=== PATIENT | male | born 1945 | race Caucasian/White ===

== ENCOUNTER → 2022-02-24 14:33 | Outpatient (CLI) | payer MEDICARE, OTHER, SELFPAY ==
[2022-02-24 15:05] LABS: Appearance Urine UA CLEAR; Bilirubin Urine UA NEGATIVE (NEGATIVE); Color Urine UA YELLOW; Glucose Urine UA NEGATIVE (Negative); Ketones Urine UA TRACE (NEGATIVE); Leukocyte Esterase Urine UA NEGATIVE (NEGATIVE); Nitrite Urine UA NEGATIVE (Negative); Occult Blood Urine UA NEGATIVE (Negative); Protein Urine UA TRACE (Negative); Specific Gravity Urine UA 1.025 (1.000-1.035); Urobilinogen Urine UA 0.2 E.U./dL (0.2)
[2022-02-24 15:16] LABS: Add Manual Diff / Slide Review NO; Basophils Absolute Auto 100 /uL (0-100); Basophils Percent Auto 1.2 % (0-2); Eosinophils Absolute Auto 100 /uL (0-450); Eosinophils Percent Auto 2.1 % (2-4); Hematocrit 41.1 % (41-53); Hemoglobin 14.2 g/dL (13.5-17.5); Lymphocytes Absolute Auto 1400 /uL (1100-4500); Lymphocytes Percent Auto 21.7 % (25-40); Mean Corpuscular HGB Conc 34.4 % (30-36); Mean Corpuscular Hemoglobin 32.5 PG (26-34); Mean Corpuscular Volume 94.4 fL (80-100); Monocytes Absolute Auto 600 /uL (0-900); Monocytes Percent Auto 9.4 % (3-14); Neutrophils Absolute Auto 4300 /uL (1500-7000); Neutrophils Percent Auto 65.6 % (50-75); Platelet Count 251 X10^3/uL (150-400); Red Blood Cell Count 4.36 X10^6/uL (4.5-5.9); Red Cell Distribution Width 12.6 % (11.6-14.8); White Blood Cell Count 6.5 X10^3/uL (4.5-11.0)
[2022-02-24 15:23] LABS: Bacteria Urine None Seen; Culture Indicated Urine Cult Not Indicated; Hyaline Casts Urine 1-5/LPF; RBC Urine None Seen (0-5/HPF); Squamous Epithelial Cell Urine None Seen (0-5/HPF); WBC Urine None Seen (0-5/HPF)
[2022-02-24 15:34] LABS: Hemoglobin A1C% w Est Avg Glu 6.2 % (4.0-6.0)
[2022-02-24 17:25] LABS: BUN Creatinine Ratio 20.9 (6-22); Blood Urea Nitrogen 23 mg/dL (9-20); Calcium 9.6 mg/dL (8.4-10.2); Carbon Dioxide 25 mmol/L (22-32); Chloride 96 mmol/L (98-107); Estimated Glomerular Filt Rate > 60 mL/min (>60); Glucose 112 mg/dL (80-110); HEMOLYSIS < 15 (0-50); Potassium 4.4 mmol/L (3.4-5.1); Sodium 135 mmol/L (137-145)
== END ==
PROVIDERS: PCP Nurse Practitioner; Referring Provider Orthopaedic Surgery; Visit Provider Orthopaedic Surgery
DX: Z01.818 Encounter for other preprocedural examination (principal); Z01.812 Encounter for preprocedural laboratory examination; R73.9 Hyperglycemia, unspecified; N39.0 Urinary tract infection, site not specified
CPT/HCPCS: 36415; 80048; 81001; 83036; 85025; 93005

== ENCOUNTER → 2022-05-15 09:54 | Outpatient (CLI) | payer MEDICARE, OTHER, SELFPAY ==
[2022-05-15 10:29] LABS: COVID19 -Nasal RAPID Negative (Negative)
== END ==
PROVIDERS: PCP Nurse Practitioner; Referring Provider Orthopaedic Surgery; Visit Provider Orthopaedic Surgery
DX: Z20.822 Contact with and (suspected) exposure to COVID-19 (principal)
CPT/HCPCS: 87635; C9803

== ENCOUNTER 2022-05-16 06:12 | Day surgery (SDC) | payer MEDICARE, OTHER, SELFPAY ==
[2022-05-09 08:32] VITALS: BMI 25.3
[2022-05-16] VITALS (14 sets, daily range): BP systolic 101–138; BP diastolic 46–74; PULSE 64–89; RESP 16–26; TEMP 36–36.7; O2SAT 91–99; BMI 25.3
--- NOTE | 2022-05-16 06:50 | DI.RAD.S_ITS ---
PROCEDURE: XR HIP W PEL IF DONE LT 2V COMPARISON: None. INDICATIONS: prosthesis placement inneroperative FINDINGS: 4 intraoperative fluoroscopic images obtained demonstrating left hip arthroplasty changes. IMPRESSION: Intraprocedural fluoroscopy was provided for guidance and anatomical localization. Please see the procedure report for further details. Dictated by: Raúl Seaman M.D. on 05/16/2022 at 21:08 Approved by: Raúl Seaman M.D. on 05/16/2022 at 21:09
[2022-05-16] MEDS: LACTATED RINGERS 1,000 ML 84 ML IV ×2 (07:12→10:18)
[2022-05-16] MEDS: VANCOMYCIN 1,000 MG/200 ML PIGGYBACK 200 MG IV (07:18)
[2022-05-16] MEDS: PREGABALIN 75 MG CAPSULE PO (07:25)
[2022-05-16] MEDS: CELECOXIB 200 MG CAPSULE PO (07:25)
[2022-05-16] MEDS: ACETAMINOPHEN 325 MG TABLET 975 MG PO (07:30)
--- NOTE | 2022-05-16 07:47 | PM.PREOP ---
Pre-operative Note COVID-19 COVID-19 status: Negative Interval Note History & Physical reviewed/Exam performed by Physician: Yes Changes to H&P: No
--- NOTE | 2022-05-16 07:47 | PM.OP.1 ---
Operative Date/Time/Diagnoses Date of procedure: 05/16/22 Time of procedure: 07:55 Pre-op diagnosis: left hip OA Post-op diagnosis: same Procedure & Clinicians Procedure: left total hip arthroplasty anterior approach Same procedure as scheduled: Yes Surgeon: Ashlee Bartholomew [employer] Laminator: Ellen Francisco Anesthesia Type: General and Spinal Operative Notes Findings: Severe left hip osteoarthritis, good bone adequate stability Closure Type: primary Specimen(s): none sent Prosthetic devices, grafts, tissues, transplants, or devices: Bartholomew and Nephew 56 mm R3, neutral poly liner, size 7 standard offset anthology, 36 x +0 cobalt chromium femoral head, one 6.5 mm screw Estimated Blood Loss (mL): 250 Blood products transfused: none Procedure in detail: The patient was brought to the operating room. Patient was carefully positioned in the supine position. Time-out was performed and antibiotics were given. Anesthesia was induced. He was positioned in the on the table in order to allow hyperextension of the hip. The left lower extremity was prepped and draped in a standard sterile fashion. An anterior left hip incision was made 1 fingerbreadth lateral to the anterior superior iliac spine and extended distally towards the greater trochanter. Dissection was carried out through skin and subcutaneous tissues. Superficial hemostasis was achieved. The fascia over the tensor fascia ankit was defined and incised with a knife. Two Allis clamps were used to grasp the fascia. Tensor fascia ankit was retracted laterally. A gelpi retractor was placed. Dissection was carried out down along the neck. The circumflex vessels were carefully identified and cauterized with the Aqua Mantis. There was good visualization of the femoral neck. A Cobra was placed superior to the neck and the gluteus fibers were carefully stripped from that superior aspect of the capsule. A 2nd retractor was placed along the inferior aspect of the neck. The rectus insertion along the capsule was partially released. A 3rd retractor that was then gently placed over the rim of the acetabulum under the rectus. Capsule was carefully incised and released from the intertrochanteric line circumferentially superior to the mid sagittal line and inferiorly to the mid sagittal line until the lesser trochanter was palpable. A tag stitch was placed both in the superior and inferior limb of the capsular insertion. Along the acetabulum capsule was also released up to the mid sagittal 12:00 position. A portion of the labrum was resected. A saw was used to perform an osteotomy at the level of the intertrochanteric line and the junction of the superior femoral neck leaving approximately 1 finger breath of residual inferior neck above the lesser trochanter. A 2nd cut was made along the femoral neck at the base of the head and a napkin ring of neck was removed. Corkscrew was placed in the femoral head and the head was removed without difficulty. Retractors were then repositioned around the acetabulum. Residual labrum was resected and additional osteophytes were removed. A reamer that was 4 mm below the templated size was placed by hand in the acetabulum and it was reamed to centralize the acetabulum. It was then reamed up to 2 under the templated size and fluoroscopy was brought in to confirm the position of the reaming and depth of reaming. I reamed 1 under the anticipated size. A trial cup was placed and noted that it was appropriately sized and fluoroscopy confirmed position and depth. The component was open and inserted without difficulty fluoroscopic imaging was used to confirm that the cup had been adequately seated and was well positioned. It was further stabilized with a single screw. Neutral poly liner was placed. The cup was tested and noted to be stable. Attention was then directed to the femur. The femur was gently hyperextended additional capsular release was performed as needed in order to allow adequate visualization of the proximal femur with elevation of the femur. Patient was placed in a hyperextended slightly adducted position with maximum external rotation. Box osteotome was used to check for any residual neck as well as sclerotic bone along the trochanter. Kinzers pepper was placed in the femur. Additional broaching was performed. Canal finder was used to determine the alignment of the canal and position. Size 1 broach was placed. The canal was then appropriately broached up to the templated size as long as there was adequate stability of the broach and serial advancement of the broach without excessive impingement. Specific attention was directed at avoiding varus attempting to direct the distal aspect of the broach more anteriorly and avoiding excessive anteversion. Trial reduction showed acceptable range of motion, good stability, no posterior impingement, amish of leg length and appropriate lateral shuck. I also hyperflexed the hip and checked that there was no impingement anteriorly and there was good stability with flexion, adduction and internal rotation. Marcaine and Exparel were injected. The stem was placed without difficulty. Repeat trial reduction and x-ray showed acceptable overall position, length, and no evidence of the femoral fracture. Final head was placed. Wound was meticulously irrigated with normal saline. The hip was reduced and additional Exparel and Marcaine were injected. The capsule was closed with interrupted nonabsorbable sutures. The fascia of the tensor was closed with interrupted and running Vicryl. No drain was placed. Any tensor fascia ankit muscle that appeared to be contused or injured which was a minimal amount was carefully resected. Capsule around the tensor was injected with Exparel and Marcaine. The skin was closed with barbed stitches for the subcutaneous tissue and skin. We also used surgical glue. The wound was dressed sterilely. Brief Betadine soak was also used and was meticulously irrigated with normal saline. Patient was transferred to recovery room in satisfactory condition. Complications: none Post-operative Condition: stable Disposition: Acute Care Plan for aftercare: The patient will be maintained on a standard total hip replacement protocol with weight bearing as tolerated and anterior hip precautions. The patient will receive Aspirin and sequential compression devices for DVT prophylaxis. The patient will be discharged home when safe for the home environment.
[2022-05-16] MEDS: CEFAZOLIN 2 GM/100 ML PREMIX 100 ML IV ×2 (08:05→15:38)
[2022-05-16] MEDS: TRANEXAMIC ACID 1,000 MG VIAL 1000 MG INJ ×2 (08:10→10:05)
--- NOTE | 2022-05-16 08:24 | SUR.OPER ---
Supine on padded Whitman table with bilateral legs secured in padded positioning boots and suspended in positioning spars, operative leg in traction per surgeon. Head on one pillow. Arm on non-operative side secured on padded armboard <90 degrees abduction. Arm on operative side padded and resting across chest then secured with tape over sheet. Padded perineal post in place per surgeon.
[2022-05-16] MEDS: BUPIVACAINE LIPOSOME 266 MG/20 ML VIAL INJ (08:30)
[2022-05-16] MEDS: BUPIVACAINE 0.25% (PF) 60 ML, EPINEPHrine 0.3 MG INJ (08:33)
--- NOTE | 2022-05-16 11:00 | DI.RAD.S_ITS ---
PROCEDURE: XR HIP W PEL IF DONE LT 2V INDICATIONS: LEFT ANTERIOR HIP POST OP TECHNIQUE: 2 view(s) of the hip acquired. COMPARISON: [facility], [place], XR HIP W PEL IF DONE LT 2V, 05/16/2022, 9:25. FINDINGS: Bones: Patient is status post left hip arthroplasty, with hardware components in expected positions. The hip joint appears congruent. The visualized bony structures appear intact. Degenerative changes of the right hip are present. Soft tissues: Overlying postoperative changes are noted. Vascular calcifications are present. IMPRESSION: Postsurgical changes from left hip arthroplasty. No definite unexpected findings visualized. Dictated by: Raúl Seaman M.D. on 05/16/2022 at 20:50 Approved by: Raúl Seaman M.D. on 05/16/2022 at 20:54
[2022-05-16] MEDS: LACTATED RINGERS 1,000 ML 125 ML IV ×2 (11:52→20:57)
[2022-05-16] MEDS: IBUPROFEN 400 MG TABLET PO ×2 (11:52→17:49)
--- NOTE | 2022-05-16 12:48 | PC.NURSE ---
Patient admitted from PACU to room 218, oriented to room and call light. VSS. Left anterior hip incision has aquacel dressing in place, CDI. Patient moving all extremities. Denies pain. Urinal placed within reach. IV fluids infusing as ordered. Continue to monitor. Anticipate physical therapy eval today.
--- NOTE | 2022-05-16 14:30 | PT.IIE ---
Current Diagnoses Bilateral primary osteoarthritis of hip (05/16/22) Surgery Performed Operation Date: 05/16/22 07:45 Actual Procedures p Total Hip Arthroplasty/Anterior Approach(Left) - Ashlee Bartholomew MD Surgical History (Last Updated 05/09/22 @ 09:24 by Abby Johnson, RN) Hx of appendectomy (1971) Hx of cholecystectomy (2018) Hx of tonsillectomy Medical History (Last Updated 05/09/22 @ 09:24 by Abby Johnson RN) Diabetes (~1987) Hearing impaired HLD (hyperlipidemia) HTN (hypertension) HECTOR (obstructive sleep apnea) Osteoarthritis Seasonal allergies Sinus drainage Physical Therapy Inpatient Evaluation/Re-Eval M1 PT/OT-IP Prior Functional Status Start: 05/16/22 15:54 Freq: NEEDED Status: Active Protocol: Document 05/16/22 14:30 AB (Rec: 05/16/22 16:08 AB [email or web address] Medical Review Prior Functional Status Medical History Reviewed Yes Communication able to make needs known Mobility and Gait pt stated that he is independent with all mobilities and ambulation without AD Social History Household Members spouse Living Arrangements House Comment pt's has previous back surgery and is limited to the assistance she will be able to provide the pt Number of Floors (Floors) 3 or More Floors Number of Stairs To Enter/Railing? lives on a split level house 1 step to enter 7 steps R rail +L ledge ascending to main level of the house Home Environment High Toilet,Walk in Shower Home Equipment Front Wheel Walker,Shower Seat with Backrest M2 PT-IP Current Condition Start: 05/16/22 15:54 Freq: NEEDED Status: Active Protocol: Document 05/16/22 14:30 AB (Rec: 05/16/22 16:08 AB [email or web address]) Physical Therapy Current Condition Current Condition Evaluation Date 05/16/22 Treatment Diagnosis s/p L EMMA anterior approach; difficulty in walking Onset Date 05/16/22 M3 PT-IP Subjective Start: 05/16/22 15:54 Freq: NEEDED Status: Active Protocol: Document 05/16/22 14:30 AB (Rec: 05/16/22 16:08 AB [email or web address]) Subjective Physical Therapy Visit Type Type Initial Evaluation Visit Start Time 14:30 Visit Stop Time 15:20 Total Visit Minutes 50 Number of SPANISH TEACHER Visits 0 Physical Therapy Visit Comments Patient Comments agreeable to do PT Therapy Pain Assessment Pain When Pain Assessed During Mobility Location Left Hip Intensity 2 Scale Used Numeric (0 - 10) Pain Management Techniques Apply Cold,Distraction, Modification of Treatment,Re- positioning,Timing of Activity with Medications M4 PT-IP Mobility and Gait Start: 05/16/22 15:54 Freq: NEEDED Status: Active Protocol: Document 05/16/22 14:30 AB (Rec: 05/16/22 16:08 [id number]) PT-Bed Mobility Assessment Supine to Sit Supine to Sit Standby Assistance Sit to Supine Sit to Supine Standby Assistance PT-Transfer Assessment Sit to and From Stand Sit to and from Stand Contact Guard Assistance,1 Person Assistance,Use of Upper Extremities Equipment Transfer Assistive Device Gait Belt,Front Wheeled Walker Orthotic/Prosthetic Devices or Brace: No Comments Mobility Comments educated pt on anterior hip precautions. BP in supine: 122/62. pt completed supine to sit SBA. able to sit on EOB SBA. BP in sittin/65. pt completed sit to stand CGA and ambulated in room using FWW CGA ~ 40 ft. pt requested to go back to bed. completed sit to supine SBA. positioned in bed. call light and table placed within reach. Gait Assessment Gait Gait Assistance Required: Contact Guard Assist Distance (Feet) 40 Able to Maintain Weight Bearing Status Yes During Gait Assistive Devices Assistive Device Gait Belt,Front Wheeled Walker Orthotic/Prosthetic Devices or Brace: No Gait Deviations General Gait Pattern Decreased Stride Length, Decreased Feet Clearance Factors Limiting Gait Function Factors Limiting Gait Function Decreased Activity Tolerance, Decreased Strength,Limited Range of Motion,Pain,Poor Balance,Poor Safety Awareness PT-Balance Assessment Sitting Balance and Reactions Static Sitting Balance Ability Normal Dynamic Sitting Balance Ability Good Standing Balance and Reactions Static Standing Balance Ability Fair Dynamic Standing Balance Ability Fair Device Used FWW M5 PT-IP Objective Assessments Start: 05/16/22 15:54 Freq: NEEDED Status: Active Protocol: Document 05/16/22 14:30 AB (Rec: 05/16/22 16:08 [email or web address]) Orientation Orientation/Cognition Level of Alertness Alert Orientation Name,Place,Situation Language Function Ability No Deficits Noted Safety Awareness Understands Safety Issues Memory Description No Deficits Noted Gross Range of Motion Lower Extremity ROM Assessment Within Functional Limits Strength Lower Extremity Strength Assessment Left Impaired Hip 3+/5 Knee 4/5 Coordination Assessment Gross Coordination Gross Coordination WNL Sensation Assessment Sensation Gross Sensation WNL Muscle Tone Muscle Tone WNL Yes M6 PT-IP Treatment Start: 05/16/22 15:54 Freq: NEEDED Status: Active Protocol: Document 05/16/22 14:30 AB (Rec: 05/16/22 16:08 AB [email or web address]) Physical Therapy Treatment Education Education Provided Precautions,Weight Bearing Status,Post-Op Packet,Safety M7 PT-IP Assessment and Plan Start: 05/16/22 15:54 Freq: NEEDED Status: Active Protocol: Document 05/16/22 14:30 AB (Rec: 05/16/22 16:08 AB [email or web address]) PT Summary Assessment and Plan Potential Rehabilitation Potential Good Status of Condition at Evaluation Stable Summary Impairments Pain,ROM,Strength,Balance, Coordination,Sensation,Tone, Cognition,Bed Mobility, Transfers,Gait,Activity Tolerance Assessment Summary pt requiring CGA with mobility using FWW. pt lives with spouse but spouse is limited with assistance she will be able to provide pt. pt. plans to go home and has outpt PT set up. will continue to assess progress. Goals Bed Mobility Goal Independent Transfer Goal Independent,Front Wheeled Walker Gait Goal Independent,Front Wheel Walker Gait Distance 300 Other Goals up/down 1 steps using FWW SBA up/down 7 steps R rail ascending+L ledge SBA Days to Meet Goals 5 Frequency of Treatment Frequency Of Treatment Twice a Day Treatment Plan Physical Therapy Treatment Plan Bed Mobility Training,Transfer Training,Gait Training, Therapeutic Exercise,Balance Retraining,Post Op Education, Discharge Planning,Hot or Cold Pack,Neuromuscular Re-ed, Coordination Retraining,Manual Therapy Precautions Anterior Hip Precautions No Hip Extension,No Hip External Rotation Weight Bearing Status Weight Bearing Status Weight Bear as Tolerated Allowed Weight Bearing Amount (enter % LLE WBAT or #) (%) Recommendations To Nursing Amount of Assist Needed 1 Person Assist Discharge Recommendations PT Discharge Recommendations Home with Assistance, Outpatient PT Transportation Needs at Discharge Private Vehicle
[2022-05-16] MEDS: ACETAMINOPHEN 325 MG TABLET 650 MG PO (15:44)
[2022-05-16] MEDS: ASPIRIN EC 81 MG TABLET PO (20:57)
[2022-05-16] MEDS: ATORVASTATIN 20 MG TABLET PO (20:57)
[2022-05-16] MEDS: FLUTICASONE 120 SPRAY/16 GM SPRAY.SUSP NASAL (20:58)
[2022-05-16] MEDS: atenoloL 50 MG TABLET PO (21:02)
[2022-05-16] MEDS: glipiZIDE 5 MG TABLET 2.5 MG PO (21:02)
[2022-05-16] MEDS: METFORMIN XR 500 MG TABLET 1000 MG PO (21:02)
[2022-05-17] MEDS: CEFAZOLIN 2 GM/100 ML PREMIX 100 ML IV (00:42)
[2022-05-17] MEDS: ACETAMINOPHEN 325 MG TABLET 650 MG PO ×2 (00:44→06:23)
[2022-05-17] MEDS: IBUPROFEN 400 MG TABLET PO ×2 (00:44→06:24)
[2022-05-17 06:20] VITALS: BP 132/54; PULSE 70; RESP 18; TEMP 36.4; O2SAT 98
--- NOTE | 2022-05-17 07:23 | PM.DS.1 ---
History of Present Illness History of Present Illness Date Patient Seen: 05/17/22 Time Patient Seen: 07:23 Chief complaint: left EMMA anterior approach Narrative: Operative Date/Time/Diagnoses Date of procedure: 05/16/22 Time of procedure: 07:55 Pre-op diagnosis: left hip OA Post-op diagnosis: same Procedure & Clinicians Procedure: left total hip arthroplasty anterior approach Same procedure as scheduled: Yes Surgeon: Ashlee Bartholomew Claims Associate: Ellen Francisco Anesthesia Type: General and Spinal Operative Notes Findings: Severe left hip osteoarthritis, good bone adequate stability Closure Type: primary Specimen(s): none sent Prosthetic devices, grafts, tissues, transplants, or devices: Bartholomew and Nephew 56 mm R3, neutral poly liner, size 7 standard offset anthology, 36 x +0 cobalt chromium femoral head, one 6.5 mm screw Estimated Blood Loss (mL): 250 Blood products transfused: none Discharge Providers Provider Discharge Date: 05/17/22 Primary care physician: LORRAINE Calvillo Consults: 05/10/22 11:53 Consult to Anesthesiology Routine Comment: Consulting Provider: Anesthesiologist Reason for consultation: PAC courtesy re: Abnormal pre-op ECG 05/16/22 06:50 Consult to Anesthesiology Routine Comment: Consulting Provider: Anesthesiologist Reason for consultation: Regional block for post operative pain control 05/16/22 10:52 Consult to Discharge Planning Routine Comment: Consult to Physical Therapy Evaluate & Treat Comment: Physician Instructions: post op EMMA protocol Consult to Respiratory Therapy Evaluate & Treat Comment: Physician Instructions: Evaluate and treat Discharge provider: Arti Valadez PA-C Summary Hospital Course Discharge Diagnosis: Left hip OA, s/p left total hip arthroplasty Hospital Course: Mr Emanuel's hospital course was unremarkable. On POD# 1 he was feeling well and wanted to go home. He was eating and voiding without difficulty and his pain was well-controlled with oral pain medication. He was evaluated by PT and felt to be safe for discharge to home. Exam Vital Signs (past 8 hours): - 05/16/22 23:55 05/17/22 06:20 Temperature 96.8 F L 97.6 F Pulse Rate 64 70 Respiratory Rate 18 18 Blood Pressure 120/54 L 132/54 L Pulse Oximetry 95 98 Oxygen Flow Rate 0 0 Oxygen Delivery Method Room Air Oxygen Flow Rate 0 Narrative Exam Narrative: 4/5 hip flexors, 5/5 quadriceps, hamstrings, DF, PF, EHL on left. Sensation to light touch intact throughout LLE. Calves soft, compressible, nontender and without palpable cords or masses. Aquacel dressing CDI. [facility] Medical History (Updated 05/09/22 @ 09:24 by Abby Johnson RN) Diabetes (~1987) Hearing impaired HLD (hyperlipidemia) HTN (hypertension) HECTOR (obstructive sleep apnea) Osteoarthritis Seasonal allergies Sinus drainage Surgical History (Updated 05/17/22 @ 07:25 by Arti Valadez PA-C) Hx of appendectomy (1971) Hx of cholecystectomy (2018) Hx of tonsillectomy Social History household members: spouse Smoking Status: Former smoker alcohol intake: former Discharge Assessment & Plan Assessment and Plan Assessment: Left hip OA, s/p left total hip arthroplasty Plan of Treatment: Discharge home, multimodal pain control, ASA 81 mg BID x 6 weeks for VTE prophylaxis, outpt PT, f/u in 2 weeks. Discharge Plan Discharge Plan Patient Disposition: Home Discharge orders & Medications Discharge Orders: Discharge (Order); Ordered 05/17/22 Ordered By: Arti Valadez Prescriptions: New acetaminophen 325 mg Tablet 650 mg PO Q6HR PRN (Reason: fever or pain) Qty: 240 0RF aspirin 81 mg Tablet,Delayed Release (Dr/Ec) 81 mg PO BID Qty: 90 0RF oxycodone 5 mg Tablet 5 mg PO Q4H PRN (Reason: pain, severe) Qty: 40 0RF Continued atorvastatin 20 mg Tablet 20 mg PO BEDTIME cetirizine 10 mg Tablet 10 mg PO DAILY amlodipine 10 mg Tablet 10 mg PO DAILY ferrous sulfate 325 mg (65 mg iron) Tablet 325 mg PO DAILY ibuprofen 200 mg Tablet 800 mg PO BID hydrochlorothiazide 25 mg Tablet 25 mg PO DAILY fluticasone propionate 50 mcg/actuation [place],Suspension 1 spray INTRANASAL BID Rx Instructions: administer into each nostril metformin 500 mg Tablet Extended Release 24 Hr 1,000 mg PO BID atenolol 50 mg Tablet 50 mg PO BEDTIME glipizide 5 mg Tablet 2.5 mg PO BID potassium chloride 20 mEq Tablet Extended Release 20 meq PO DAILY terbinafine HCl 250 mg Tablet 250 mg PO DAILY Follow up/Referrals: Jo Ann Velez ARNP [Primary Care Provider] - Ashlee Bartholomew MD [Physician] - As previously scheduled (Follow up with Dr Bartholomew on 05/31/2022 @ 2:00 pm at [facility] in [place].) Diet/Activity/Treatments Diet: Diet as Tolerated Activity: Weightbearing as tolerated to left leg. Anterior hip precautions. Cold/Heat Therapy: Ice to left hip as needed for pain. Skin/Wound/Dressing Care Report to your healthcare provider any signs of infection, such as:: chills, fever, night sweats, unusual drainage and unusual redness Dressing: May shower. Leave Aquacel dressing in place until follow up appointment. No bathing or otherwise soaking incision. Visit Report/Discharge Packet Instructions: DI for Hip Replacement Stand Alone Forms: Surgery Discharge Discharge Data Primary Care Provider: Jo Ann Velez Attending Provider: Ashlee Bartholomew VTE Deep Vein Thrombosis/Pulmonary Embolism Present on Admission: No
[2022-05-17 08:16] VITALS: BP 125/60; PULSE 67; RESP 15; TEMP 36.8; O2SAT 97
[2022-05-17] MEDS: ASPIRIN EC 81 MG TABLET PO (08:17)
[2022-05-17] MEDS: FERROUS SULFATE 325 MG TABLET PO (08:18)
[2022-05-17] MEDS: AMLODIPINE 5 MG TABLET 10 MG PO (08:19)
[2022-05-17] MEDS: glipiZIDE 5 MG TABLET 2.5 MG PO (08:19)
[2022-05-17] MEDS: hydroCHLOROthiazide 25 MG TABLET PO (08:20)
[2022-05-17] MEDS: METFORMIN XR 500 MG TABLET 1000 MG PO (08:20)
[2022-05-17] MEDS: POTASSIUM CHLORIDE 20 MEQ TAB PO (08:21)
[2022-05-17] MEDS: LORATADINE 10 MG TABLET PO (08:22)
[2022-05-17] MEDS: FLUTICASONE 120 SPRAY/16 GM SPRAY.SUSP NASAL (08:23)
--- NOTE | 2022-05-17 10:39 | PT.IPTN ---
Current Diagnoses Bilateral primary osteoarthritis of hip (05/16/22) Presence of unspecified artificial hip joint (05/16/22) Surgery Performed Operation Date: 05/16/22 07:45 Actual Procedures p Total Hip Arthroplasty/Anterior Approach(Left) - Ashlee Bartholomew MD Physical Therapy Treatment Note M2 PT-IP Current Condition Start: 05/16/22 15:54 Freq: NEEDED Status: Discharge Protocol: Document 05/16/22 14:30 AB (Rec: 05/16/22 16:08 AB [id number]) Physical Therapy Current Condition Current Condition Evaluation Date 05/16/22 Treatment Diagnosis s/p L EMMA anterior approach; difficulty in walking Onset Date 05/16/22 M3 PT-IP Subjective Start: 05/16/22 15:54 Freq: NEEDED Status: Discharge Protocol: Document 05/17/22 10:21 KS (Rec: 05/17/22 12:47 KS [id number]) Subjective Physical Therapy Visit Type Type Treatment Note Visit Start Time 10:21 Visit Stop Time 10:39 Total Visit Minutes 18 Number of ENGINEERING CONSULTANT Visits 1 Physical Therapy Visit Comments Patient Comments agreeable to do PT M4 PT-IP Mobility and Gait Start: 05/16/22 15:54 Freq: NEEDED Status: Discharge Protocol: Document 05/17/22 10:21 KS (Rec: 05/17/22 12:47 KS [id number]) PT-Bed Mobility Assessment Supine to Sit Supine to Sit Standby Assistance Sit to Supine Sit to Supine Standby Assistance Scooting Scooting to Edge of Bed Standby Assistance PT-Transfer Assessment Sit to and From Stand Sit to and from Stand Standby Assistance,Use of Upper Extremities Equipment Transfer Assistive Device Gait Belt,Front Wheeled Walker Orthotic/Prosthetic Devices or Brace: No Transfers Transfer Destination Bed Transfer Technique ambulated Transfer Ability Level of Assist Standby Assistance Comments Mobility Comments Pt in bed upon arrival and agreeable to stair training. Able to recall hip precautions . SBA for bed mobility and sit <>Stand w/ FWW. Pt ambulated ~ 200 ft to practice stairs w/ FWW SBA w/ cues for improved step length. He then ascended/ descended 9 total steps w/ BHR and ambulated remaining 200 ft back to room and got back into bed SBA. Good understanding of ther ex and safety. Pt left in bed w/ all needs in reach. Gait Assessment Gait Gait Assistance Required: Standby Assistance,1 Person Assist Distance (Feet) 200 Able to Maintain Weight Bearing Status Yes During Gait Assistive Devices Assistive Device Gait Belt,Front Wheeled Walker Orthotic/Prosthetic Devices or Brace: No Gait Deviations General Gait Pattern Decreased Stride Length, Decreased Feet Clearance Factors Limiting Gait Function Factors Limiting Gait Function Decreased Activity Tolerance, Decreased Strength,Limited Range of Motion,Pain,Poor Balance,Poor Safety Awareness Comments Gait Comments Please see mobility Stair Climbing Assessment Evaluation Level of Assist On Stairs Standby Assistance,1 Person Assistance Devices Stair Climbing Assistive Devices Left Railing,Right Railing Technique/Endurance Stair Climbing Direction Ascend and Descend Stair Climbing Technique Step to Step Number of Steps Climbed 3 Stair Climbing Set # Repetitions (reps) 3 Comments Stair Climbing Comments Pt ascended/descended 9 total steps w/ BHR and SBA w/ min cues for sequencing and step to pattern. No LOB throughout. Pt feels confident to perform stairs at home. PT-Balance Assessment Sitting Balance and Reactions Static Sitting Balance Ability Normal Dynamic Sitting Balance Ability Good Standing Balance and Reactions Static Standing Balance Ability Good Dynamic Standing Balance Ability Good Device Used FWW M5 PT-IP Objective Assessments Start: 05/16/22 15:54 Freq: NEEDED Status: Discharge Protocol: Document 05/16/22 14:30 AB (Rec: 05/16/22 16:08 AB [id number]) Orientation Orientation/Cognition Level of Alertness Alert Orientation Name,Place,Situation Language Function Ability No Deficits Noted Safety Awareness Understands Safety Issues Memory Description No Deficits Noted Gross Range of Motion Lower Extremity ROM Assessment Within Functional Limits Strength Lower Extremity Strength Assessment Left Impaired Hip 3+/5 Knee 4/5 Coordination Assessment Gross Coordination Gross Coordination WNL Sensation Assessment Sensation Gross Sensation WNL Muscle Tone Muscle Tone WNL Yes M6 PT-IP Treatment Start: 05/16/22 15:54 Freq: NEEDED Status: Discharge Protocol: Document 05/17/22 10:21 KS (Rec: 05/17/22 12:47 KS [id number]) Physical Therapy Treatment Education Education Provided Precautions,Weight Bearing Status,Post-Op Packet,Safety M7 PT-IP Assessment and Plan Start: 05/16/22 15:54 Freq: NEEDED Status: Discharge Protocol: Document 05/17/22 10:21 KS (Rec: 05/17/22 12:47 KS [id number]) PT Summary Assessment and Plan Potential Rehabilitation Potential Good Summary Impairments Pain,ROM,Strength,Balance, Coordination,Sensation,Tone, Cognition,Bed Mobility, Transfers,Gait,Activity Tolerance Progress Towards Goals Progressing Toward Goals Assessment Summary SBA for bed mobility, ambulation w/ FWW, and stair training. Ambulated ~200 ft and completed 9 total stairs. Good awareness and adherence to hip precautions. Pt feels safe to d/c home w/ and will benefit from OPPT to improve strength, stability and ROM. Agrees to use FWW until cleared by OPPT to graduate to next LRAD. Goals Bed Mobility Goal Independent Transfer Goal Independent,Front Wheeled Walker Gait Goal Independent,Front Wheel Walker Gait Distance 300 Other Goals up/down 1 steps using FWW SBA up/down 7 steps R rail ascending+L ledge SBA Days to Meet Goals 5 Frequency of Treatment Frequency Of Treatment Twice a Day Treatment Plan Physical Therapy Treatment Plan Bed Mobility Training,Transfer Training,Gait Training, Therapeutic Exercise,Balance Retraining,Post Op Education, Discharge Planning,Hot or Cold Pack,Neuromuscular Re-ed, Coordination Retraining,Manual Therapy Precautions Anterior Hip Precautions No Hip Extension,No Hip External Rotation Weight Bearing Status Weight Bearing Status Weight Bear as Tolerated Allowed Weight Bearing Amount (enter % LLE WBAT or #) (%) Recommendations To Nursing Amount of Assist Needed 1 Person Assist Discharge Recommendations PT Discharge Recommendations Home with Assistance, Outpatient PT Transportation Needs at Discharge Private Vehicle
--- NOTE | 2022-05-17 12:32 | CM.DPNOTE ---
Initial DCP Assessment Note Pt is a 76 yo male, resident of [place], now POD#1 from left hip surgery by Dr Bartholomew PCP: Jo Ann Velez Payer: [facility] Reviewed chart, pt discussed in multidisciplinary rounds this morning. Therapy has cleared pt for return home w/family to assist and pt has planned for home, DC order from Ortho has already been initiated this morning. No barriers identified at this time to patient's safe discharge home w/family to assist; close outpatient f/u recommended. GUERRERO Ring
== END 2022-05-17 11:50 | disposition home or self-care (01) ==
LOC: OR 06:14 → AC 06:45
PROVIDERS: PCP Nurse Practitioner; Referring Provider Orthopaedic Surgery; Visit Provider Orthopaedic Surgery
PROC: (CPT 27130; principal; 2022-05-16 07:45)
DX: M16.12 Unilateral primary osteoarthritis, left hip (principal); G47.33 Obstructive sleep apnea (adult) (pediatric); I10 Essential (primary) hypertension
CPT/HCPCS: 27130; 73502; 76000; 82962; 97116; 97161; 97530; C1776; C9290; J0171; J0690; J1100; J2250; J2405; J2704; J3010

== ENCOUNTER 2022-09-27 08:36 | Emergency (ER) | payer MEDICARE, OTHER, SELFPAY ==
[2022-05-16 11:35] VITALS: BMI 25.3
[2022-09-27] VITALS (64 sets, daily range): BP systolic 112–162; BP diastolic 55–69; PULSE 51–77; RESP 7–40; TEMP 36.3–36.6; O2SAT 89–100; BMI 25.8
--- NOTE | 2022-09-27 09:05 | ED.LOWEXIN ---
HPI - Extremity Injury (Lower) General Chief Complaint: Extremity Injury, Lower Stated Complaint: Left hip popped out Time Seen by Provider: 09/27/22 09:04 Source: patient Mode of arrival: EMS Limitations: no limitations History of Present Illness HPI Narrative: This is a 76-year-old male history of hypertension dyslipidemia, diabetes and sleep apnea with left hip surgery in February of 2022 with concern for left hip dislocation. Patient states he was bent over with his knees flexed sort of in a squat position to just a Velcro on his shoe when he felt severe pain in like a pop sensation in his left hip which has been persistent since then. Patient denies any numbness or tingling. He denies any new weakness. He denies any falls, patient states he was not seated but was actually sort of squatting. He is not had similar episodes in the past. He denies any other injuries or pain or issues. Patient states prior surgeries include a right anterior hip repair in February of [address] Gisell Bartholomew here at [facility], tonsillectomy and appendectomy. No known drug allergies. No tobacco, alcohol or illicit. His primary care is at [facility]. Patient notes he has sleep apnea but does not use CPAP machine he uses snore strip. He states he did receive pain medication in route with EMS he states it made him very sleepy, pain slowly increasing but he defers anything right now. Related Data Home Medications Medication Instructions Recorded Confirmed amlodipine 10 mg tablet 10 mg PO DAILY 05/09/22 05/16/22 atenolol 50 mg tablet 50 mg PO BEDTIME 05/09/22 05/16/22 atorvastatin 20 mg tablet 20 mg PO BEDTIME 05/09/22 05/16/22 cetirizine 10 mg tablet 10 mg PO DAILY 05/09/22 05/09/22 ferrous sulfate 325 mg (65 mg 325 mg PO DAILY 05/09/22 05/09/22 iron) tablet fluticasone propionate 50 1 spray intranasal BID 05/09/22 05/09/22 mcg/actuation nasal spray,suspension glipizide 5 mg tablet 2.5 mg PO BID 05/09/22 05/16/22 hydrochlorothiazide 25 mg tablet 25 mg PO DAILY 05/09/22 05/16/22 ibuprofen 200 mg tablet 800 mg PO BID 05/09/22 05/09/22 metformin 500 mg tablet,extended 1,000 mg PO BID 05/09/22 05/16/22 release 24 hr potassium chloride 20 mEq 20 meq PO DAILY 05/09/22 05/16/22 tablet,extended release terbinafine HCl 250 mg tablet 250 mg PO DAILY 05/09/22 05/09/22 Previous Rx's Medication Instructions Recorded acetaminophen 325 mg tablet 650 mg PO Q6HR PRN fever or pain 05/17/22 #240 tabs aspirin 81 mg tablet,delayed 81 mg PO BID #90 tabs 05/17/22 release oxycodone 5 mg tablet 5 mg PO Q4H PRN pain, severe #40 05/17/22 tabs Allergies Allergy/AdvReac Type Severity Reaction Status Date / Time No Known Drug Allergies Allergy Verified 05/16/22 07:31 Review of Systems Review of Systems ROS Unobtainable: All systems reviewed & are unremarkable except as noted in HPI and below Patient History Medical History Diabetes (~1987) Hearing impaired HLD (hyperlipidemia) HTN (hypertension) HECTOR (obstructive sleep apnea) Osteoarthritis Seasonal allergies Sinus drainage Surgical History Hx of appendectomy (1971) Hx of cholecystectomy (2018) Hx of tonsillectomy Social History household members: spouse Smoking Status: Former smoker alcohol intake: former Smoking Status: Former smoker Substance Use Type: does not use Exam Narrative Exam Narrative: GENERAL: Alert and oriented x three, male in mild distress. HEENT: Head normocephalic, atraumatic, EOMI, pupils reactive, face symmetric, moist mucous membranes NECK: Supple, full range of motion CARDIOVASCULAR: Regular rate and rhythm without murmurs, rubs or gallops. RESPIRATORY: Breath sounds equal bilaterally, no wheezes rales or rhonchi. ABDOMEN: Soft, nontender. Normoactive bowel sounds all 4 quadrants. No guarding or rebound, rigidity, no mass : No CVA tenderness EXTREMITIES: Decreased range of motion of the left hip, patient shortened on the left, no clubbing or edema. Neurovascularly intact. Patient has dopplerable pulses in the left and right. Normal sensation to light touch throughout the leg. Normal movement plantar flexion and extension. NEUROLOGICAL: Cranial nerves II through XII grossly intact. Moving all extremities SKIN: Warm, dry, no petechiae, no rashes or lesions. Initial Vital Signs Initial Vital Signs: Vital Signs Pulse Rate 55 L 09/27/22 08:45 Pulse Oximetry 98 09/27/22 08:45 Procedures Orthopedic Joint Reduction Joint #1: Time Out Performed: Yes Side: left Joint Reduction Location: hip Analgesia: procedural sedation Technique used: other (Patient was flexed at the left hip with knee towards chest, upward traction on the hip with the knee flexed with slight internal rotation and patient reduced. Patient hip did pop back out while being straightened and this was performed again. ) Post-reduction neuro exam: intact Post-reduction vascular: intact Post Reduction X-Ray Obtained: Yes Post Reduction X-Ray Results: reduced Patient Tolerated Procedure: Well Additional Comments: Patient hip was fairly easily reduced but then did pop back out as leg was being straighten. Procedure was performed formed again with a similar technique and patient was straightened little bit more slowly with direct pressure on the hip itself and x-rays were obtained. Procedural Sedation Consent signed: Yes Indication: fracture/dislocation reduction (hip left) Mallampati Airway Classification: Class II Time of Last PO Intake: 07:00 Preparation: color television console monitor applied, pulse oximeter, capnometry used, supplemental O2 applied, suction/airway equipment at bedside and IV secured IV Propofol dose (mg): 100 ED Sedation Level: Moderate (Concious) Patient Tolerated Procedure: Well Complications: hypoventilation Interventions: Airway repositioned and Assist by BVM Additional Comments: This is a 76-year-old male who received 50 mg propofol followed by 25 and then additional 25 mg in aliquots as patient was still awake after the 1st 75 mg, patient was much more sedated after the last 25 mg he did have some hypoventilation dropped O2 to 88% had oxygen and BVM as his end-tidal CO2 dropped. Patient recovered well after several minutes. Course Orders Ordered: ED Orders 09/27/22 10:53 XR hip w pel if done LT 2V Stat Discontinued Medications Fentanyl (Fentanyl 100 Mcg/2 Ml Inj) 25 mcg IV Q1H PRN PRN Reason: Pain, Severe (7-10) Last Admin: 09/27/22 10:18 Dose: 25 mcg Documented By: ALFRED Propofol (Propofol 200 Mg/20 Ml Vial) 75 mg 1 mg/kg (75 mg) IV NOW ONE Stop: 09/27/22 10:48 Last Admin: 09/27/22 11:20 Dose: 75 mg Documented By: ALFRED Propofol (Propofol 200 Mg/20 Ml Vial) 25 mg IV NOW ONE Stop: 09/27/22 11:35 Last Admin: 09/27/22 11:22 Dose: 25 mg Documented By: ALFRED Vital Signs Vital signs: Vital Signs - 8 hr 09/27/22 11:27 09/27/22 11:27 09/27/22 11:30 Temperature Pulse Rate 71 Respiratory Rate 24 Blood Pressure 162/61 H 140/59 L Pulse Oximetry 100 Oxygen Delivery Method Nasal Cannula Oxygen Flow Rate 2 09/27/22 11:30 09/27/22 11:32 09/27/22 11:33 Temperature Pulse Rate 71 70 Respiratory Rate 20 20 Blood Pressure 137/68 Pulse Oximetry 100 100 Oxygen Delivery Method Nasal Cannula Nasal Cannula Oxygen Flow Rate 2 2 09/27/22 11:33 09/27/22 11:35 09/27/22 11:36 Temperature Pulse Rate 74 73 Respiratory Rate 20 20 Blood Pressure 122/57 L Pulse Oximetry 99 99 Oxygen Delivery Method Room Air Room Air Oxygen Flow Rate 09/27/22 11:36 09/27/22 11:38 09/27/22 11:39 Temperature Pulse Rate 74 76 Respiratory Rate 20 16 Blood Pressure 113/60 Pulse Oximetry 99 Oxygen Delivery Method Room Air Oxygen Flow Rate 09/27/22 11:39 09/27/22 11:40 09/27/22 11:41 Temperature Pulse Rate 72 74 73 Respiratory Rate 15 22 23 Blood Pressure Pulse Oximetry 99 97 97 Oxygen Delivery Method Room Air Room Air Oxygen Flow Rate 09/27/22 11:42 09/27/22 11:50 09/27/22 11:45 Temperature 98 F Pulse Rate 60 74 74 Respiratory Rate 20 18 11 L Blood Pressure 112/55 L 119/59 L 113/56 L Pulse Oximetry 92 93 96 Oxygen Delivery Method Room Air Room Air Room Air Oxygen Flow Rate 09/27/22 11:45 09/27/22 11:48 09/27/22 11:48 Temperature Pulse Rate 75 73 Respiratory Rate 11 L Blood Pressure 113/56 L Pulse Oximetry 95 Oxygen Delivery Method Room Air Oxygen Flow Rate 09/27/22 11:50 09/27/22 11:50 09/27/22 11:55 Temperature Pulse Rate 74 Respiratory Rate 13 Blood Pressure 119/59 L 117/58 L Pulse Oximetry 94 Oxygen Delivery Method Room Air Oxygen Flow Rate 09/27/22 11:55 Temperature Pulse Rate 68 Respiratory Rate 14 Blood Pressure Pulse Oximetry 97 Oxygen Delivery Method Room Air Oxygen Flow Rate MDM - Extremity Injury (Lower) Lab Data Labs: Lab Results 09/27/22 Range/Units 09:18 SARS-CoV-2 (PCR) Negative (Negative) Imaging Data Extremity x-ray #1: Radiologist's Impression: [address] [address] XRay Report Signed Patient: Joshua Emanuel MR#: [id number] : 1945 Acct:[id number] Age/Sex: 76 / M Date of Service: 09/27/22 Loc: ED Accession Number: [id number] ?? Procedure: XR hip w pel if done LT 2V Ordering Provider: Edwige Quinonez D.O. PROCEDURE:? XR HIP W PEL IF DONE LT 2V ? INDICATIONS:? left hip pain, ? dislocation, bent over and felt pain ? TECHNIQUE:? AP pelvis with lateral view(s) of the left hip(s).? ? COMPARISON:? [facility], CR, XR HIP W PEL IF DONE LT 2V, 05/16/2022, 10:37. ? FINDINGS:? ? Bones:? Posterior superior dislocation total left hip arthroplasty.? No evidence of loosening or associated fracture.? Moderately severe right hip degenerative change. ? Soft tissues:? The visualized bowel gas pattern is normal.? No suspicious soft tissue calcifications.? ? ? IMPRESSION:? Dislocated total left hip arthroplasty. ? Dictated by: Celio Bergman M.D. on 09/27/2022 at 10:12 ? ? Approved by: Celio Bergman M.D. on 09/27/2022 at 10:12?? [facility] Narrative Medical decision making narrative: This is a 76-year-old male who is approximately 6 months post right anterior hip repair with Dr. Gisell Bartholomew, patient was bending over with his knees and hips flexed when he felt his left hip pop and had significant pain and was found to be dislocated. Patient has not had prior dislocations in the past he would no other fall or traumas. Had dopplerable pulses in the feet bilaterally on otherwise neurovascularly intact no numbness tingling or other changes. Patient had procedural sedation with reduction. Repeat x-rays show hip is in place. I spoke with Dr. Trinidad with Orthopedic surgery. She recommends knee immobilizer to prevent particularly mL mechanism which makes patient more likely to dislocate and follow-up outpatient. As well as hip dislocation precautions. Patient has ambulated here in the department he feels much better afterwards. Discharge Plan Departure Patient Disposition: Home Clinical Impression: Closed dislocation of left hip Qualifiers: Encounter type: initial encounter Qualified Code(s): S73.005A - Unspecified dislocation of left hip, initial encounter Instructions: Hip Dislocation Activity Restrictions/Additional Instructions: Please follow-up with orthopedic surgery, call to set up an appointment in the next week or so. You are going to want to avoid movements such as bending at the hip with flexion of the knee and/or rotation at the same time. Continue your knee immobilizer until you follow-up with orthopedic surgery. This is to prevent you from bending at the knee which will make you less likely to have recurrent dislocation. If the doctor gave you a sedative: For 24 hours, don't do anything that requires attention to detail. This includes going to work, making important decisions, or signing any legal documents. It takes time for the medicine's effects to completely wear off. For your safety, do not drive or operate any machinery that could be dangerous. Wait until the medicine wears off and you can think clearly and react easily. Your doctor will give you safety precautions to keep your hip centred in its socket during the healing period. Be sure to follow these precautions. Keep your knees and toes pointed forward when you sit in a chair, walk, or stand. Do not sit with your legs crossed. Do not bend at the waist more than 90?. Be careful when leaning or when moving in bed to keep your legs as straight ahead as possible. If you have a hip brace, wear it as directed. Do not remove it unless your doctor says you can. If you remove the brace to shower, be extremely careful. Follow hip precautions to limit hip movement. Rest your hip as much as you can. You will need to change your activities to avoid movements that irritate the hip. If your hip is swollen, put ice or a cold pack on it for 10 to 20 minutes at a time. Try to do this every 1 to 2 hours for the next 3 days (when you are awake) or until the swelling goes down. Put a thin cloth between the ice and your skin. Prescriptions: No Action atorvastatin 20 mg Tablet 20 mg PO BEDTIME cetirizine 10 mg Tablet 10 mg PO DAILY amlodipine 10 mg Tablet 10 mg PO DAILY ferrous sulfate 325 mg (65 mg iron) Tablet 325 mg PO DAILY ibuprofen 200 mg Tablet 800 mg PO BID hydrochlorothiazide 25 mg Tablet 25 mg PO DAILY fluticasone propionate 50 mcg/actuation [place],Suspension 1 spray INTRANASAL BID Rx Instructions: administer into each nostril metformin 500 mg Tablet Extended Release 24 Hr 1,000 mg PO BID atenolol 50 mg Tablet 50 mg PO BEDTIME glipizide 5 mg Tablet 2.5 mg PO BID potassium chloride 20 mEq Tablet Extended Release 20 meq PO DAILY terbinafine HCl 250 mg Tablet 250 mg PO DAILY acetaminophen 325 mg Tablet 650 mg PO Q6HR PRN (Reason: fever or pain) Qty: 240 0RF aspirin 81 mg Tablet,Delayed Release (Dr/Ec) 81 mg PO BID Qty: 90 0RF oxycodone 5 mg Tablet 5 mg PO Q4H PRN (Reason: pain, severe) Qty: 40 0RF Referrals: Jo Ann Velez ARNP [Primary Care Provider] - Ashlee Bartholomew MD [Physician] - Stand Alone Forms: Patient Portal/API
--- NOTE | 2022-09-27 09:10 | DI.RAD.S_ITS ---
PROCEDURE: XR HIP W PEL IF DONE LT 2V INDICATIONS: left hip pain, ? dislocation, bent over and felt pain TECHNIQUE: AP pelvis with lateral view(s) of the left hip(s). COMPARISON: [facility], , XR HIP W PEL IF DONE LT 2V, 05/16/2022, 10:37. FINDINGS: Bones: Posterior superior dislocation total left hip arthroplasty. No evidence of loosening or associated fracture. Moderately severe right hip degenerative change. Soft tissues: The visualized bowel gas pattern is normal. No suspicious soft tissue calcifications. IMPRESSION: Dislocated total left hip arthroplasty. Dictated by: Celio Bergman M.D. on 09/27/2022 at 10:12 Approved by: Celio Bergman M.D. on 09/27/2022 at 10:12
[2022-09-27 09:42] LABS: COVID19 -Nasal RAPID Negative (Negative)
[2022-09-27] MEDS: fentaNYL 100 MCG/2 ML INJ 25 MCG IV (10:18)
--- NOTE | 2022-09-27 10:53 | DI.RAD.S_ITS ---
PROCEDURE: XR HIP W PEL IF DONE LT 2V INDICATIONS: post reduc TECHNIQUE: AP pelvis with lateral view(s) of the left hip(s). COMPARISON: [facility], , XR HIP W PEL IF DONE LT 2V, 09/27/2022, 9:46. FINDINGS: Bones: Successful reduction of dislocated total left hip arthroplasty. No evidence of hardware failure or loosening. No fracture identified. Severe right hip degenerative arthritis. Soft tissues: The visualized bowel gas pattern is normal. No suspicious soft tissue calcifications. IMPRESSION: Successful reduction of dislocated left hip prosthesis. Dictated by: Celio Bergman M.D. on 09/27/2022 at 11:54 Approved by: Celio Bergman M.D. on 09/27/2022 at 11:54
[2022-09-27] MEDS: propofoL 200 MG/20 ML VIAL 75 MG IV (11:20)
[2022-09-27] MEDS: propofoL 200 MG/20 ML VIAL 25 MG IV (11:22)
--- NOTE | 2022-09-27 12:08 | PC.NURSE ---
passed ambulation trial, knee immobilizer and walker, reviewed hip precautions
--- NOTE | 2022-09-27 12:08 | PC.NURSE ---
hip position pillow home with pt as well
== END 2022-09-27 12:16 | disposition home or self-care (01) ==
PROVIDERS: Emergency Provider Emergency Medicine; PCP Nurse Practitioner
DX: S73.005A Unspecified dislocation of left hip, initial encounter (principal); Z96.643 Presence of artificial hip joint, bilateral; Z20.822 Contact with and (suspected) exposure to COVID-19
CPT/HCPCS: 27265; 36415; 73502; 87635; 96374; 99152; 99284; 99285; C9803; J2704; J3010

== ENCOUNTER 2022-11-16 12:46 | Emergency (ER) | payer MEDICARE, OTHER, SELFPAY ==
[2022-05-16 11:35] VITALS: BMI 25.3
[2022-11-16] VITALS (20 sets, daily range): BP systolic 115–162; BP diastolic 56–73; PULSE 75–80; RESP 10–22; TEMP 36.1; O2SAT 89–99; BMI 26.9
--- NOTE | 2022-11-16 13:01 | DI.RAD.S_ITS ---
PROCEDURE: XR HIP W PEL IF DONE LT 2V INDICATIONS: hip pain, likely dislocated TECHNIQUE: AP pelvis with lateral view(s) of the left hip(s). COMPARISON: [facility], , XR HIP W PEL IF DONE LT 2V, 09/27/2022, 11:18. FINDINGS: Bones: There is a posterior dislocation of the left hip prosthesis. No acute fracture. Soft tissues: The visualized bowel gas pattern is normal. No suspicious soft tissue calcifications. IMPRESSION: Posterior left hip prosthesis dislocation. Dictated by: Rin Lizarraga M.D. on 11/16/2022 at 13:58 Approved by: Rin Lizarraga M.D. on 11/16/2022 at 13:58
--- NOTE | 2022-11-16 13:08 | PC.NURSE ---
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 Hx of hip dislocation in the past, has a L hip replacement. Pt has L leg bent and braced by a pillow for comfort. Pulses and BELLY ROLLER intact distal to L hip
--- NOTE | 2022-11-16 13:45 | ED_ITS ---
HPI - Extremity Injury (Lower) General Chief Complaint: Extremity Injury, Lower Stated Complaint: Left Hip Dislocation Time Seen by Provider: 11/16/22 13:00 Source: patient and EMS Mode of arrival: EMS History of Present Illness HPI Narrative: 77-year-old male nonsmoker with history of hypertension, hyperlipidemia and prior left hip surgery presents by EMS for evaluation of left hip pain and suspected dislocation. He was leaning forward and felt a popping sensation and now has out raises pain and an inability to ambulate. He denies any head neck or back pain. He has previously dislocated once about 2 months ago. Related Data Home Medications Medication Instructions Recorded Confirmed amlodipine 10 mg tablet 10 mg PO DAILY 05/09/22 05/16/22 atenolol 50 mg tablet 50 mg PO BEDTIME 05/09/22 05/16/22 atorvastatin 20 mg tablet 20 mg PO BEDTIME 05/09/22 05/16/22 cetirizine 10 mg tablet 10 mg PO DAILY 05/09/22 05/09/22 ferrous sulfate 325 mg (65 mg 325 mg PO DAILY 05/09/22 05/09/22 iron) tablet fluticasone propionate 50 1 spray intranasal BID 05/09/22 05/09/22 mcg/actuation nasal spray,suspension glipizide 5 mg tablet 2.5 mg PO BID 05/09/22 05/16/22 hydrochlorothiazide 25 mg tablet 25 mg PO DAILY 05/09/22 05/16/22 ibuprofen 200 mg tablet 800 mg PO BID 05/09/22 05/09/22 metformin 500 mg tablet,extended 1,000 mg PO BID 05/09/22 05/16/22 release 24 hr potassium chloride 20 mEq 20 meq PO DAILY 05/09/22 05/16/22 tablet,extended release terbinafine HCl 250 mg tablet 250 mg PO DAILY 05/09/22 05/09/22 Previous Rx's Medication Instructions Recorded acetaminophen 325 mg tablet 650 mg PO Q6HR PRN fever or pain 05/17/22 #240 tabs aspirin 81 mg tablet,delayed 81 mg PO BID #90 tabs 05/17/22 release oxycodone 5 mg tablet 5 mg PO Q4H PRN pain, severe #40 05/17/22 tabs Allergies Allergy/AdvReac Type Severity Reaction Status Date / Time No Known Drug Allergies Allergy Verified 04/27/23 12:59 Review of Systems Review of Systems Narrative: GENERAL: Denies chills, fatigue, malaise, fever, sweats. HEENT: Denies sinus pain, ear pain, sore throat, difficulty swallowing, dizziness. RESPIRATORY: Denies dyspnea, cough, wheezing, hemoptysis, sputum. CARDIOVASCULAR: Denies chest pain, palpitations, orthopnea, edema, GASTROINTESTINAL: Denies nausea, vomiting, abdominal pain, diarrhea, constipation, melena. : Denies dysuria, frequency, incontinence, hematuria, urinary retention. MUSCULOSKELETAL: See HPI SKIN: Denies rash, skin lesions, or other NEUROLOGIC: Denies weakness, headache, numbness, change in speech, confusion, seizures, incoordination. PSYCHIATRIC: No concerning psychosocial issues. 12 point review of systems is negative except for those stated above Patient History Medical History Diabetes (~1988) Hearing impaired HLD (hyperlipidemia) HTN (hypertension) HECTOR (obstructive sleep apnea) Osteoarthritis Seasonal allergies Sinus drainage Surgical History Hx of appendectomy (1971) Hx of cholecystectomy (2019) Hx of tonsillectomy Social History household members: spouse Smoking Status: Former smoker alcohol intake: former Smoking Status: Former smoker alcohol intake frequency: 0-2 drinks per day Substance Use Type: does not use Exam Narrative Exam Narrative: GENERAL: [77] year old patient appears stated age. Well-developed patient, in mild distress. HEAD: Atraumatic. Normocephalic. EYES: Pupils equal round and reactive. Extraocular motions intact. No scleral icterus. No injection or drainage. ENT: Nose without bleeding, purulent drainage. Throat without erythema, tonsillar hypertrophy or exudate. Airway patent. NECK: Trachea midline. Non tender CARDIOVASCULAR: Regular rate and rhythm without murmurs, gallops, or rubs. RESPIRATORY: Clear to auscultation. Breath sounds equal bilaterally. No wheezes, rales, or rhonchi. GASTROINTESTINAL: Abdomen soft, non-tender, nondistended. EXTREMITIES: shortening and rotation, closed, isolated and neurovascularly intact BACK: Nontender without deformity or crepitance. No flank tenderness. NEURO: AOx3. SKIN: No rash or erythema of visible areas Initial Vital Signs Initial Vital Signs: Vital Signs Pulse Rate 79 11/16/22 12:52 Blood Pressure 134/62 11/16/22 12:52 Pulse Oximetry 98 11/16/22 12:52 Procedures Orthopedic Joint Reduction Joint #1: Time Out Performed: Yes Side: left Joint Reduction Location: hip Analgesia: procedural sedation Technique used: other Post-reduction neuro exam: intact Post-reduction vascular: intact Post Reduction X-Ray Obtained: Yes Post Reduction X-Ray Results: reduced Patient Tolerated Procedure: Well Orthopedic Splinting/Casting Injury #1: Side: left Lower Extremity Injury Location: knee Lower Extremity Immobilizer: knee immobilizer Placed by: Nursing Procedural Sedation Consent signed: Yes Time out performed: Yes Indication: fracture/dislocation reduction ASA Class: II Mallampati Airway Classification: Class II Preparation: tours captain applied, pulse oximeter, capnometry used, supplemental O2 applied, suction/airway equipment at bedside and IV secured IV Propofol dose (mg): 100 ED Sedation Level: Moderate (Concious) Patient Tolerated Procedure: Well Complications: hypoxia Interventions: Airway repositioned Course Orders Ordered: ED Orders 11/16/22 13:57 XR hip w pel if done LT 2V Stat Discontinued Medications Propofol (Propofol 200 Mg/20 Ml Vial) 150 mg 2 mg/kg (150 mg) IV NOW ONE Stop: 11/16/22 13:02 Last Admin: 11/16/22 13:51 Dose: 100 mg Documented By: [facility] Vital Signs Vital signs: Vital Signs - 8 hr 11/16/22 14:20 11/16/22 14:40 11/16/22 14:50 Pulse Rate 78 80 80 Respiratory Rate 15 13 14 Blood Pressure 123/62 Pulse Oximetry 94 97 97 Oxygen Delivery Method 11/16/22 15:21 Pulse Rate 80 Respiratory Rate 20 Blood Pressure 128/63 Pulse Oximetry 97 Oxygen Delivery Method Room Air MDM - Extremity Injury (Lower) MDM Narrative Medical decision making narrative: [77] year old patient presents with Multiple etiologies for patient's symptoms considered including, but not limited to: [ fracture, dislocation versus other] Prior Charts reviewed in our EMR Primary Historian: patient Imaging reviewed: initial x-ray demonstrates dislocation, subsequent x-ray confirms reduction Patient's symptoms improved over duration of stay with above-stated therapies. Findings and discharge diagnosis discussed with patient/family followed by verbalization of understanding Return precautions discussed with patient/family whom verbalize understanding of diagnosis and plan Discharge Plan Departure Patient Disposition: Home Clinical Impression: Dislocation, hip closed Activity Restrictions/Additional Instructions: activity Restrictions/Additional Instructions: Please follow-up with orthopedic surgery, call to set up an appointment in the next week or so. You are going to want to avoid movements such as bending at the hip with flexion of the knee and/or rotation at the same time. Continue your knee immobilizer until you follow-up with orthopedic surgery.? This is to prevent you from bending at the knee which will make you less likely to have recurrent dislocation.? * If the doctor gave you a sedative: * * For 24 hours, don't do anything that requires attention to detail. This includes going to work, making important decisions, or signing any legal documents. It takes time for the medicine's effects to completely wear off. * For your safety, do not drive or operate any machinery that could be dangerous. Wait until the medicine wears off and you can think clearly and react easily. * Your doctor will give you safety precautions to keep your hip centred in its socket during the healing period. Be sure to follow these precautions. * * Keep your knees and toes pointed forward when you sit in a chair, walk, or stand. * Do not sit with your legs crossed. * Do not bend at the waist more than 90?. Be careful when leaning or when moving in bed to keep your legs as straight ahead as possible. * If you have a hip brace, wear it as directed. Do not remove it unless your doctor says you can. If you remove the brace to shower, be extremely careful. Follow hip precautions to limit hip movement. * Rest your hip as much as you can. You will need to change your activities to avoid movements that irritate the hip. * If your hip is swollen, put ice or a cold pack on it for 10 to 20 minutes at a time. Try to do this every 1 to 2 hours for the next 3 days (when you are awake) or until the swelling goes down. Put a thin cloth between the ice and your skin. Prescriptions: No Action atorvastatin 20 mg Tablet 20 mg PO BEDTIME cetirizine 10 mg Tablet 10 mg PO DAILY amlodipine 10 mg Tablet 10 mg PO DAILY ferrous sulfate 325 mg (65 mg iron) Tablet 325 mg PO DAILY ibuprofen 200 mg Tablet 800 mg PO BID hydrochlorothiazide 25 mg Tablet 25 mg PO DAILY fluticasone propionate 50 mcg/actuation [place],Suspension 1 spray INTRANASAL BID Rx Instructions: administer into each nostril metformin 500 mg Tablet Extended Release 24 Hr 1,000 mg PO BID atenolol 50 mg Tablet 50 mg PO BEDTIME glipizide 5 mg Tablet 2.5 mg PO BID potassium chloride 20 mEq Tablet Extended Release 20 meq PO DAILY terbinafine HCl 250 mg Tablet 250 mg PO DAILY acetaminophen 325 mg Tablet 650 mg PO Q6HR PRN (Reason: fever or pain) Qty: 240 0RF aspirin 81 mg Tablet,Delayed Release (Dr/Ec) 81 mg PO BID Qty: 90 0RF oxycodone 5 mg Tablet 5 mg PO Q4H PRN (Reason: pain, severe) Qty: 40 0RF Referrals: Jo Ann Velez ARNP [Primary Care Provider] - Ashlee Bartholomew MD [Physician] - Stand Alone Forms: Patient Portal/API
[2022-11-16] MEDS: propofoL 200 MG/20 ML VIAL 150 MG IV (13:51)
--- NOTE | 2022-11-16 13:57 | DI.RAD.S_ITS ---
PROCEDURE: XR HIP W PEL IF DONE LT 2V INDICATIONS: post reduction TECHNIQUE: AP pelvis with lateral view(s) of the left hip(s). COMPARISON: [facility], , XR HIP W PEL IF DONE LT 2V, 11/16/2022, 13:08. FINDINGS: Bones: There has been interval reduction of the previously dislocated left hip arthroplasty. There is good anatomic alignment and hardware appears intact. No visualized hardware osseous fracture. Severe arthritic changes noted within the right hip. Soft tissues: The visualized bowel gas pattern is normal. No suspicious soft tissue calcifications. IMPRESSION: Interval reduction with good anatomic alignment and no apparent hardware osseous fracture. Dictated by: Kia Brar M.D. on 11/16/2022 at 14:22 Approved by: Kia Brar M.D. on 11/16/2022 at 14:22
--- NOTE | 2022-11-16 15:13 | PC.NURSE ---
Pt walked to bathroom with steady gait. Knee brace in place and pt reports comfort with brace.
== END 2022-11-16 15:23 | disposition home or self-care (01) ==
PROVIDERS: Emergency Provider Emergency Medicine; PCP Nurse Practitioner
DX: M24.452 Recurrent dislocation, left hip (principal); Z96.642 Presence of left artificial hip joint
CPT/HCPCS: 27265; 73502; 99152; 99284; 99285; 99291; 99292; J2704

== ENCOUNTER 2022-12-30 13:08 | Emergency (ER) | payer MEDICARE, OTHER, SELFPAY ==
[2022-05-16 11:35] VITALS: BMI 25.3
[2022-12-30] VITALS (18 sets, daily range): BP systolic 107–156; BP diastolic 56–74; PULSE 59–74; RESP 8–28; TEMP 36.1; O2SAT 95–100; BMI 25.0
--- NOTE | 2022-12-30 13:08 | DI.RAD.S_ITS ---
PROCEDURE: XR HIP W PEL IF DONE LT 2V INDICATIONS: dislocation TECHNIQUE: 2 views of the hip were acquired. COMPARISON: [facility], , XR HIP W PEL IF DONE LT 2V, 11/16/2022, 13:55. FINDINGS: Bones: Total left hip prosthesis present. There is posterior dislocation without evidence of fracture. Severe right hip and lower lumbar spine degenerative changes Soft tissues: No suspicious soft tissue calcifications or masses. IMPRESSION: Dislocated right total hip prosthesis Approved by: Alessandro Banks M.D. on 12/30/2022 at 13:00
--- NOTE | 2022-12-30 13:16 | ED_ITS ---
HPI - General Adult General Chief complaint: Extremity Injury, Lower Stated complaint: Dislocated Hip Time Seen by Provider: 12/30/22 13:10 History of Present Illness HPI narrative: 77-year-old male nonsmoker with history of hypertension, hyperlipidemia, prior left hip surgery and prior dislocations presents by [facility] for evaluation of left hip pain. He states that he was bending over to feed his cats when he felt sudden pain and an inability to weightbear. He states it feels similar to prior dislocations. He denies any direct trauma. He has no numbness, tingling or weakness. He is unable to move it secondary to a mechanical obstruction. EMS transported and gave morphine 4 mg EN route. Related Data Home Medications Medication Instructions Recorded Confirmed amlodipine 10 mg tablet 10 mg PO DAILY 05/09/22 05/16/22 atenolol 50 mg tablet 50 mg PO BEDTIME 05/09/22 05/16/22 atorvastatin 20 mg tablet 20 mg PO BEDTIME 05/09/22 05/16/22 cetirizine 10 mg tablet 10 mg PO DAILY 05/09/22 05/09/22 ferrous sulfate 325 mg (65 mg 325 mg PO DAILY 05/09/22 05/09/22 iron) tablet fluticasone propionate 50 1 spray intranasal BID 05/09/22 05/09/22 mcg/actuation nasal spray,suspension glipizide 5 mg tablet 2.5 mg PO BID 05/09/22 05/16/22 hydrochlorothiazide 25 mg tablet 25 mg PO DAILY 05/09/22 05/16/22 ibuprofen 200 mg tablet 800 mg PO BID 05/09/22 05/09/22 metformin 500 mg tablet,extended 1,000 mg PO BID 05/09/22 05/16/22 release 24 hr potassium chloride 20 mEq 20 meq PO DAILY 05/09/22 05/16/22 tablet,extended release terbinafine HCl 250 mg tablet 250 mg PO DAILY 05/09/22 05/09/22 Previous Rx's Medication Instructions Recorded acetaminophen 325 mg tablet 650 mg PO Q6HR PRN fever or pain 05/17/22 #240 tabs aspirin 81 mg tablet,delayed 81 mg PO BID #90 tabs 05/17/22 release oxycodone 5 mg tablet 5 mg PO Q4H PRN pain, severe #40 05/17/22 tabs Allergies Allergy/AdvReac Type Severity Reaction Status Date / Time No Known Drug Allergies Allergy Verified 11/16/22 12:59 Review of Systems Review of Systems Narrative: GENERAL: Denies chills, fatigue, malaise, fever, sweats. HEENT: Denies sinus pain, ear pain, sore throat, difficulty swallowing, dizziness. RESPIRATORY: Denies dyspnea, cough, wheezing, hemoptysis, sputum. CARDIOVASCULAR: Denies chest pain, palpitations, orthopnea, edema, GASTROINTESTINAL: Denies nausea, vomiting, abdominal pain, diarrhea, constipation, melena. : Denies dysuria, frequency, incontinence, hematuria, urinary retention. MUSCULOSKELETAL: See HPI SKIN: Denies rash, skin lesions, or other NEUROLOGIC: See HPI PSYCHIATRIC: No concerning psychosocial issues. 12 point review of systems is negative except for those stated above Patient History Medical History Diabetes (~1988) Hearing impaired HLD (hyperlipidemia) HTN (hypertension) HECTOR (obstructive sleep apnea) Osteoarthritis Seasonal allergies Sinus drainage Surgical History Hx of appendectomy (1971) Hx of cholecystectomy (2019) Hx of tonsillectomy Social History household members: spouse Smoking Status: Former smoker alcohol intake: former Smoking Status: Former smoker alcohol intake frequency: 0-2 drinks per day Substance Use Type: does not use Exam Narrative Exam Narrative: GENERAL: [77] year old patient appears stated age. Well-developed patient, in mild distress. HEAD: Atraumatic. Normocephalic. EYES: Pupils equal round and reactive. Extraocular motions intact. No scleral icterus. No injection or drainage. ENT: Nose without bleeding, purulent drainage. Throat without erythema, tonsillar hypertrophy or exudate. Airway patent. NECK: Trachea midline. Non tender CARDIOVASCULAR: Regular rate and rhythm without murmurs, gallops, or rubs. RESPIRATORY: Clear to auscultation. Breath sounds equal bilaterally. No wheezes, rales, or rhonchi. GASTROINTESTINAL: Abdomen soft, non-tender, nondistended. EXTREMITIES: Left hip pain with obvious deformity, shortening and internal rotation, consistent with dislocation. This is closed, isolated and neurovascularly intact BACK: Nontender without deformity or crepitance. No flank tenderness. NEURO: AOx3. SKIN: No rash or erythema of visible areas Initial Vital Signs Initial Vital Signs: Vital Signs Temperature 96.9 F L 12/30/22 13:15 Pulse Rate 69 12/30/22 13:15 Respiratory Rate 18 12/30/22 13:15 Blood Pressure 127/60 12/30/22 13:15 Pulse Oximetry 99 12/30/22 13:15 Oxygen Delivery Method Room Air 12/30/22 13:15 Procedures Orthopedic Joint Reduction Joint #1: Time Out Performed: Yes Side: left Joint Reduction Location: hip Analgesia: procedural sedation Post-reduction neuro exam: intact Post-reduction vascular: intact Post Reduction X-Ray Obtained: Yes Post Reduction X-Ray Results: reduced Splint Applied: Yes Patient Tolerated Procedure: Well Orthopedic Splinting/Casting Injury #1: Side: left Lower Extremity Injury Location: knee Lower Extremity Immobilizer: knee immobilizer Post splinting neuro exam: intact Post splinting vascular exam: intact Placed by: Provider Procedural Sedation Consent signed: Yes Time out performed: Yes Indication: fracture/dislocation reduction IV Propofol dose (mg): 130 Intraservice time/total sedation time (min): 14 ED Sedation Level: Moderate (Concious) Patient Tolerated Procedure: Well Complications: hypoxia Interventions: Airway repositioned and Oxygen applied Course Orders Ordered: ED Orders 12/30/22 13:08 XR hip w pel if done LT 2V Stat 12/30/22 13:47 XR hip LT 1V Stat Sodium Chloride (Normal Saline 0.9%) 1,000 mls @ 1,000 mls/hr IV BOLUS ONE Stop: 12/30/22 15:13 Last Infusion: 12/30/22 14:18 Dose: 0 mls/hr Documented By: Admin: 12/30/22 13:50 Dose: 1,000 mls/hr Documented By: JOSE Discontinued Medications Propofol (Propofol 200 Mg/20 Ml Vial) 200 mg IV NOW ONE Stop: 12/30/22 13:09 Last Admin: 12/30/22 13:43 Dose: 130 mg Documented By: JOSE Vital Signs Vital signs: Vital Signs - 8 hr 12/30/22 13:15 12/30/22 13:29 12/30/22 13:30 Temperature 96.9 F L Pulse Rate 69 70 70 Respiratory Rate 18 16 20 Blood Pressure 127/60 Pulse Oximetry 99 100 100 Oxygen Delivery Method Room Air Oxygen Flow Rate 12/30/22 13:31 12/30/22 13:31 12/30/22 13:37 Temperature Pulse Rate 71 Respiratory Rate 15 Blood Pressure 156/72 H 150/74 H Pulse Oximetry 100 Oxygen Delivery Method Room Air Oxygen Flow Rate 12/30/22 13:37 12/30/22 13:40 12/30/22 13:40 Temperature Pulse Rate 72 74 Respiratory Rate 19 14 Blood Pressure 148/66 H Pulse Oximetry 100 99 Oxygen Delivery Method Room Air Oxygen Flow Rate 12/30/22 13:45 12/30/22 13:45 12/30/22 14:00 Temperature Pulse Rate 70 64 Respiratory Rate 8 L 12 Blood Pressure 119/57 L 120/58 L Pulse Oximetry 99 97 Oxygen Delivery Method Nasal Cannula Oxygen Flow Rate 6 12/30/22 13:49 12/30/22 13:49 12/30/22 13:50 Temperature Pulse Rate 68 66 Respiratory Rate 16 21 Blood Pressure 116/56 L Pulse Oximetry 96 97 Oxygen Delivery Method Ambu Bag Oxygen Flow Rate 15 12/30/22 13:50 12/30/22 13:55 12/30/22 13:55 Temperature Pulse Rate 66 Respiratory Rate 22 Blood Pressure 107/56 L 117/58 L Pulse Oximetry 97 Oxygen Delivery Method Nasal Cannula Oxygen Flow Rate 4 12/30/22 14:00 12/30/22 14:00 12/30/22 13:25 Temperature Pulse Rate 66 69 Respiratory Rate 11 L 14 Blood Pressure 120/58 L Pulse Oximetry 97 Oxygen Delivery Method Nasal Cannula Oxygen Flow Rate 2 12/30/22 14:05 12/30/22 14:10 12/30/22 14:05 Temperature Pulse Rate 59 L 65 Respiratory Rate 20 20 Blood Pressure 128/60 139/61 Pulse Oximetry 99 97 97 Oxygen Delivery Method Nasal Cannula Oxygen Flow Rate 2 12/30/22 14:05 12/30/22 14:10 12/30/22 14:10 Temperature Pulse Rate 72 Respiratory Rate Blood Pressure 128/60 139/61 Pulse Oximetry 97 Oxygen Delivery Method Room Air Oxygen Flow Rate 12/30/22 14:15 12/30/22 14:15 12/30/22 14:15 Temperature Pulse Rate 61 69 Respiratory Rate 26 H 26 H Blood Pressure 145/63 H 145/63 H Pulse Oximetry 96 97 Oxygen Delivery Method Room Air Oxygen Flow Rate 12/30/22 14:15 12/30/22 14:20 12/30/22 14:20 Temperature Pulse Rate 74 71 Respiratory Rate 27 H 28 H Blood Pressure 138/72 138/72 Pulse Oximetry 96 96 Oxygen Delivery Method Room Air Oxygen Flow Rate Medical Decision Making Lab Data Labs: Point of Care Testing Glucose POC 146 Point of care testing: Point of Care Testing Glucose POC 146 MDM Narrative Medical decision making narrative: [77] year old patient presents with left hip pain and obvious deformity Multiple etiologies for patient's symptoms considered including, but not limited to: [Fracture versus dislocation versus other] Prior Charts reviewed in our EMR Primary Historian: patient Imaging reviewed: Preprocedure imaging demonstrates dislocation, postreduction films confirm reduction Patient's symptoms improved over duration of stay with above-stated therapies. Findings and discharge diagnosis discussed with patient/family followed by verbalization of understanding Return precautions discussed with patient/family whom verbalize understanding of diagnosis and plan Discharge Plan Departure Patient Disposition: Home Clinical Impression: Dislocation, hip Instructions: DI for Hip Dislocation -- Adult Activity Restrictions/Additional Instructions: Instructions: Hip Dislocation Activity Restrictions/Additional Instructions: Please follow-up with orthopedic surgery, call to set up an appointment in the next week or so. You are going to want to avoid movements such as bending at the hip with flexion of the knee and/or rotation at the same time. Continue your knee immobilizer until you follow-up with orthopedic surgery. This is to prevent you from bending at the knee which will make you less likely to have recurrent dislocation. If the doctor gave you a sedative: For 24 hours, don't do anything that requires attention to detail. This includes going to work, making important decisions, or signing any legal documents. It takes time for the medicine's effects to completely wear off. For your safety, do not drive or operate any machinery that could be dangerous. Wait until the medicine wears off and you can think clearly and react easily. Your doctor will give you safety precautions to keep your hip centred in its socket during the healing period. Be sure to follow these precautions. Keep your knees and toes pointed forward when you sit in a chair, walk, or stand. Do not sit with your legs crossed. Do not bend at the waist more than 90?. Be careful when leaning or when moving in bed to keep your legs as straight ahead as possible. If you have a hip brace, wear it as directed. Do not remove it unless your doctor says you can. If you remove the brace to shower, be extremely careful. Follow hip precautions to limit hip movement. Rest your hip as much as you can. You will need to change your activities to avoid movements that irritate the hip. If your hip is swollen, put ice or a cold pack on it for 10 to 20 minutes at a time. Try to do this every 1 to 2 hours for the next 3 days (when you are awake) or until the swelling goes down. Put a thin cloth between the ice and your skin. Prescriptions: No Action atorvastatin 20 mg Tablet 20 mg PO BEDTIME cetirizine 10 mg Tablet 10 mg PO DAILY amlodipine 10 mg Tablet 10 mg PO DAILY ferrous sulfate 325 mg (65 mg iron) Tablet 325 mg PO DAILY ibuprofen 200 mg Tablet 800 mg PO BID hydrochlorothiazide 25 mg Tablet 25 mg PO DAILY fluticasone propionate 50 mcg/actuation [place],Suspension 1 spray INTRANASAL BID Rx Instructions: administer into each nostril metformin 500 mg Tablet Extended Release 24 Hr 1,000 mg PO BID atenolol 50 mg Tablet 50 mg PO BEDTIME glipizide 5 mg Tablet 2.5 mg PO BID potassium chloride 20 mEq Tablet Extended Release 20 meq PO DAILY terbinafine HCl 250 mg Tablet 250 mg PO DAILY acetaminophen 325 mg Tablet 650 mg PO Q6HR PRN (Reason: fever or pain) Qty: 240 0RF aspirin 81 mg Tablet,Delayed Release (Dr/Ec) 81 mg PO BID Qty: 90 0RF oxycodone 5 mg Tablet 5 mg PO Q4H PRN (Reason: pain, severe) Qty: 40 0RF Referrals: Jo Ann Velez ARNP [Primary Care Provider] - Stand Alone Forms: Patient Portal/API
[2022-12-30] MEDS: propofoL 200 MG/20 ML VIAL IV (13:43)
--- NOTE | 2022-12-30 13:47 | DI.RAD.S_ITS ---
PROCEDURE: XR HIP LT 1V INDICATIONS: post reduction TECHNIQUE: 1 views of the hip were acquired. COMPARISON: [facility], CR, XR HIP W PEL IF DONE LT 2V, 12/30/2022, 13:12. FINDINGS: Bones: No fractures or dislocations. No suspicious bony lesions. The visualized pelvic ring appears intact. Total left hip arthroplasty has been reduced Soft tissues: No suspicious soft tissue calcifications or masses. Atherosclerotic vascular calcification noted IMPRESSION: Total left hip arthroplasty now shows appropriate articulation without hardware failure or fracture. Approved by: Alessandro Banks M.D. on 12/30/2022 at 13:38
[2022-12-30] MEDS: SODIUM CHLORIDE 0.9% 1,000 ML 1000 ML IV (13:50)
--- NOTE | 2022-12-30 14:04 | RT ---
At bedside for PRS hip, bag mask unit with suction on and functional at [facility]. Pt bagged with 100% fio2 for apnea during procedure. Pt elaine well, sao2 97% with jaw thrust applied. Pt arousable post prs, awake and on room air with sao2 96%. Etco2 30 and no distress noted. Released by Lalitha Landry.
== END 2022-12-30 14:52 | disposition home or self-care (01) ==
PROVIDERS: Emergency Provider Emergency Medicine; PCP Nurse Practitioner
DX: S73.005A Unspecified dislocation of left hip, initial encounter (principal)
CPT/HCPCS: 27265; 73501; 73502; 82962; 99152; 99284; 99285; J2704

== ENCOUNTER 2023-02-28 06:19 | Emergency (ER) | payer MEDICARE, OTHER, SELFPAY ==
[2022-05-16 11:35] VITALS: BMI 25.3
[2023-02-28] VITALS (24 sets, daily range): BP systolic 113–172; BP diastolic 55–84; PULSE 65–84; RESP 12–28; TEMP 36; O2SAT 92–99; BMI 26.8
--- NOTE | 2023-02-28 06:31 | DI.RAD.S_ITS ---
PROCEDURE: XR HIP W PEL IF DONE LT 2V INDICATIONS: possible dislocation TECHNIQUE: AP pelvis with lateral view of the left hip. COMPARISON: [facility] [place], CR, XR PELVIS WITH LATERAL HIP LEFT, 12/27/2022, 13:22. [facility], CR, XR HIP W PEL IF DONE LT 2V, 12/30/2022, 13:12. [facility], CR, XR HIP W PEL IF DONE LT 2V, 11/16/2022, 13:55. [facility], CR, XR HIP LT 1V, 12/30/2022, 13:44. FINDINGS: Bones: Postsurgical changes again seen from left total hip arthroplasty. Femoral head component is seen superimposed on the acetabular component on frontal view with posterior positioning of the femoral head component on lateral view. Findings are consistent with posterior dislocation. Severe degenerative changes in the right hip. Degenerative changes also seen in the included lumbar spine. No acute osseous fracture is seen. Soft tissues: The visualized bowel gas pattern is normal. No suspicious soft tissue calcifications. IMPRESSION: Posterior dislocation of the left hip prosthesis. Approved by: Raúl Martin M.D. on 02/28/2023 at 9:15
--- NOTE | 2023-02-28 08:02 | ED.LOWEXIN ---
HPI - Extremity Injury (Lower) General Chief Complaint: Extremity Injury, Lower Stated Complaint: hip dislocation Time Seen by Provider: 02/28/23 07:52 Mode of arrival: EMS History of Present Illness HPI Narrative: Patient brought here by ambulance from home for possible dislocation of the left hip. This would be his 4th dislocation. Had total hip replacement last year. Patient states he was in the shower this morning and he may have turned wrong and had his left knee directed inward. Denies any other injury. NPO since 9:30 p.m. last night. Related Data Home Medications Medication Instructions Recorded Confirmed amlodipine 10 mg tablet 10 mg PO DAILY 05/09/22 05/16/22 atenolol 50 mg tablet 50 mg PO BEDTIME 05/09/22 05/16/22 atorvastatin 20 mg tablet 20 mg PO BEDTIME 05/09/22 05/16/22 cetirizine 10 mg tablet 10 mg PO DAILY 05/09/22 05/09/22 ferrous sulfate 325 mg (65 mg 325 mg PO DAILY 05/09/22 05/09/22 iron) tablet fluticasone propionate 50 1 spray intranasal BID 05/09/22 05/09/22 mcg/actuation nasal spray,suspension glipizide 5 mg tablet 2.5 mg PO BID 05/09/22 05/16/22 hydrochlorothiazide 25 mg tablet 25 mg PO DAILY 05/09/22 05/16/22 ibuprofen 200 mg tablet 800 mg PO BID 05/09/22 05/09/22 metformin 500 mg tablet,extended 1,000 mg PO BID 05/09/22 05/16/22 release 24 hr potassium chloride 20 mEq 20 meq PO DAILY 05/09/22 05/16/22 tablet,extended release terbinafine HCl 250 mg tablet 250 mg PO DAILY 05/09/22 05/09/22 Previous Rx's Medication Instructions Recorded acetaminophen 325 mg tablet 650 mg PO Q6HR PRN fever or pain 05/17/22 #240 tabs aspirin 81 mg tablet,delayed 81 mg PO BID #90 tabs 05/17/22 release oxycodone 5 mg tablet 5 mg PO Q4H PRN pain, severe #40 05/17/22 tabs Allergies Allergy/AdvReac Type Severity Reaction Status Date / Time No Known Drug Allergies Allergy Verified 11/16/22 12:59 Review of Systems Review of Systems Narrative: GENERAL: negative chills, fatigue, malaise, fever, sweats. HEENT: negative sinus pain, ear pain, sore throat RESPIRATORY: negative dyspnea, cough CARDIOVASCULAR: negative chest pain, palpitations GASTROINTESTINAL: negative nausea, vomiting, abdominal pain : negative dysuria, frequency, hematuria MUSCULOSKELETAL: negative muscle positive bony pain SKIN: negative rash, skin lesions NEUROLOGIC: negative weakness, numbness ROS Unobtainable: All systems reviewed & are unremarkable except as noted in HPI and below Patient History Medical History Diabetes (~1987) Hearing impaired HLD (hyperlipidemia) HTN (hypertension) HECTOR (obstructive sleep apnea) Osteoarthritis Seasonal allergies Sinus drainage Surgical History Hx of appendectomy (1971) Hx of cholecystectomy (2018) Hx of tonsillectomy Social History household members: spouse Smoking Status: Former smoker alcohol intake: former Smoking Status: Former smoker alcohol intake frequency: 0-2 drinks per day Substance Use Type: does not use Exam Narrative Exam Narrative: GENERAL: in no distress, not toxic not dyspneic HEAD: Normocephalic. EYES: Pupils equal round ENT: Mucous membranes moist. NECK: Trachea midline. CARDIOVASCULAR: Regular rate and rhythm RESPIRATORY: Clear to auscultation. Breath sounds equal bilaterally. No wheezes, rales, or rhonchi. GASTROINTESTINAL: Abdomen soft, non-tender EXTREMITIES: Examination left lower extremity. Foot is warm soft and pink with strong pedal pulse light touch intact to foot and toes. Nontender ankle and knee. Limited range of motion of the hip due to pain. Leg is placed on pillow in a flexed position. NEURO: AOx4. SKIN: Warm and dry PSYCH: Not anxious, is cooperative Initial Vital Signs Initial Vital Signs: Vital Signs Temperature 96.8 F L 02/28/23 06:26 Pulse Rate 65 02/28/23 06:26 Respiratory Rate 18 02/28/23 06:26 Blood Pressure 156/68 H 02/28/23 06:26 Pulse Oximetry 96 02/28/23 06:26 Oxygen Delivery Method Room Air 02/28/23 06:26 Procedures Orthopedic Joint Reduction Joint #1: Time of procedure: 11:40 Time Out Performed: Yes Side: left Joint Reduction Location: hip Analgesia: procedural sedation Technique used: traction/counter-traction Post-reduction neuro exam: intact Post-reduction vascular: intact Post Reduction X-Ray Obtained: Yes Post Reduction X-Ray Results: reduced Patient Tolerated Procedure: Well and No complications Additional Comments: Left leg and foot warm soft and pink strong pedal pulse light touch intact to foot and toes after successful reduction of the left hip Course Orders Ordered: Discontinued Medications Hydromorphone HCl (Hydromorphone 1 Mg Inj) 1 mg IV NOW ONE Stop: 02/28/23 08:33 Last Admin: 02/28/23 08:43 Dose: 1 mg Documented By: Lidocaine HCl (Lidocaine 2% Inj Mdv 50ml) 20 mg INJ NOW ONE Stop: 02/28/23 11:41 Last Admin: 02/28/23 12:00 Dose: 20 mg Documented By: Ondansetron HCl (Ondansetron 4 Mg/2 Ml Inj) 4 mg IV NOW ONE Stop: 02/28/23 08:33 Last Admin: 02/28/23 08:43 Dose: 4 mg Documented By: Prednisone (Prednisone 20 Mg Tablet) 40 mg PO NOW ONE Stop: 02/28/23 08:02 Propofol (Propofol 200 Mg/20 Ml Vial) 100 mg IV NOW ONE Stop: 02/28/23 11:41 Last Admin: 02/28/23 11:41 Dose: 100 mg Documented By: Vital Signs Vital signs: Vital Signs - 8 hr 02/28/23 06:26 02/28/23 09:11 02/28/23 09:30 Temperature 96.8 F L Pulse Rate 65 75 Respiratory Rate 18 Blood Pressure 156/68 H 123/60 Pulse Oximetry 96 94 Oxygen Delivery Method Room Air 02/28/23 09:30 02/28/23 10:00 02/28/23 10:00 Temperature Pulse Rate 79 76 Respiratory Rate Blood Pressure 135/63 Pulse Oximetry 93 92 Oxygen Delivery Method 02/28/23 10:26 02/28/23 10:26 02/28/23 10:30 Temperature Pulse Rate 76 74 Respiratory Rate Blood Pressure 140/66 Pulse Oximetry 95 96 Oxygen Delivery Method 02/28/23 10:31 02/28/23 10:31 02/28/23 11:00 Temperature Pulse Rate 76 77 Respiratory Rate Blood Pressure 142/68 H Pulse Oximetry 93 93 Oxygen Delivery Method 02/28/23 11:18 02/28/23 11:18 02/28/23 11:30 Temperature Pulse Rate 80 Respiratory Rate Blood Pressure 168/76 H 162/75 H Pulse Oximetry 95 Oxygen Delivery Method 02/28/23 11:30 02/28/23 11:38 02/28/23 11:38 Temperature Pulse Rate 84 82 Respiratory Rate Blood Pressure 155/75 H Pulse Oximetry 96 97 Oxygen Delivery Method Room Air 02/28/23 11:40 02/28/23 11:40 02/28/23 11:46 Temperature Pulse Rate 82 Respiratory Rate 24 Blood Pressure 161/84 H 132/55 L Pulse Oximetry 97 Oxygen Delivery Method 02/28/23 11:46 02/28/23 11:50 02/28/23 11:50 Temperature Pulse Rate 79 79 Respiratory Rate 15 14 Blood Pressure 132/57 L Pulse Oximetry 96 95 Oxygen Delivery Method 02/28/23 11:55 02/28/23 11:55 02/28/23 11:51 Temperature Pulse Rate 78 79 Respiratory Rate 15 14 Blood Pressure 113/56 L 132/57 L Pulse Oximetry 96 95 Oxygen Delivery Method 02/28/23 11:46 02/28/23 11:56 02/28/23 12:01 Temperature Pulse Rate 79 78 80 Respiratory Rate 14 16 16 Blood Pressure 132/55 L 113/56 L 172/71 H Pulse Oximetry 97 96 99 Oxygen Delivery Method 02/28/23 12:06 02/28/23 12:11 02/28/23 12:00 Temperature Pulse Rate 78 79 80 Respiratory Rate 16 16 28 H Blood Pressure 172/74 H 122/60 Pulse Oximetry 98 98 99 Oxygen Delivery Method 02/28/23 12:01 02/28/23 12:01 Temperature Pulse Rate 80 Respiratory Rate 28 H Blood Pressure 172/71 H Pulse Oximetry 99 Oxygen Delivery Method MDM - Extremity Injury (Lower) Imaging Data Extremity x-ray #1: Radiologist's Impression: [address] [address] XRay Report Signed Patient: Joshua Emanuel MR#: [id number] : 1945 Acct:[id number] Age/Sex: 77 / M Date of Service: 02/28/23 Loc: ED Accession Number: [id number] ?? Procedure: XR hip w pel if done LT 2V Ordering Provider: Samantha Tolliver D.O. PROCEDURE:? XR HIP W PEL IF DONE LT 2V ? INDICATIONS:? possible dislocation ? TECHNIQUE:? AP pelvis with lateral view of the left hip. ? COMPARISON:? [facility] [place], CR, XR PELVIS WITH LATERAL HIP LEFT, 12/27/2022, 13:22.? [facility], CR, XR HIP W PEL IF DONE LT 2V, 12/30/2022, 13:12.? [facility], CR, XR HIP W PEL IF DONE LT 2V, 11/16/2022, 13:55.? [facility], CR, XR HIP LT 1V, 12/30/2022, 13:44. ? FINDINGS:? ? Bones:? Postsurgical changes again seen from left total hip arthroplasty.? Femoral head component is seen superimposed on the acetabular component on frontal view with posterior positioning of the femoral head component on lateral view.? Findings are consistent with posterior dislocation.? Severe degenerative changes in the right hip.? Degenerative changes also seen in the included lumbar spine.? No acute osseous fracture is seen. ? Soft tissues:? The visualized bowel gas pattern is normal.? No suspicious soft tissue calcifications.? ? IMPRESSION:? Posterior dislocation of the left hip prosthesis. ? Approved by: Raúl Martin M.D. on 02/28/2023 at 9:15? Extremity x-ray #2: Radiologist's Impression: [place] [address] CT Scan Report Signed Patient: Joshua Emanuel MR#: [id number] : 1945 Acct:[id number] Age/Sex: 77 / M Date of Service: 02/28/23 Loc: ED Accession Number: [id number] ?? Procedure: CT LE LT wo con Ordering Provider: Gabriel Garcia MD PROCEDURE:? CT LE LT W CON ? INDICATIONS:? Left hip pain ? TECHNIQUE:? Noncontrast 3 mm axial sections acquired through the bony pelvis.? Additional 3 mm axial sections acquired through the symptomatic hip joint, with coronal and sagittal reformats. ? ? COMPARISON:? [facility], CR, XR HIP W PEL IF DONE LT 2V, 02/28/2023, 6:45. ? FINDINGS:? Image quality:? Excellent.? ? Bones:? Total left hip arthroplasty, posteriorly dislocated.? Ingesting leak, the dislocation is posterior, and not posterior lateral period No identifiable fracture. ? Soft tissues:? Unremarkable ? ? IMPRESSION:? Posterior dislocation of total left hip arthroplasty.? The dislocation is posterior, and not posterolateral. ? Dictated by: Celio Bergman M.D. on 02/28/2023 at 9:19 ? ? Approved by: Celio Bergman M.D. on 02/28/2023 at 9:22 ? Extremity x-ray #3: Radiologist's Impression: [address] [address] XRay Report Signed Patient: Joshua Emanuel MR#: [id number] : 1945 Acct:[id number] Age/Sex: 77 / M Date of Service: 02/28/23 Loc: ED Accession Number: [id number] ?? Procedure: XR hip w pel if done LT 2V Ordering Provider: Gabriel Garcia MD PROCEDURE:? XR HIP W PEL IF DONE LT 2V ? INDICATIONS:? post reduction ? TECHNIQUE:? AP pelvis with lateral view of the left hip. ? COMPARISON:? [facility], CR, XR HIP W PEL IF DONE LT 2V, 02/28/2023, 6:45.? [facility], CR, XR HIP W PEL IF DONE LT 2V, 12/30/2022, 13:12. ? FINDINGS:? ? Bones:? Left total hip arthroplasty again seen.? There is moravian of normal alignment between the metallic acetabular and femoral head components.? Severe degenerative changes in the right hip and lumbar spine. ? Soft tissues:? The visualized bowel gas pattern is normal.? No suspicious soft tissue calcifications.? ? IMPRESSION:? Successful reduction of the left hip arthroplasty. ? Approved by: Raúl Martin M.D. on 02/28/2023 at 12:26? MDM Narrative Medical decision making narrative: Patient brought here by ambulance from home for possible dislocation of the left hip. This would be his 4th dislocation. Had total hip replacement last year. Patient states he was in the shower this morning and he may have turned wrong and had his left knee directed inward. Denies any other injury. NPO since 9:30 p.m. last night. After history and exam x-ray of left hip, IV access, consent for procedural sedation and closed reduction, will likely need anesthesia to assist for procedural sedation as patient has sleep apnea. MDM CC: Left hip pain Complicating co-morbidities: Multiple left hip dislocation Data collected from: Patient Medical records reviewed: Visits here December for hip dislocations Differential considered: Includes but not limited to hip dislocation/fracture/strain Exam documented above, pertinent findings include: Limited range of motion of the hip Imaging studies independently reviewed: X-ray left hip CT scan left hip, posterior dislocated, postreduction x-ray of hip shows relocated hip Consultations: 12:[address] Bartholomew, patient's orthopedic surgeon, patient may be discharged home. She will follow up with patient. Treatments: Reduction of hip. Re-evaluations: 1:00 p.m.. Reviewed results with patient and my discussion with Dr. Bartholomew. Patient and desire discharge home. Feeling much better. Patient is awake alert oriented x4. No respiratory complaints. Discussion: Appropriate for discharge home. Patient is at baseline at time of discharge after procedural sedation. Sedation was provided by anesthesia, [employer], [place]. Return precautions reviewed with patient. is driving. Patient desires discharge home Diagnosis: Left hip dislocation Discharge Plan Departure Patient Disposition: Home Clinical Impression: Dislocation of hip, left, closed Instructions: DI for Hip Dislocation -- Adult, DI for Moderate Sedation Activity Restrictions/Additional Instructions: Dr. Bartholomew is aware you were here today for dislocated hip. Please call the office for office appointment re-evaluation. No driving operating machinery today. Return if worse if any questions or concerns. Please do continue instructions to prevent hip this location as she has gone over with you in the past. Prescriptions: No Action atorvastatin 20 mg Tablet 20 mg PO BEDTIME cetirizine 10 mg Tablet 10 mg PO DAILY amlodipine 10 mg Tablet 10 mg PO DAILY ferrous sulfate 325 mg (65 mg iron) Tablet 325 mg PO DAILY ibuprofen 200 mg Tablet 800 mg PO BID hydrochlorothiazide 25 mg Tablet 25 mg PO DAILY fluticasone propionate 50 mcg/actuation [place],Suspension 1 spray INTRANASAL BID Rx Instructions: administer into each nostril metformin 500 mg Tablet Extended Release 24 Hr 1,000 mg PO BID atenolol 50 mg Tablet 50 mg PO BEDTIME glipizide 5 mg Tablet 2.5 mg PO BID potassium chloride 20 mEq Tablet Extended Release 20 meq PO DAILY terbinafine HCl 250 mg Tablet 250 mg PO DAILY acetaminophen 325 mg Tablet 650 mg PO Q6HR PRN (Reason: fever or pain) Qty: 240 0RF aspirin 81 mg Tablet,Delayed Release (Dr/Ec) 81 mg PO BID Qty: 90 0RF oxycodone 5 mg Tablet 5 mg PO Q4H PRN (Reason: pain, severe) Qty: 40 0RF Referrals: Jo Ann Velez ARNP [Primary Care Provider] - Stand Alone Forms: Patient Portal/API
--- NOTE | 2023-02-28 08:30 | DI.CT.S_ITS ---
PROCEDURE: CT LE LT W CON INDICATIONS: Left hip pain TECHNIQUE: Noncontrast 3 mm axial sections acquired through the bony pelvis. Additional 3 mm axial sections acquired through the symptomatic hip joint, with coronal and sagittal reformats. COMPARISON: [facility], CR, XR HIP W PEL IF DONE LT 2V, 02/28/2023, 6:45. FINDINGS: Image quality: Excellent. Bones: Total left hip arthroplasty, posteriorly dislocated. Ingesting leak, the dislocation is posterior, and not posterior lateral period No identifiable fracture. Soft tissues: Unremarkable IMPRESSION: Posterior dislocation of total left hip arthroplasty. The dislocation is posterior, and not posterolateral. Dictated by: Celio Bergman M.D. on 02/28/2023 at 9:19 Approved by: Celio Bergman M.D. on 02/28/2023 at 9:22
[2023-02-28] MEDS: ONDANSETRON 4 MG/2 ML INJ IV (08:43)
[2023-02-28] MEDS: HYDROMORPHONE 1 MG INJ IV (08:43)
[2023-02-28] MEDS: propofoL 200 MG/20 ML VIAL 100 MG IV (11:41)
--- NOTE | 2023-02-28 11:46 | DI.RAD.S_ITS ---
PROCEDURE: XR HIP W PEL IF DONE LT 2V INDICATIONS: post reduction TECHNIQUE: AP pelvis with lateral view of the left hip. COMPARISON: [facility], CR, XR HIP W PEL IF DONE LT 2V, 02/28/2023, 6:45. [facility], CR, XR HIP W PEL IF DONE LT 2V, 12/30/2022, 13:12. FINDINGS: Bones: Left total hip arthroplasty again seen. There is christian of normal alignment between the metallic acetabular and femoral head components. Severe degenerative changes in the right hip and lumbar spine. Soft tissues: The visualized bowel gas pattern is normal. No suspicious soft tissue calcifications. IMPRESSION: Successful reduction of the left hip arthroplasty. Approved by: Raúl Martin M.D. on 02/28/2023 at 12:26
[2023-02-28] MEDS: LIDOCAINE 2% INJ MDV 50ML 20 MG INJ (12:00)
== END 2023-02-28 13:19 | disposition home or self-care (01) ==
PROVIDERS: Emergency Provider Emergency Medicine; PCP Nurse Practitioner
DX: S73.005A Unspecified dislocation of left hip, initial encounter (principal)
CPT/HCPCS: 23650; 73502; 73700; 96374; 96375; 99284; 99285; J1170; J2405; J2704

== ENCOUNTER → 2023-03-16 07:51 | Outpatient (CLI) | payer MEDICARE, OTHER, SELFPAY ==
[2022-05-16 11:35] VITALS: BMI 25.3
[2023-03-16 08:35] LABS: Add Manual Diff / Slide Review NO; Basophils Absolute Auto 0 /uL (0-100); Eosinophils Absolute Auto 100 /uL (0-450); Eosinophils Percent Auto 2.4 % (2-4); Hematocrit 38.4 % (41-53); Hemoglobin 13.5 g/dL (13.5-17.5); Lymphocytes Absolute Auto 1000 /uL (1100-4500); Lymphocytes Percent Auto 22.1 % (25-40); Mean Corpuscular HGB Conc 35.1 % (30-36); Mean Corpuscular Hemoglobin 32.9 PG (26-34); Mean Corpuscular Volume 93.7 fL (80-100); Monocytes Absolute Auto 400 /uL (0-900); Monocytes Percent Auto 9.8 % (3-14); Neutrophils Absolute Auto 2800 /uL (1500-7000); Neutrophils Percent Auto 64.7 % (50-75); Platelet Count 223 X10^3/uL (150-400); Red Cell Distribution Width 12.7 % (11.6-14.8); White Blood Cell Count 4.4 X10^3/uL (4.5-11.0)
[2023-03-16 08:39] LABS: Hemoglobin A1C% w Est Avg Glu 6.2 % (4.0-6.0)
[2023-03-16 08:58] LABS: BUN Creatinine Ratio 19.1 (6-22); Blood Urea Nitrogen 22 mg/dL (9-20); Calcium 9.3 mg/dL (8.4-10.2); Carbon Dioxide 29 mmol/L (22-32); Chloride 94 mmol/L (98-107); Estimated Glomerular Filt Rate > 60 mL/min (>60); Glucose 114 mg/dL (80-110); HEMOLYSIS < 15 (0-50); Sodium 131 mmol/L (137-145)
[2023-03-16 09:41] LABS: Appearance Urine UA CLEAR; Bilirubin Urine UA NEGATIVE (NEGATIVE); Color Urine UA YELLOW; Glucose Urine UA NEGATIVE (Negative); Ketones Urine UA NEGATIVE (NEGATIVE); Leukocyte Esterase Urine UA NEGATIVE (NEGATIVE); Nitrite Urine UA NEGATIVE (Negative); Occult Blood Urine UA NEGATIVE (Negative); Protein Urine UA NEGATIVE (Negative); Urobilinogen Urine UA 0.2 E.U./dL (0.2)
[2023-03-16 09:52] LABS: Bacteria Urine None Seen; RBC Urine None Seen (0-5/HPF); Squamous Epithelial Cell Urine None Seen (0-5/HPF); WBC Urine None Seen (0-5/HPF)
[2023-03-16 09:53] LABS: Culture Indicated Urine Cult Not Indicated
== END ==
PROVIDERS: PCP Nurse Practitioner; Referring Provider Orthopaedic Surgery; Visit Provider Orthopaedic Surgery
DX: Z01.818 Encounter for other preprocedural examination (principal); R73.9 Hyperglycemia, unspecified; Z01.812 Encounter for preprocedural laboratory examination; N39.0 Urinary tract infection, site not specified
CPT/HCPCS: 36415; 80048; 81001; 83036; 85025; 93005

== ENCOUNTER 2023-03-17 11:05 | Emergency (ER) | payer MEDICARE, OTHER, SELFPAY ==
[2022-05-16 11:35] VITALS: BMI 25.3
[2023-03-17] VITALS (15 sets, daily range): BP systolic 105–169; BP diastolic 58–78; PULSE 66–77; RESP 11–26; TEMP 37.1; O2SAT 93–99; BMI 26.8
--- NOTE | 2023-03-17 11:12 | DI.RAD.S_ITS ---
PROCEDURE: XR HIP W PEL IF DONE LT 2V INDICATIONS: hip pain, hx dislocation TECHNIQUE: AP pelvis with lateral view(s) of the left hip(s). COMPARISON: [facility], CR, XR HIP W PEL IF DONE LT 2V, 02/28/2023, 11:44. [facility], CR, XR HIP W PEL IF DONE LT 2V, 02/28/2023, 6:45. FINDINGS: Bones: Left total hip arthroplasty. The femoral component is dislocated posteriorly. redemonstration of severe osteoarthritic changes of the right hip. Soft tissues: The visualized bowel gas pattern is normal. No suspicious soft tissue calcifications. IMPRESSION: Dislocated left total hip arthroplasty. Severe osteoarthritic changes of the right hip. Dictated by: Latrell Grande M.D. on 03/17/2023 at 12:18 Approved by: Latrell Grande M.D. on 03/17/2023 at 12:19
--- NOTE | 2023-03-17 11:13 | ED_ITS ---
HPI - General Adult General Chief complaint: Extremity Injury, Lower Stated complaint: L Hip dislocation Time Seen by Provider: 03/17/23 11:07 History of Present Illness HPI narrative: 77-year-old male nonsmoker with history of hypertension, hyperlipidemia, prior left hip surgery and prior dislocations presents by [facility] for evaluation of left hip pain. He states that he was out gardening and probably bending forward when he felt severe pain in his left hip and is unable to move it secondary not only to pain but also what he perceives as a mechanical obstruction. He had recently seen local orthopedist and there is discussion about a surgical revision in his future. He denies any numbness or tingling. He denies dizziness, weakness or lightheadedness. Denies any chest pain or shortness of breath. When remaining still he does not require any pain control and therefore EMS did not give him medications in route Related Data Home Medications Medication Instructions Recorded Confirmed amlodipine 10 mg tablet 10 mg PO DAILY 05/09/22 05/16/22 atenolol 50 mg tablet 50 mg PO BEDTIME 05/09/22 05/16/22 atorvastatin 20 mg tablet 20 mg PO BEDTIME 05/09/22 05/16/22 cetirizine 10 mg tablet 10 mg PO DAILY 05/09/22 05/09/22 ferrous sulfate 325 mg (65 mg 325 mg PO DAILY 05/09/22 05/09/22 iron) tablet fluticasone propionate 50 1 spray intranasal BID 05/09/22 05/09/22 mcg/actuation nasal spray,suspension glipizide 5 mg tablet 2.5 mg PO BID 05/09/22 05/16/22 hydrochlorothiazide 25 mg tablet 25 mg PO DAILY 05/09/22 05/16/22 ibuprofen 200 mg tablet 800 mg PO BID 05/09/22 05/09/22 metformin 500 mg tablet,extended 1,000 mg PO BID 05/09/22 05/16/22 release 24 hr potassium chloride 20 mEq 20 meq PO DAILY 05/09/22 05/16/22 tablet,extended release terbinafine HCl 250 mg tablet 250 mg PO DAILY 05/09/22 05/09/22 Previous Rx's Medication Instructions Recorded acetaminophen 325 mg tablet 650 mg PO Q6HR PRN fever or pain 05/17/22 #240 tabs aspirin 81 mg tablet,delayed 81 mg PO BID #90 tabs 05/17/22 release oxycodone 5 mg tablet 5 mg PO Q4H PRN pain, severe #40 05/17/22 tabs Allergies Allergy/AdvReac Type Severity Reaction Status Date / Time No Known Drug Allergies Allergy Verified 11/16/22 12:59 Review of Systems Review of Systems Narrative: GENERAL: Denies chills, fatigue, malaise, fever, sweats. HEENT: Denies sinus pain, ear pain, sore throat, difficulty swallowing, dizziness. RESPIRATORY: Denies dyspnea, cough, wheezing, hemoptysis, sputum. CARDIOVASCULAR: Denies chest pain, palpitations, orthopnea, edema, GASTROINTESTINAL: Denies nausea, vomiting, abdominal pain, diarrhea, constipation, melena. : Denies dysuria, frequency, incontinence, hematuria, urinary retention. MUSCULOSKELETAL: See HPI SKIN: Denies rash, skin lesions, or other NEUROLOGIC: See HPI PSYCHIATRIC: No concerning psychosocial issues. 12 point review of systems is negative except for those stated above Patient History Medical History Diabetes (~1988) Hearing impaired HLD (hyperlipidemia) HTN (hypertension) HECTOR (obstructive sleep apnea) Osteoarthritis Seasonal allergies Sinus drainage Surgical History Hx of appendectomy (1971) Hx of cholecystectomy (2019) Hx of tonsillectomy Social History household members: spouse Smoking Status: Former smoker alcohol intake: former Smoking Status: Former smoker alcohol intake frequency: 0-2 drinks per day Substance Use Type: does not use Exam Narrative Exam Narrative: GENERAL: [77] year old patient appears stated age. Well-developed patient, in mild distress. HEAD: Atraumatic. Normocephalic. EYES: Pupils equal round and reactive. Extraocular motions intact. No scleral icterus. No injection or drainage. ENT: Nose without bleeding, purulent drainage. Throat without erythema, tonsillar hypertrophy or exudate. Airway patent. NECK: Trachea midline. Non tender CARDIOVASCULAR: Regular rate and rhythm without murmurs, gallops, or rubs. RESPIRATORY: Clear to auscultation. Breath sounds equal bilaterally. No wheezes, rales, or rhonchi. GASTROINTESTINAL: Abdomen soft, non-tender, nondistended. EXTREMITIES: Left hip tender to palpate with shortening and internal rotation, this is closed, isolated and neurovascularly intact, exam consistent with dislocation BACK: Nontender without deformity or crepitance. No flank tenderness. NEURO: AOx3. SKIN: No rash or erythema of visible areas Initial Vital Signs Initial Vital Signs: Vital Signs Temperature 98.7 F 03/17/23 11:10 Pulse Rate 66 03/17/23 11:10 Respiratory Rate 20 03/17/23 11:10 Blood Pressure 153/73 H 03/17/23 11:10 Pulse Oximetry 96 03/17/23 11:10 Oxygen Delivery Method Room Air 03/17/23 11:10 Procedures Orthopedic Joint Reduction Joint #1: Time Out Performed: Yes Side: left Joint Reduction Location: hip Technique used: traction/counter-traction and direct manipulation Post-reduction neuro exam: intact Post-reduction vascular: intact Post Reduction X-Ray Obtained: Yes Post Reduction X-Ray Results: reduced Splint Applied: Yes Patient Tolerated Procedure: Well Procedural Sedation Consent signed: Yes Time out performed: Yes Indication: fracture/dislocation reduction ASA Class: II Mallampati Airway Classification: Class II IV Propofol dose (mg): 100 Intraservice time/total sedation time (min): 12 ED Sedation Level: Moderate (Concious) Patient Tolerated Procedure: Well Complications: hypoventilation Interventions: Airway repositioned Course Orders Ordered: Discontinued Medications Sodium Chloride (Normal Saline 0.9%) 500 mls @ 1,000 mls/hr IV BOLUS ONE Stop: 03/17/23 13:45 Last Infusion: 03/17/23 13:21 Dose: 0 mls/hr Documented By: Admin: 03/17/23 13:20 Dose: 1,000 mls/hr Documented By: JOSE Propofol (Propofol 200 Mg/20 Ml Vial) 200 mg IV NOW ONE Stop: 03/17/23 11:13 Last Admin: 03/17/23 12:53 Dose: 100 mg Documented By: JOSE Vital Signs Vital signs: Vital Signs - 8 hr 03/17/23 11:10 03/17/23 12:07 03/17/23 12:30 Temperature 98.7 F Pulse Rate 66 72 Respiratory Rate 20 11 L Blood Pressure 153/73 H 131/63 Pulse Oximetry 96 97 Oxygen Delivery Method Room Air 03/17/23 12:30 03/17/23 12:40 03/17/23 12:40 Temperature Pulse Rate 70 74 Respiratory Rate 16 Blood Pressure 169/78 H Pulse Oximetry 98 Oxygen Delivery Method Room Air 03/17/23 12:45 03/17/23 12:45 03/17/23 12:52 Temperature Pulse Rate 74 Respiratory Rate 26 H Blood Pressure 139/67 161/74 H Pulse Oximetry 99 Oxygen Delivery Method 03/17/23 12:52 03/17/23 12:55 03/17/23 12:55 Temperature Pulse Rate 77 74 Respiratory Rate 24 19 Blood Pressure 139/61 Pulse Oximetry 98 94 Oxygen Delivery Method Room Air Room Air 03/17/23 13:05 03/17/23 12:45 Temperature Pulse Rate 70 Respiratory Rate 22 14 Blood Pressure 105/59 L Pulse Oximetry Oxygen Delivery Method Medical Decision Making MDM Narrative Medical decision making narrative: [77] year old patient presents with recurrent hip dislocation Multiple etiologies for patient's symptoms considered including, but not limited to: [Dislocation versus fracture versus other] Prior Charts reviewed in our EMR Primary Historian: patient Imaging reviewed: Initial x-ray confirms dislocation, postreduction film confirms successful reduction Consultations: Brief discussion with on-call orthopedist, agrees with diagnosis and plan to sedate and reduce, place in knee immobilizer and have follow-up Patient's symptoms improved over duration of stay with above-stated therapies. Findings and discharge diagnosis discussed with patient/family followed by verbalization of understanding Return precautions discussed with patient/family whom verbalize understanding of diagnosis and plan Discharge Plan Departure Patient Disposition: Home Clinical Impression: Dislocation, hip Qualifiers: Encounter type: subsequent encounter Laterality: left Qualified Code(s): S73.005D - Unspecified dislocation of left hip, subsequent encounter Instructions: DI for Hip Dislocation -- Adult Activity Restrictions/Additional Instructions: Instructions: Hip Dislocation Activity Restrictions/Additional Instructions: Please follow-up with orthopedic surgery, call to set up an appointment in the next week or so. You are going to want to avoid movements such as bending at the hip with flexion of the knee and/or rotation at the same time. Continue your knee immobilizer until you follow-up with orthopedic surgery. This is to prevent you from bending at the knee which will make you less likely to have recurrent dislocation. If the doctor gave you a sedative: For 24 hours, don't do anything that requires attention to detail. This includes going to work, making important decisions, or signing any legal documents. It takes time for the medicine's effects to completely wear off. For your safety, do not drive or operate any machinery that could be dangerous. Wait until the medicine wears off and you can think clearly and react easily. Your doctor will give you safety precautions to keep your hip centred in its socket during the healing period. Be sure to follow these precautions. Keep your knees and toes pointed forward when you sit in a chair, walk, or stand. Do not sit with your legs crossed. Do not bend at the waist more than 90?. Be careful when leaning or when moving in bed to keep your legs as straight ahead as possible. If you have a hip brace, wear it as directed. Do not remove it unless your doctor says you can. If you remove the brace to shower, be extremely careful. Follow hip precautions to limit hip movement. Rest your hip as much as you can. You will need to change your activities to avoid movements that irritate the hip. If your hip is swollen, put ice or a cold pack on it for 10 to 20 minutes at a time. Try to do this every 1 to 2 hours for the next 3 days (when you are awake) or until the swelling goes down. Put a thin cloth between the ice and your skin. Prescriptions: No Action atorvastatin 20 mg Tablet 20 mg PO BEDTIME cetirizine 10 mg Tablet 10 mg PO DAILY amlodipine 10 mg Tablet 10 mg PO DAILY ferrous sulfate 325 mg (65 mg iron) Tablet 325 mg PO DAILY ibuprofen 200 mg Tablet 800 mg PO BID hydrochlorothiazide 25 mg Tablet 25 mg PO DAILY fluticasone propionate 50 mcg/actuation [place],Suspension 1 spray INTRANASAL BID Rx Instructions: administer into each nostril metformin 500 mg Tablet Extended Release 24 Hr 1,000 mg PO BID atenolol 50 mg Tablet 50 mg PO BEDTIME glipizide 5 mg Tablet 2.5 mg PO BID potassium chloride 20 mEq Tablet Extended Release 20 meq PO DAILY terbinafine HCl 250 mg Tablet 250 mg PO DAILY acetaminophen 325 mg Tablet 650 mg PO Q6HR PRN (Reason: fever or pain) Qty: 240 0RF aspirin 81 mg Tablet,Delayed Release (Dr/Ec) 81 mg PO BID Qty: 90 0RF oxycodone 5 mg Tablet 5 mg PO Q4H PRN (Reason: pain, severe) Qty: 40 0RF Referrals: Jo Ann Velez ARNP [Primary Care Provider] - Ashlee Bartholomew MD [Physician] - Stand Alone Forms: Patient Portal/API
[2023-03-17] MEDS: propofoL 200 MG/20 ML VIAL IV (12:53)
--- NOTE | 2023-03-17 12:56 | DI.RAD.S_ITS ---
PROCEDURE: XR HIP LT 1V INDICATIONS: post reduction TECHNIQUE: 1 views of the hip were acquired. COMPARISON: [facility], CR, XR PELVIS WITH LATERAL HIP LEFT, 03/14/2023, 15:31. [facility], CR, XR HIP W PEL IF DONE LT 2V, 03/17/2023, 11:31. FINDINGS: Bones: On this post reduction study, the left prosthetic femoral head appropriate overlies the left prosthetic acetabular cup. No acute fracture is identified. There is moderate to severe superior joint space narrowing seen of the contralateral right hip, with associated remodeling changes with subchondral sclerosis and osteophyte formation. Age-appropriate lower lumbar spine degenerative changes are noted. Soft tissues: No suspicious soft tissue calcifications or masses. Atherosclerotic calcification is noted. IMPRESSION: Left prosthetic hip relocation. Moderate to severe right hip degenerative change Dictated by: Miguel A Huynh M.D. on 03/17/2023 at 12:26 Approved by: Miguel A Huynh M.D. on 03/17/2023 at 12:27
[2023-03-17] MEDS: SODIUM CHLORIDE 0.9% 500 ML 1000 ML IV (13:20)
--- NOTE | 2023-03-17 13:23 | PC.NURSE ---
Patient tolerated procedure well. BP dropped to 105/59 and patient was given 500cc bolus of NS, increasing to 153/67. 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
--- NOTE | 2023-03-17 14:40 | PC.NURSE ---
Patient's spouse drove [employer] to pick him up. He was assisted to the vehicle with [employer] stand by assist.
== END 2023-03-17 14:40 | disposition home or self-care (01) ==
PROVIDERS: Emergency Provider Emergency Medicine; PCP Nurse Practitioner
DX: S73.005A Unspecified dislocation of left hip, initial encounter (principal); Z79.899 Other long term (current) drug therapy; Z96.643 Presence of artificial hip joint, bilateral
CPT/HCPCS: 27265; 73501; 73502; 99152; 99284; J2704

== ENCOUNTER 2023-04-10 09:59 | Emergency (ER) | payer MEDICARE, OTHER, SELFPAY ==
[2022-05-16 11:35] VITALS: BMI 25.3
[2023-04-10] VITALS (30 sets, daily range): BP systolic 90–154; BP diastolic 51–72; PULSE 69–80; RESP 10–27; TEMP 36.4; O2SAT 92–100; BMI 26.6
--- NOTE | 2023-04-10 10:14 | DI.RAD.S_ITS ---
PROCEDURE: XR HIP W PEL IF DONE LT 2V INDICATIONS: dislocated TECHNIQUE: AP pelvis with lateral view(s) of the left hip(s). COMPARISON: [facility], CR, XR HIP W PEL IF DONE LT 2V, 03/17/2023, 11:31. [facility], , XR HIP LT 1V, 03/17/2023, 12:53. FINDINGS: Bones: There is dislocation of the left hip arthroplasty with medial displacement of the femoral component in relation to the acetabulum. Hardware appears intact. Severe right hip arthritic change. Pelvic ring appears intact. No suspicious bony lesions. Soft tissues: The visualized bowel gas pattern is normal. No suspicious soft tissue calcifications. IMPRESSION: Left hip arthroplasty displacement. Hardware does not demonstrate fracture. Dictated by: Kia Brar M.D. on 04/10/2023 at 11:37 Approved by: Kia Brar M.D. on 04/10/2023 at 11:38
--- NOTE | 2023-04-10 10:20 | ED.LOWEXIN ---
HPI - Extremity Injury (Lower) General Chief Complaint: Extremity Injury, Lower Stated Complaint: L Hip pop Time Seen by Provider: 04/10/23 10:14 Source: patient and EMS Mode of arrival: EMS History of Present Illness HPI Narrative: Patient 77 year old male who presents with left hip pain. He initially had a left total hip arthroplasty April of 2022 presenting today for his dislocation. He reports that today he was not wearing his brace and he was putting on his socks when he felt a pop in his hip came out. He reports that every time his hip has come out he was not wearing his brace. He is no other injury or pain today. He has had it reduced easily previously in the ED. his complain of little bit of numbness in the left leg. Related Data Home Medications Medication Instructions Recorded Confirmed amlodipine 10 mg tablet 10 mg PO DAILY 05/09/22 05/16/22 atenolol 50 mg tablet 50 mg PO BEDTIME 05/09/22 05/16/22 atorvastatin 20 mg tablet 20 mg PO BEDTIME 05/09/22 05/16/22 cetirizine 10 mg tablet 10 mg PO DAILY 05/09/22 05/09/22 ferrous sulfate 325 mg (65 mg 325 mg PO DAILY 05/09/22 05/09/22 iron) tablet fluticasone propionate 50 1 spray intranasal BID 05/09/22 05/09/22 mcg/actuation nasal spray,suspension glipizide 5 mg tablet 2.5 mg PO BID 05/09/22 05/16/22 hydrochlorothiazide 25 mg tablet 25 mg PO DAILY 05/09/22 05/16/22 ibuprofen 200 mg tablet 800 mg PO BID 05/09/22 05/09/22 metformin 500 mg tablet,extended 1,000 mg PO BID 05/09/22 05/16/22 release 24 hr potassium chloride 20 mEq 20 meq PO DAILY 05/09/22 05/16/22 tablet,extended release terbinafine HCl 250 mg tablet 250 mg PO DAILY 05/09/22 05/09/22 Previous Rx's Medication Instructions Recorded acetaminophen 325 mg tablet 650 mg PO Q6HR PRN fever or pain 05/17/22 #240 tabs aspirin 81 mg tablet,delayed 81 mg PO BID #90 tabs 05/17/22 release oxycodone 5 mg tablet 5 mg PO Q4H PRN pain, severe #40 05/17/22 tabs Allergies Allergy/AdvReac Type Severity Reaction Status Date / Time No Known Drug Allergies Allergy Verified 11/16/22 12:59 Review of Systems Review of Systems ROS Unobtainable: All systems reviewed & are unremarkable except as noted in HPI and below Patient History Medical History Diabetes (~1988) Hearing impaired HLD (hyperlipidemia) HTN (hypertension) HECTOR (obstructive sleep apnea) Osteoarthritis Seasonal allergies Sinus drainage Surgical History Hx of appendectomy (1971) Hx of cholecystectomy (2019) Hx of tonsillectomy Social History household members: spouse Smoking Status: Former smoker alcohol intake: former Smoking Status: Former smoker alcohol intake frequency: 0-2 drinks per day Substance Use Type: does not use Exam Initial Vital Signs Initial Vital Signs: Vital Signs Pulse Rate 69 04/10/23 10:04 Blood Pressure 154/72 H 04/10/23 10:04 Pulse Oximetry 97 04/10/23 10:04 GENERAL: Alert 77-year-old male and in no acute distress. HEENT: Head atraumatic,EOMI, pupils reactive, face symmetric, moist mucous membranes CARDIOVASCULAR: Regular rate and rhythm without murmurs, rubs or gallops. RESPIRATORY: Breath sounds equal bilaterally, no wheezes rales or rhonchi. ABDOMEN: Soft, nontender. Normoactive bowel sounds all 4 quadrants. No guarding or rebound. EXTREMITIES: Normal range of motion, no clubbing or edema. Neurovascularly intact Left leg is short and distal pedal pulse is felt but difficult. Minimal tenderness on left hip NEUROLOGICAL: Alert and oriented x4. SKIN: Warm, dry, no laceration, no petechiae, no rashes or lesions. Procedures Orthopedic Joint Reduction Joint #1: Side: left Joint Reduction Location: hip Technique used: traction/counter-traction and direct manipulation Post-reduction neuro exam: intact and no change Post-reduction vascular: intact and other (improved) Post Reduction X-Ray Obtained: Yes Post Reduction X-Ray Results: reduced Splint Applied: Yes Patient Tolerated Procedure: Well Orthopedic Splinting/Casting Injury #1: Side: left Lower Extremity Immobilizer: knee immobilizer Post splinting neuro exam: intact and no change Post splinting vascular exam: no change Placed by: Nursing Procedural Sedation Consent signed: Yes Time out performed: Yes Indication: fracture/dislocation reduction ASA Class: II Mallampati Airway Classification: Class II IV Propofol dose (mg): 100 Intraservice time/total sedation time (min): 14 ED Sedation Level: Moderate (Concious) Patient Tolerated Procedure: Well Complications: hypoventilation Interventions: Airway repositioned, Assist by BVM and Oxygen applied Course Orders Ordered: ED Orders 04/10/23 10:14 XR hip w pel if done LT 2V Stat 04/10/23 12:19 XR hip w pel if done LT 2V Stat Discontinued Medications Hydromorphone HCl (Hydromorphone 0.5 Mg Inj) 0.5 mg IV NOW ONE Stop: 04/10/23 10:22 Last Admin: 04/10/23 10:29 Dose: 0.5 mg Documented By: JUAN MANUEL Propofol (Propofol 200 Mg/20 Ml Vial) 100 mg IV NOW ONE Stop: 04/10/23 10:22 Last Admin: 04/10/23 12:09 Dose: 100 mg Documented By: AMV Vital Signs Vital signs: Vital Signs - 8 hr 04/10/23 12:04 04/10/23 11:15 04/10/23 11:30 Pulse Rate 79 76 75 Respiratory Rate 21 Blood Pressure 138/67 Pulse Oximetry 97 96 93 04/10/23 11:45 04/10/23 12:00 04/10/23 12:00 Pulse Rate 76 75 Respiratory Rate 10 L Blood Pressure 132/63 Pulse Oximetry 94 94 04/10/23 12:05 04/10/23 12:05 04/10/23 12:10 Pulse Rate 79 77 Respiratory Rate 17 18 Blood Pressure 138/67 Pulse Oximetry 96 92 04/10/23 12:10 04/10/23 12:15 04/10/23 12:15 Pulse Rate 76 Respiratory Rate 27 H Blood Pressure 100/58 L 102/55 L Pulse Oximetry 100 04/10/23 12:20 04/10/23 12:20 04/10/23 12:22 Pulse Rate 75 75 Respiratory Rate 17 14 Blood Pressure 90/51 L Pulse Oximetry 98 97 04/10/23 12:22 04/10/23 12:25 04/10/23 12:25 Pulse Rate 78 Respiratory Rate 26 H Blood Pressure 104/57 L 120/59 L Pulse Oximetry 97 04/10/23 12:31 04/10/23 12:30 04/10/23 12:30 Pulse Rate 80 78 Respiratory Rate 18 11 L Blood Pressure 119/59 L Pulse Oximetry 95 04/10/23 12:35 04/10/23 12:35 04/10/23 12:40 Pulse Rate 77 78 Respiratory Rate 12 13 Blood Pressure 112/58 L Pulse Oximetry 96 96 04/10/23 12:40 04/10/23 12:45 04/10/23 12:45 Pulse Rate 77 Respiratory Rate 10 L Blood Pressure 120/57 L 116/58 L Pulse Oximetry 94 04/10/23 12:50 04/10/23 12:50 04/10/23 12:55 Pulse Rate 76 76 Respiratory Rate 12 13 Blood Pressure 113/57 L Pulse Oximetry 95 95 04/10/23 12:55 04/10/23 13:00 04/10/23 13:00 Pulse Rate 75 Respiratory Rate 10 L Blood Pressure 120/60 128/56 L Pulse Oximetry 95 04/10/23 13:05 04/10/23 13:05 04/10/23 13:10 Pulse Rate 76 Respiratory Rate 10 L Blood Pressure 110/58 L 120/64 Pulse Oximetry 96 04/10/23 13:10 04/10/23 13:15 04/10/23 13:15 Pulse Rate 75 77 Respiratory Rate 13 13 Blood Pressure 123/58 L Pulse Oximetry 95 94 04/10/23 13:20 04/10/23 13:20 04/10/23 13:30 Pulse Rate 76 Respiratory Rate 12 Blood Pressure 125/59 L 109/58 L Pulse Oximetry 93 04/10/23 13:30 Pulse Rate 75 Respiratory Rate Blood Pressure Pulse Oximetry 95 MDM - Extremity Injury (Lower) Imaging Data Extremity x-ray #1: Radiologist's Impression: PROCEDURE:? XR HIP W PEL IF DONE LT 2V ? INDICATIONS:? dislocated ? TECHNIQUE:? AP pelvis with lateral view(s) of the left hip(s).? ? COMPARISON:? [facility], CR, XR HIP W PEL IF DONE LT 2V, 03/17/2023, 11:31.? Merged With [facility], , XR HIP LT 1V, 03/17/2023, 12:53. ? FINDINGS:? ? Bones:? There is dislocation of the left hip arthroplasty with medial displacement of the femoral component in relation to the acetabulum.? Hardware appears intact.? Severe right hip arthritic change.? Pelvic ring appears intact.? No suspicious bony lesions.? ? Soft tissues:? The visualized bowel gas pattern is normal.? No suspicious soft tissue calcifications.? ? ? IMPRESSION:? ? Left hip arthroplasty displacement.? Hardware does not demonstrate fracture. ? Dictated by: Kia Brar M.D. on 04/10/2023 at 11:37 ? ? Approved by: Kia Brar M.D. on 04/10/2023 at 11:38 ? Extremity x-ray #2: Radiologist's Impression: PROCEDURE:? XR HIP W PEL IF DONE LT 2V ? INDICATIONS:? post reduction ? TECHNIQUE:? AP pelvis with lateral view(s) of the left hip(s).? ? COMPARISON:? Merged With [facility], , XR HIP W PEL IF DONE LT 2V, 04/10/2023, 10:40. ? FINDINGS:? ? Post reduction of previously dislocated left femoral arthroplasty with good anatomic alignment.? No visualized hardware or osseous fracture.? Prominent right hip arthritic change is present. ? ? IMPRESSION:? Interval reduction with good anatomic alignment of previous left femoral arthroplasty dislocation. ? Dictated by: Kia Brar M.D. on 04/10/2023 at 13:20 ? ? MDM Narrative Medical decision making narrative: Patient 77-year-old male who presents today for recurrent hip dislocation. He was not wearing his rate and in a position that frequently pops out. It was easily reduced he was given 100 mg of propofol which he has been given almost every single time before without complication. His time he needed some oxygen away repositioning. I would definitely give less time. I did touch base with Dr. Bartholomew on-call orthopedics. Patient has an appointment with ortho this week. He knows exactly what he is supposed to do and what he is not supposed to do. Discharge Plan Departure Patient Disposition: Home Clinical Impression: Closed dislocation of left hip Instructions: DI for Hip Dislocation -- Adult Activity Restrictions/Additional Instructions: *You have been diagnosed with left hip dislocated *What to do: Please see Orthopedic surgery this week as scheduled. Wear brace at all times so it is less likely your hip comes out *Continue to take medications as directed *Follow up with your primary care provider in 2-3 days or call [phone] Call orthopedics *Return to ER if you should have recurrent dislocation, pain numbness tingling weakness or any new, worsening or concerning symptoms Prescriptions: No Action atorvastatin 20 mg Tablet 20 mg PO BEDTIME cetirizine 10 mg Tablet 10 mg PO DAILY amlodipine 10 mg Tablet 10 mg PO DAILY ferrous sulfate 325 mg (65 mg iron) Tablet 325 mg PO DAILY ibuprofen 200 mg Tablet 800 mg PO BID hydrochlorothiazide 25 mg Tablet 25 mg PO DAILY fluticasone propionate 50 mcg/actuation [place],Suspension 1 spray INTRANASAL BID Rx Instructions: administer into each nostril metformin 500 mg Tablet Extended Release 24 Hr 1,000 mg PO BID atenolol 50 mg Tablet 50 mg PO BEDTIME glipizide 5 mg Tablet 2.5 mg PO BID potassium chloride 20 mEq Tablet Extended Release 20 meq PO DAILY terbinafine HCl 250 mg Tablet 250 mg PO DAILY acetaminophen 325 mg Tablet 650 mg PO Q6HR PRN (Reason: fever or pain) Qty: 240 0RF aspirin 81 mg Tablet,Delayed Release (Dr/Ec) 81 mg PO BID Qty: 90 0RF oxycodone 5 mg Tablet 5 mg PO Q4H PRN (Reason: pain, severe) Qty: 40 0RF Referrals: [facility] [Provider Group] Jo Ann Velez ARNP [Primary Care Provider] - Stand Alone Forms: Patient Portal/API
[2023-04-10] MEDS: HYDROMORPHONE 0.5 MG INJ IV (10:29)
[2023-04-10] MEDS: propofoL 200 MG/20 ML VIAL 100 MG IV (12:09)
--- NOTE | 2023-04-10 12:19 | DI.RAD.S_ITS ---
PROCEDURE: XR HIP W PEL IF DONE LT 2V INDICATIONS: post reduction TECHNIQUE: AP pelvis with lateral view(s) of the left hip(s). COMPARISON: [facility], , XR HIP W PEL IF DONE LT 2V, 04/10/2023, 10:40. FINDINGS: Post reduction of previously dislocated left femoral arthroplasty with good anatomic alignment. No visualized hardware or osseous fracture. Prominent right hip arthritic change is present. IMPRESSION: Interval reduction with good anatomic alignment of previous left femoral arthroplasty dislocation. Dictated by: Kia Brar M.D. on 04/10/2023 at 13:20 Approved by: Kia Brar M.D. on 04/10/2023 at 13:20
--- NOTE | 2023-04-10 12:21 | PC.NURSE ---
pt able to move toes on left side.
--- NOTE | 2023-04-10 12:51 | PC.NURSE ---
Pt continues to do well on RA with o2 sat 97%
== END 2023-04-10 14:00 | disposition home or self-care (01) ==
PROVIDERS: Emergency Provider Emergency Medicine; PCP Nurse Practitioner
DX: S73.005A Unspecified dislocation of left hip, initial encounter (principal); Z96.642 Presence of left artificial hip joint; Z79.899 Other long term (current) drug therapy
CPT/HCPCS: 27265; 73502; 96374; 99284; J1170; J2704

== ENCOUNTER 2023-04-26 09:23 | Inpatient (IN) | payer MEDICARE, OTHER, SELFPAY ==
[2022-05-16 11:35] VITALS: BMI 25.3
[2023-04-18 13:35] VITALS: BMI 26.8
[2023-04-26] VITALS (10 sets, daily range): BP systolic 105–129; BP diastolic 57–72; PULSE 69–96; RESP 14–20; TEMP 35.9–36.9; O2SAT 93–98; BMI 26.8
--- NOTE | 2023-04-26 | DI.RAD.S_ITS ---
PROCEDURE: XR HIP W PEL IF DONE LT 2V INDICATIONS: INTRAOP TECHNIQUE: 2 view(s) of the hip acquired. COMPARISON: [facility], [place], XR HIP W PEL IF DONE LT 2V, 04/10/2023, 12:19. FINDINGS: Bones: Intraoperative left hip arthroplasty revision changes, with hardware components in expected positions. The hip joint appears congruent. The visualized bony structures appear intact. Soft tissues: Overlying postoperative changes are noted. No suspicious soft tissue densities. IMPRESSION: Expected postsurgical change for left hip arthroplasty. Dictated by: Monica Montero MD, PhD on 04/26/2023 at 17:09 Approved by: Monica Montero MD, PhD on 04/26/2023 at 17:10
--- NOTE | 2023-04-26 06:38 | DI.RAD.S_ITS ---
PROCEDURE: XR HIP W PEL IF DONE LT 2V INDICATIONS: total left hip TECHNIQUE: AP pelvis and lateral view of the left hip acquired. COMPARISON: [facility], [place], XR HIP LT 1V, 03/17/2023, 12:53. [facility], [place], XR HIP W PEL IF DONE LT 2V, 04/10/2023, 10:40. [facility], [place], XR HIP W PEL IF DONE LT 2V, 04/10/2023, 12:19. FINDINGS: Bones: Patient is status post left hip arthroplasty revision, with hardware components in expected positions. The hip joint appears congruent. The visualized bony structures appear intact. Moderate right hip joint degeneration. Soft tissues: Overlying postoperative changes are noted. No suspicious soft tissue densities. IMPRESSION: Left hip prosthesis in anatomic alignment. Dictated by: Shanti Peña M.D. on 04/26/2023 at 17:02 Approved by: Shanti Peña M.D. on 04/26/2023 at 17:03
[2023-04-26] MEDS: LACTATED RINGERS 1,000 ML 42 ML IV (10:06)
[2023-04-26] MEDS: ACETAMINOPHEN 325 MG TABLET 975 MG PO (10:44)
[2023-04-26] MEDS: CELECOXIB 200 MG CAPSULE PO (10:44)
[2023-04-26] MEDS: VANCOMYCIN 1,000 MG/200 ML PIGGYBACK 200 MG IV (12:15)
[2023-04-26] MEDS: TRANEXAMIC ACID 1,000 MG VIAL 1000 MG INJ (14:15)
[2023-04-26] MEDS: CEFAZOLIN 2 GM/100 ML PREMIX 100 ML IV ×2 (14:17→23:11)
--- NOTE | 2023-04-26 14:39 | SUR.OPER ---
Patient supine on padded [place] table, both arms padded with egg crate on arm board at <90, both legs secured in padded traction boots and positioned per surgeon, padded post at patient's groin, pressure points checked and padded.
[2023-04-26] MEDS: ROPIVACAINE/EPI/CLONIDINE/KET 50 ML SYRINGE INJ (15:25)
--- NOTE | 2023-04-26 17:02 | P.OP_ITS ---
Operative Date/Time/Diagnoses Date of procedure: 04/26/23 Time of procedure: 12:00 Pre-op diagnosis: Recurrent prosthetic left hip instability Post-op diagnosis: same Procedure & Clinicians Procedure: Revision acetabular component of left total hip arthroplasty (CPT code 28557) Same procedure as scheduled: Yes Indications: Recurrent left hip instability Surgeon: Alessandro Galarza Yes if Unassisted: No Anesthesia Type: Spinal and Sedation Operative Notes Findings: Left hip instability noted during preoperative testing after anesthesia induction Prosthetic devices, grafts, tissues, transplants, or devices: 58 mm Redapt revision cup with 3 screws (25 mm nonlocking, 15 mm locking, 25 mm locking), 58/44 oxinium modular dual mobility liner, 44/28+4 oxinium dual mobility head Estimated Blood Loss (mL): 250 Blood products transfused: none Procedure in detail: The assistance of Ashlee Bartholomew MD was required during this case for assistance regarding acetabular component placement and stability testing. The assistance of NILE Waterman was required for room set up and retracting as well as wound closure. Without the assistance of these 2, the surgery would have been technically more challenging and would have required significant additional time. This 77-year-old male patient had undergone an there total hip arthroplasty and had recurrent instability episodes. He noted sciatic nerve irritation symptoms during some of these episodes. He was evaluated including a CT scan. Inflammatory markers were obtained to rule out infection which were normal. We discussed management of his hip instability and discussed operative options. Wished to proceed with surgery. He was met in preoperative holding the day of surgery and risks and benefits were discussed at length. Specific risks which we discussed were recurrent instability, infection, iatrogenic leg lengthening which I told him was likely to occur, foot drop, medical complications such as heart attack or stroke, and complications related to anesthesia. He wished to proceed. He was brought back to the operating room and placed supine on the [place] table. 2 g of Ancef and tranexamic acid were administered. We tested his stability and noted that with hip flexion past 90? he dislocated. With hip internal rotation at 90? he also dislocated. He was then prepped and draped in the usual sterile fashion. His old scar was visualized. This was excised. Dissected down to the TFL fascia and incised this. A Cobra retractor was placed over the prosthetic femoral neck. Another Cobra was placed over the inferior aspect of the prosthetic femoral neck. Scar was dissected in the interval between the TFL and the rectus. There was no significant remaining capsule. An anterior wall retractor was placed and an ilium release was performed. Significant additional scar was resected circumferentially around the hip capsule. The femoral head was impacted into the polyethylene after application of traction and disengaged. The femoral head was then removed. The polyethylene liner was removed and a single screw which had been placed during the index surgery was taken out. The latter was replaced and curved cup extractor osteotomes were used to extract the 56 mm cup. We reamed up to 57 mm while visualizing under fluoroscopy and obtained a good pinch fit. We placed a 58 mm cup and matched the standing AP pelvis radiograph to determine appropriate cup abduction and anteversion. Once satisfied with our fluoroscopy and with the amount the cup was tucked underneath the anterior wall, we placed a nonlocking screw as well as 2 locking screws into the ilium. We then impacted in an Oxinium liner for a 58 mm cup with a 44 mm inner diameter. We then extended and adducted the femur and placed a 44 mm unipolar hemiarthroplasty head onto the trunnion. We brought this back up and reduced the hip. We performed numerous stability tests including a 45 degree drop test, maximum external rotation, and removed the traction boots from the [place] table to allow testing of hip flexion and internal rotation. None of these maneuvers caused any instability or impingement. We evaluated the construct fluoroscopically and determined that there had been interval increases in leg length and offset. Satisfied with this construct, we again extended and adducted the hip and placed a 28 mm +4 inner Oxinium head with a 44 mm outer diameter dual mobility onto the trunnion and impacted into place. We then reduced the hip and again tested the stability with the 45 degree drop test and maximum external rotation. No instability or impingement was noted. Final fluoroscopic images were obtained demonstrating appropriate component positioning and no fractures. The wound was irrigated with Betadine, a local injection of ropivacaine epinephrine clonidine and Toradol was injected throughout the soft tissues, and the wound was closed. A Dermabond skin closure was utilized and a soft dressing was applied. The patient was awakened and taken to the PACU without complication. Post-operative Plan for aftercare: Weight-bearing as tolerated with both anterior and posterior hip precautions Aspirin DVT prophylaxis Anticipate discharge home tomorrow Multimodal pain regimen
[2023-04-26] MEDS: LACTATED RINGERS 1,000 ML 100 ML IV (17:58)
[2023-04-26] MEDS: IBUPROFEN 600 MG TABLET PO ×2 (17:58→23:11)
[2023-04-26] MEDS: ACETAMINOPHEN 325 MG TABLET 650 MG PO ×2 (17:58→23:11)
[2023-04-26] MEDS: ATORVASTATIN 20 MG TABLET PO (21:00)
[2023-04-26] MEDS: METFORMIN XR 500 MG TABLET 1000 MG PO (21:00)
[2023-04-26] MEDS: DOCUSATE 100 MG CAPSULE PO (21:00)
[2023-04-26] MEDS: ASPIRIN EC 81 MG TABLET PO (21:00)
[2023-04-27] MEDS: IBUPROFEN 600 MG TABLET PO ×2 (04:31→12:41)
[2023-04-27] MEDS: LACTATED RINGERS 1,000 ML 100 ML IV (04:31)
[2023-04-27] MEDS: ACETAMINOPHEN 325 MG TABLET 650 MG PO ×2 (04:31→12:40)
[2023-04-27] MEDS: CEFAZOLIN 2 GM/100 ML PREMIX 100 ML IV (06:03)
[2023-04-27 06:07] LABS: Hematocrit 29.7 % (41-53); Hemoglobin 10.4 g/dL (13.5-17.5)
--- NOTE | 2023-04-27 07:47 | PM.PNPO.1 ---
Subjective Subjective Date Patient Seen: 04/27/23 Time Patient Seen: 07:47 Interval history: Patient states pain is [id number]. No fever chills. Patient states his is home available to assist him. Exam Vital Signs (past 8 hours): Oxygen Delivery Method Room Air Oxygen Flow Rate 0 Narrative Exam Narrative: 77-year-old male resting comfortably in bed in no apparent distress. Dressing is clean, dry and intact. Motor functions intact bilateral lower extremities. Const General: cooperative and comfortable Nutritional Appearance: average body habitus Orientation: alert Resp Effort & Inspection: normal respiratory effort and able to speak in complete sentences Objective Labs 04/27/23 05:39 Labs: Laboratory Results - last 24 hr 04/27/23 05:39 Hgb 10.4 L Hct 29.7 L PFSH Medical History Osteoarthritis Seasonal allergies Sinus drainage HLD (hyperlipidemia) HTN (hypertension) HECTOR (obstructive sleep apnea) Hearing impaired Diabetes (~1987) Surgical History History of left hip replacement Hx of tonsillectomy Hx of appendectomy (1971) Hx of cholecystectomy (2018) Social History household members: spouse Smoking Status: Former smoker alcohol intake: current Assessment & Plan Post-op Postoperative Procedures: Procedures Operation Date: 04/26/23 11:15 Actual Procedure Side Surgeon p Total Hip Arthroplasty revision /Anterior Approach Left Alessandro Little MD Postoperative day: 1 Postoperative status: doing well Postoperative plan: routine post-op care Postoperative plan narrative: Weight-bearing as tolerated, anterior and posterior hip precautions Multimodal pain management Disposition likely home today or tomorrow Quality VTE Deep Vein Thrombosis/Pulmonary Embolism Present on Admission: No
[2023-04-27 08:00] VITALS: BP 122/54; PULSE 69; RESP 18; TEMP 36.3; O2SAT 98
[2023-04-27] MEDS: DOCUSATE 100 MG CAPSULE PO (08:38)
[2023-04-27] MEDS: ASPIRIN EC 81 MG TABLET PO (08:38)
[2023-04-27] MEDS: glipiZIDE 5 MG TABLET 2.5 MG PO (08:39)
[2023-04-27] MEDS: LORATADINE 10 MG TABLET PO (08:40)
[2023-04-27] MEDS: FERROUS SULFATE 325 MG TABLET PO (08:40)
[2023-04-27] MEDS: METFORMIN XR 500 MG TABLET 1000 MG PO (08:41)
--- NOTE | 2023-04-27 10:19 | P.DS_ITS ---
History of Present Illness History of Present Illness Date Patient Seen: 04/27/23 Time Patient Seen: 07:42 Chief complaint: Hip pain Narrative: See progress note Discharge Providers Provider Date of admission: 04/26/23 09:23 Discharge Date: 04/27/23 Primary care physician: LORRAINE Calvillo Consults: 04/26/23 06:38 Consult to Anesthesiology Routine Comment: Consulting Provider: Anesthesiologist Reason for consultation: Regional block for post operative pain control 04/26/23 17:23 Consult to Discharge Planning Routine Comment: Consult to Occupational Therapy Evaluate & Treat Comment: Physician Instructions: Evaluate and treat Consult to Physical Therapy Evaluate & Treat Comment: Physician Instructions: post op EMMA protocol Discharge provider: Shashank Paez PA-C Summary Hospital Course Discharge Diagnosis: Recurrent prosthetic left hip instability Hospital Course: Revision acetabular component of left total hip arthroplasty (CPT code 55963) Same procedure as scheduled: Yes Indications: Recurrent left hip instability Surgeon: Alessandro Galarza Yes if Unassisted: No Anesthesia Type: Spinal and Sedation Operative Notes Findings: Left hip instability noted during preoperative testing after anesthesia induction Prosthetic devices, grafts, tissues, transplants, or devices: 58 mm Redapt revision cup with 3 screws (25 mm nonlocking, 15 mm locking, 25 mm locking), 58/44 oxinium modular dual mobility liner, 44/28+4 oxinium dual mobility head Estimated Blood Loss (mL): 250 Blood products transfused: none Patient admitted for the above-mentioned procedure. Patient consented to the same. Patient underwent revision acetabular component left total hip arthroplasty April 26, 2023. Patient back in his room recovering well as in stable condition. Multimodal pain management. Weightbearing as tolerated with anterior and posterior hip precautions. Discharge home today after physical therapy if safe for home environment. Status at Discharge Cognitive/behavioral status at discharge: at baseline, oriented Functional status at discharge: uses cane/walker Overall status at discharge: patient is progressing back to baseline Exam Vital Signs (past 8 hours): - 04/27/23 08:00 Temperature 97.4 F L Pulse Rate 69 Respiratory Rate 18 Blood Pressure 122/54 L Pulse Oximetry 98 Oxygen Flow Rate 0 Oxygen Delivery Method Room Air Oxygen Flow Rate 0 Narrative Exam Narrative: See progress note Objective Labs 04/27/23 05:39 Labs: Laboratory Results - last 24 hr 04/27/23 05:39 Hgb 10.4 L Hct 29.7 L PFSH Medical History Osteoarthritis Seasonal allergies Sinus drainage HLD (hyperlipidemia) HTN (hypertension) HECTOR (obstructive sleep apnea) Hearing impaired Diabetes (~1987) Surgical History History of left hip replacement Hx of tonsillectomy Hx of appendectomy (1971) Hx of cholecystectomy (2018) Social History household members: spouse Smoking Status: Former smoker alcohol intake: current Discharge Assessment & Plan Assessment and Plan Assessment: Patient progressing as expected Plan of Treatment: Multimodal pain management Aspirin for DVT prophylaxis Weight-bearing as tolerated, anterior and posterior hip precautions Discharge home today after physical therapy if safe for home environment. Discharge Plan Discharge orders & Medications Discharge Orders: Discharge (Order); Ordered 04/27/23 Ordered By: Shashank Paez Prescriptions: New acetaminophen 325 mg Tablet 650 mg PO Q6H Qty: 60 0RF polyethylene glycol 3350 17 gram Powder In Packet 17 gm PO DAILY PRN (Reason: Constipation) Qty: 10 0RF aspirin 81 mg Tablet,Delayed Release (Dr/Ec) 81 mg PO BID Qty: 60 0RF ibuprofen 600 mg Tablet 600 mg PO Q6H Qty: 60 0RF oxycodone 5 mg Tablet 5 mg PO Q6H PRN (Reason: Pain, Moderate (4-6)) Qty: 30 0RF Continued atorvastatin 20 mg Tablet 20 mg PO BEDTIME cetirizine 10 mg Tablet 10 mg PO DAILY amlodipine 10 mg Tablet 10 mg PO DAILY ferrous sulfate 325 mg (65 mg iron) Tablet See Rx Instructions .ROUTE .COMPLEX Patient Comments: every other day Rx Instructions: 325 mg orally hydrochlorothiazide 25 mg Tablet 25 mg PO DAILY fluticasone propionate [Flonase Allergy Relief] 50 mcg/actuation [place],Suspension 1 spray INTRANASAL BID Rx Instructions: administer into each nostril metformin 500 mg Tablet Extended Release 24 Hr 1,000 mg PO BID atenolol 50 mg Tablet 50 mg PO BEDTIME glipizide 5 mg Tablet 2.5 mg PO DAILY potassium chloride 20 mEq Tablet Extended Release 20 meq PO DAILY terbinafine HCl 250 mg Tablet 250 mg PO DAILY Discontinued ibuprofen 200 mg Tablet 800 mg PO BID acetaminophen 325 mg Tablet 650 mg PO Q6HR PRN (Reason: fever or pain) Qty: 240 0RF aspirin 81 mg tablet,delayed release (DR/EC) 81 mg PO DAILY Follow up/Referrals: Jo Ann Velez ARNP [Primary Care Provider] - Alessandro Little MD [Physician] - As previously scheduled (Follow up with Arti Valadez PA-C, on 05/10/2023 @ 1:00 pm at [facility] in [place].) Diet/Activity/Treatments Activity: Weight-bearing as tolerated, anterior and posterior hip precautions Skin/Wound/Dressing Care Report to your healthcare provider any signs of infection, such as:: chills, fever, night sweats, increased pain, unusual drainage and unusual redness Dressing: Keep dressing clean and dry Visit Report/Discharge Packet Instructions: DI for Hip Replacement, DI for Prescription Opioid Use Stand Alone Forms: Patient Portal/API, Stroke Signs & Symptoms Discharge Data Primary Care Provider: Jo Ann Velez Quality VTE Deep Vein Thrombosis/Pulmonary Embolism Present on Admission: No
--- NOTE | 2023-04-27 10:45 | PT.IIE ---
Current Diagnoses Unspecified dislocation of left hip, initial encounter (04/26/23) Presence of left artificial hip joint (04/26/23) Surgery Performed Operation Date: 04/26/23 11:15 Actual Procedures p Total Hip Arthroplasty revision /Anterior Approach(Left) - Alessandro Little MD Surgical History (Last Reviewed 04/27/23 @ 07:48 by Shashank Paez PA-C) History of left hip replacement Hx of appendectomy (1971) Hx of cholecystectomy (2018) Hx of tonsillectomy Medical History (Last Reviewed 04/27/23 @ 07:48 by Shashank Paez PA-C) Diabetes (~1987) Hearing impaired HLD (hyperlipidemia) HTN (hypertension) HECTOR (obstructive sleep apnea) Osteoarthritis Seasonal allergies Sinus drainage Physical Therapy Inpatient Evaluation/Re-Eval M1 PT/OT-IP Prior Functional Status Start: 04/27/23 13:11 Freq: NEEDED Status: Active Protocol: Document 04/27/23 10:45 AB (Rec: 04/27/23 13:24 [email or web address]) Medical Review Prior Functional Status Medical History Reviewed Yes Communication able to make needs known Mobility and Gait pt stated that he is independent with all mobilities and ambulation without AD Activities of Daily Living and IADL's Per OT note: Pt states had difficulty with socks and shoes Social History Household Members spouse Living Arrangements House Number of Floors (Floors) 3 or More Floors Number of Stairs To Enter/Railing? pt lives in a split level house Pt state has one step to enter and 7 steps with right rail ascending and L ledge to get to main level of the ouse Home Environment High Toilet,Walk in Shower,Tub /Shower Home Equipment Front Wheel Walker,Four Wheel Walker,Straight Cane,Shower Seat with Backrest,Hand Held Shower,Long Handled Shoe [place], Dentist Private Practice,Sock Aid M2 PT-IP Current Condition Start: 04/27/23 13:11 Freq: NEEDED Status: Active Protocol: Document 04/27/23 10:45 AB (Rec: 04/27/23 13:24 AB [email or web address]) Physical Therapy Current Condition Current Condition Evaluation Date 04/27/23 Treatment Diagnosis s/p L EMMA revision; difficulty in walking Onset Date 04/26/23 M3 PT-IP Subjective Start: 10/06/23 13:11 Freq: NEEDED Status: Active Protocol: Document 04/27/23 10:45 AB (Rec: 04/27/23 13:24 AB [id number]) Subjective Physical Therapy Visit Type Type Initial Evaluation Visit Start Time 10:45 Visit Stop Time 11:35 Total Visit Minutes 50 Number of SEPTIC TANK INSTALLER Visits 0 Physical Therapy Visit Comments Patient Comments pt agreeable to do PT Therapy Pain Assessment Pain When Pain Assessed At Rest Pain Present Pain Present Pain Reported Location Left Hip Intensity 2 Scale Used Numeric (0 - 10) Description Tender Pain Management Techniques Apply Cold,Distraction, Modification of Treatment,Re- positioning,Timing of Activity with Medications M4 PT-IP Mobility and Gait Start: 04/27/23 13:11 Freq: NEEDED Status: Active Protocol: Document 04/27/23 10:45 AB (Rec: 04/27/23 13:24 [email or web address]) PT-Bed Mobility Assessment Supine to Sit Supine to Sit Standby Assistance Sit to Supine Sit to Supine Standby Assistance PT-Transfer Assessment Sit to and From Stand Sit to and from Stand Standby Assistance,Use of Upper Extremities Equipment Transfer Assistive Device Gait Belt,Front Wheeled Walker Orthotic/Prosthetic Devices or Brace: No Transfers Transfer Destination Bed,Chair Transfer Technique Stand Step Pivot Transfer Ability Level of Assist Standby Assistance,1 Person Assistance,Use of Upper Extremities Comments Mobility Comments pt sitting on the chair. educated pt on anterior and posterior hip dislocations. pt able to recall 2/3. completed sit to stand SBA and able to step transfer to bed using FWW SBA. completed bed mobility sit <>supine SBA. occasional cues for hip precautions. completed sit to stand from EOB SBA and ambulated in the hallway using FWW SBA. educated pt on stair climbing. pt completed up/down platform step x 2 sets SBA to CGA. pt ambulated more in the hallway ~ 100 ft SBA using FWW and occasional cues to decrease stride on RLE. completed up/down steps using B rails SBA. pt ambulated back to his room using FWW SBA . pt sat back on the chair. positioned on the chair. call light and table placed within reach. pt without further concerns and is aware of his precautions. Gait Assessment Gait Gait Assistance Required: Standby Assistance Distance (Feet) 150 Able to Maintain Weight Bearing Status Yes During Gait Assistive Devices Assistive Device Gait Belt,Front Wheeled Walker Orthotic/Prosthetic Devices or Brace: No Gait Deviations General Gait Pattern Decreased Feet Clearance Factors Limiting Gait Function Factors Limiting Gait Function Decreased Activity Tolerance, Decreased Strength,Limited Range of Motion,Pain,Poor Balance Stair Climbing Assessment Evaluation Level of Assist On Stairs Standby Assistance Devices Stair Climbing Assistive Devices Front Wheel Walker,Left Railing,Right Railing Technique/Endurance Stair Climbing Direction Ascend and Descend Stair Climbing Technique Step to Step Number of Steps Climbed 3 Query Text: Stair Climbing Set # Repetitions (reps) 1 Comments Stair Climbing Comments pls refer to mobility sections for details PT-Balance Assessment Sitting Balance and Reactions Static Sitting Balance Ability Normal Dynamic Sitting Balance Ability Normal Standing Balance and Reactions Static Standing Balance Ability Good Dynamic Standing Balance Ability Fair Device Used FWW M5 PT-IP Objective Assessments Start: 04/27/23 13:11 Freq: NEEDED Status: Active Protocol: Document 04/27/23 10:45 AB (Rec: 04/27/23 13:24 [email or web address]) Orientation Orientation/Cognition Level of Alertness Alert Orientation Name Safety Awareness Understands Safety Issues Memory Description Short Term Impaired Strength Lower Extremity Strength Assessment Within Functional Limits Sensation Assessment Sensation Gross Sensation WNL Muscle Tone Muscle Tone WNL Yes M6 PT-IP Treatment Start: 04/27/23 13:11 Freq: NEEDED Status: Active Protocol: Document 04/27/23 10:45 AB (Rec: 04/27/23 13:24 [email or web address]) Physical Therapy Treatment Education Education Provided Precautions,Weight Bearing Status,Post-Op Packet,Safety M7 PT-IP Assessment and Plan Start: 04/27/23 13:11 Freq: NEEDED Status: Active Protocol: Document 04/27/23 10:45 AB (Rec: 04/27/23 13:24 [email or web address]) PT Summary Assessment and Plan Potential Rehabilitation Potential Good Status of Condition at Evaluation Stable Summary Impairments Pain,ROM,Strength,Balance, Coordination,Sensation,Tone, Cognition,Bed Mobility, Transfers,Gait,Activity Tolerance Assessment Summary pt is a 77 y/o male who has L hip instability with recurrent dislocations and underwent L EMMA revision. Pt currently has both anterior and posterior hip precautions and is WBAT. pt requiring SBA with mobility with occasional cues for precautions but overall able to maintain precautions. pt lives with his spouse who will be able to assist him as needed. pt stated that he has outpt PT scheduled. pt may go home when medicall stable. Goals Bed Mobility Goal Independent Transfer Goal Independent,Front Wheeled Walker Gait Goal Independent,Front Wheel Walker Gait Distance 300 Other Goals up/down 1 step to enter using FWW up/down 7 steps B rails mod I Days to Meet Goals 5 Frequency of Treatment Frequency Of Treatment Twice a Day Treatment Plan Physical Therapy Treatment Plan Bed Mobility Training,Transfer Training,Gait Training, Therapeutic Exercise,Balance Retraining,Post Op Education, Discharge Planning,Hot or Cold Pack,Neuromuscular Re-ed, Coordination Retraining,Manual Therapy Precautions Posterior Hip Precautions No Hip Flexion > 90 degrees,No Hip Internal Rotation,No Hip Adduction Anterior Hip Precautions No Hip Extension,No Hip External Rotation Weight Bearing Status Weight Bearing Status Weight Bear as Tolerated Allowed Weight Bearing Amount (enter % LLE WBAT or #) (%) Recommendations To Nursing Amount of Assist Needed Standby Assistance Discharge Recommendations PT Discharge Recommendations Home with Assistance, Outpatient PT Transportation Needs at Discharge Private Vehicle
--- NOTE | 2023-04-27 12:20 | OT.IP.EVAL ---
Current Diagnoses Unspecified dislocation of left hip, initial encounter (04/26/23) Presence of left artificial hip joint (04/26/23) Surgery Performed Operation Date: 04/26/23 11:15 Actual Procedures p Total Hip Arthroplasty revision /Anterior Approach(Left) - Alessandro Little MD Past Medical History (Last Reviewed 04/27/23 @ 07:48 by Shashank Paez PA-C) Diabetes (~1987) Hearing impaired HLD (hyperlipidemia) HTN (hypertension) HECTOR (obstructive sleep apnea) Osteoarthritis Seasonal allergies Sinus drainage Surgical History (Last Reviewed 04/27/23 @ 07:48 by Shashank Paez PA-C) History of left hip replacement Hx of appendectomy (1971) Hx of cholecystectomy (2018) Hx of tonsillectomy Occupational Therapy Inpatient Evaluation/Re-Eval M1 PT/OT-IP Prior Functional Status Start: 04/27/23 12:44 Freq: NEEDED Status: Active Protocol: Document 04/27/23 12:20 [facility] (Rec: 04/27/23 13:09 [facility] [id number]) Medical Review Prior Functional Status Communication Independent Mobility and Gait Independent with no devices per pt. Activities of Daily Living and IADL's Pt states had difficulty with socks and shoes. Social History Household Members spouse Living Arrangements House Number of Floors (Floors) Two Floors Number of Stairs To Enter/Railing? Split level house . Pt state has one step to the door and 7 steps with right rail going up. Home Environment High Toilet,Walk in Shower,Tub /Shower Home Equipment Shower Seat with Backrest,Hand Held Shower,Long Handled Shoe Horn,Toy Maker,Sock Aid M2 OT-IP Current Condition Start: 04/27/23 12:44 Freq: Status: Active Protocol: Document 04/27/23 12:20 [facility] (Rec: 04/27/23 13:09 [facility] [id number]) Occupational Therapy Current Condition Current Condition Evaluation Date 04/27/23 Treatment Diagnosis S/P L EMMA with anterior/ posterior precautions Diagnosis Onset Date 04/26/23 Post Operative Precautions Posterior Hip Precautions No Hip Flexion > 90 degrees,No Hip Internal Rotation,No Hip Adduction Anterior Hip Precautions No Hip Extension,No Hip External Rotation M3 OT- IP Subjective and Pain Start: 04/27/23 12:44 Freq: Status: Active Protocol: Document 04/27/23 12:20 [facility] (Rec: 04/27/23 13:09 [facility] [id number]) OT- Subjective Occupational Therapy Visit Type Type Initial Evaluation Visit Start Time 12:20 Visit Stop Time 12:41 Total Visit Minutes 21 Occupational Therapy Visit Comments Patient Comments Pt agreed to get dressed. Patient/Caregiver Goals TO go home. OT Pain Assessment Pain When Pain Assessed At Rest Pain Present Pain Present Denied Pain M4 OT- IP ADL's Start: 04/27/23 12:44 Freq: Status: Active Protocol: Document 04/27/23 12:20 [facility] (Rec: 04/27/23 13:09 [facility] [id number]) OT BBK-Mvak-Ffksxek General Evaluation Self-Feeding Ability Independent OT ADL-Grooming General Evaluation Grooming Ability Independent OT ADL-Oral Care Comments Oral Care Comments Not performed. OT ADL-Dressing General Eval Upper Body Dressing Ability Independent Lower Body Dressing Ability Moderate Assistance Areas Needing Assistance Socks,Shoes Comments OT Dressing Comments Pt able to practice with LB dressing equipment with the pt for dressing needs. Pt's able to assist him at home. OT ADL-Toileting Comments OT Toileting Comments Not performed. OT ADL-Bathing Comments OT Bathing Comments Not performed M5 OT- IP IADL's Start: 04/27/23 12:44 Freq: Status: Active Protocol: Document 04/27/23 12:20 [facility] (Rec: 04/27/23 13:09 [facility] [id number]) OT-Instrumental Activities of Daily Living Deficits IADL Deficits Identified Deficits Home Safety Awareness Awareness of Need for Assistance at Home Good Awareness Ability to Problem Solve Emergency Able to Problem Solve Situations Money Management Money Management Comments Pt does it. Meal Preparation Meal Preparation Caregiver Provides Assist Warp Hand Warp Hand Caregiver Provides Assist M6 OT- IP Functional Cognition Start: 04/27/23 12:44 Freq: Status: Active Protocol: Document 04/27/23 12:20 [facility] (Rec: 04/27/23 13:09 [facility] [id number]) Cognitive Factors Limiting Selfcare Function Cognitive Ability Level of Alertness Alert Patient Orientation Name,Age,Birthday,Month,Date, Year,Day of Week,Place, Situation Attention Span Ability Capable of Focused Attention, Capable of Sustained Attention Ability to Follow Commands Able to Follow Multi-Step Commands Memory Description No Deficits Noted Safety Awareness No Deficits Noted Problem Solving Ability No deficits Noted Cognitive Comments Cognitive Assessment Comments Pt able to follow all his hip precautions for mobility and ADL need appropriately and safely. OT- Vision and Hearing OT- Hearing Assessment OT- Hearing Assessment Use of Hearing Aids OT- Vision Assessment Visual Acuity Glasses All The Time M7 OT- IP Mobility and Balance Start: 04/27/23 12:44 Freq: Status: Active Protocol: Document 04/27/23 12:20 [facility] (Rec: 04/27/23 13:09 [facility] [id number]) OT-Transfer Assessment Sit to and From Stand Sit to and from Stand Independent OT- Balance Assessment Sitting Balance and Reactions Static Sitting Balance Ability Normal Dynamic Sitting Balance Ability Normal Standing Balance and Reactions Static Standing Balance Ability Good Dynamic Standing Balance Ability Good M8 OT- IP Objective Assessments Start: 04/27/23 12:44 Freq: Status: Active Protocol: Document 04/27/23 12:20 [facility] (Rec: 04/27/23 13:09 [facility] [id number]) OT Gross Range of Motion Upper Extremity Range of Motion Assessment Within Functional Limits OT Strength Upper Extremity Strength Assessment Within Functional Limits M9 OT- IP Assessment and Plan Start: 04/27/23 12:44 Freq: Status: Active Protocol: Document 04/27/23 12:20 [facility] (Rec: 04/27/23 13:09 [facility] [id number]) OT Summary Assessment and Plan Potential Rehabilitation Potential Excellent Analytic Complexity at Evaluation Low Summary OT Impairments Balance,Functional Mobility, Dressing,Bathing Progress Towards Goals Progressing Toward Goals Assessment Summary Pt low complexity and doing well and able to follow all his anterior and posterior hip precautions with good safety and understanding. Pt to go home with his to assist. Goals Dressing Goal Independent,Toy Maker,Sock Aid Toileting Goal Independent Bathing Goal Standby Assistance Toilet Transfer Goal Independent Shower Transfer Goal Independent Days to Meet Goals 3 Frequency of Treatment Frequency Of Treatment Once a Day Treatment Plan OT Treatment Plan ADL Training,Functional Mobility,Patient/Family Education,Discharge Planning Discharge Recommendations OT Discharge Recommendations Home with Assistance, Outpatient PT Transportation Needs at Discharge Private Vehicle
--- NOTE | 2023-04-27 13:42 | CM.DANOTE ---
Initial DCP Assessment Note Reviewed chart for pt's status and anticipated home cg needs. Pt was with PT during this INFORMATION SECURITY OFFICER's attempt to visit, he was found to be ambulating w/walker w/OT, alert and oriented. Payor: Medicare Attending: Alessandro Hernandez Pt is a 77 year-old M admitted for left-sided total hip replacement. Surgery completed yesterday, pt has been working with OT/PT therapies. Recommendations for home d/c is to f/u OP w/Dr. Hernandez, f/u OP PT. will transport home, d/c later this afternoon. No further d/c needs are identified at this time. 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 Yes Advance Directives on File No History Provided By Medical Record Has Patient been admitted in last 30 No days? Prior Living Arrangements House Household Members spouse Type of transporation used prior to Relies on Others admit Independent with ADL's Yes Is patient alert and oriented? Yes Caregiver for Another No DME Already Rented / Owned Bath Bench,FWW / Walker,Cane Patient/Family Preference OP PT Therapy Comment Home w/spouse assistance. Barriers to Discharge No Discharge Plan Home Community Services Physical Therapy Referrals Initiated None needed Review Status In Process Please Provide Date Initial DC 04/27/23 Assessment Was Performed Pre-Anesthesia Assessment Start: 04/18/23 13:35 Freq: Status: Complete Protocol: Document 04/18/23 13:35 [facility] (Rec: 04/18/23 13:44 [facility] [id number]) Pre-Anesthesia Assessment Patient Information Reviewed Via Phone Assessment Assessment Completed With Patient Diagnostic Results BMP/CMP,CBC,EKG,Urinalysis Comment 03/16/23 Primary Care Provider Jo Ann Velez Medical Clearance Received Not Applicable Seen Specialist in Last 12 Months Yes Specialist Seen Hydraulic Press In Operator,Emergency, Orthopedist Primary Language Tajik Preferred Language Tajik Height 167.64 cm Weight 75.296 kg Body Mass Index (BMI) 26.8 Hearing Ability Hearing Impaired,Use of Hearing Aid Visual Impairment Partially Limited Visual Assist Glasses Dentition Type Teeth, Natural Present Barriers to Learning None Hx Anesthesia Reactions No Hx Family Anesthesia Reaction No Hx Malignant Hyperthermia No Hx Blood Transfusions No Hx Blood Transfusion Reaction No Anesthesia Review Requested No Farm Marketer No alcohol intake current alcohol intake frequency holidays/special occasions only Alcohol Intake Frequency Other: rare Smoking Status Former smoker how long ago did patient quit smoking Quit 1966 Substance Use Type does not use Musculoskeletal Symptoms Difficulty Walking,Limited Range of Motion,Numbness, Tingling Comment when hip dislocates Patient is completely paralyzed or No completely immobile Ambulatory Aid None/bed rest/nurse assist Gait/Transferring Normal/bedrest/immobile Mental Status Oriented to own ability Comment PT has seen patients walker so he will leave it home Is patient on oxygen? No Does patient have LACKEY/SOB No Hx Sleep Apnea Yes: Now wears oral appliance CPAP/BIPAP use prescribed not used Sleep apnea treatment Oral appliance Comment Patient will bring his oral appliance Currently Taking a Beta Jennie Yes: atenolol Can You Climb a Flight of Stairs Without Yes SOB Hx Chest Pain No Hx SOB No Hx Syncope or Dizziness No Anti-Coagulant Therapy ASA 81 mg Has a Expense Analyst No Cardiac Testing No Hx Pacemaker/ICD No Pacemaker Rep Required? No Cardiac Clearance Received Not Applicable Diet Type At Home Regular Dysphagia No Urinary Catheter Present No Hx Urinary Self Catheterization No Diabetes Yes: Pt checks blood sugar once a day HgbA1C 6.2 Date 03/16/23 Hx Drug Resistant Organism No Presence of External or Internal Medical Yes: Oral appliance for sleep Devices apnea, left hip Have you had any close contact with No someone diagnosed with COVID-19? Are you experiencing any of these No symptoms symptoms? Evaluation/Screening for possible COVID- Yes 19 infection completed? Received a COVID vaccine? Yes Received all doses? Yes Marital Status Lives With spouse Current Living Arrangements House Number of Floors (Floors) Two Floors Number of Stairs To Enter/Railing? 1 step to get in and 8 steps up to living space- railings present Support System Family,Spouse Does the Patient Have Assistance After Yes Surgery Patient Discharge Plan Description Return Home Feels Safe in Current Environment Yes Been Physically Hurt or Threatened By a No Person in Current Environment If Yes, Provider Notified No Do you have thoughts of harming yourself None or others? Are you currently considering suicide? No Do you have a plan to hurt yourself or No Plan others? Do You Have Any Spiritual Beliefs That No May Affect Your HC Choices? Do You Have Any Cultural Practices That No May Affect Your HC Choices? Identifying Code for Release of Patient declines Information Health Care Proxy/Next of Kin Lea Calhoun() Health Care Proxy Emergency Contact Name Lea Calhoun() Emergency Contact Advance Directives? Yes Advance Directives on File No Power of Hvac Instructor No PAC Instructions Bring CPAP/BIPAP,Diabetes instructions,Medications to take/avoid,Nasal antibiotic,No ETOH/petroleum product on skin DOS,NPO,Pre-surgical wash ,Sensory aids,Sturdy shoes/ comfortable clothes,Do not bring valuables and remove jewelry
--- NOTE | 2023-04-27 16:09 | PC.NURSE ---
Patient is A&OX4. VSS, afebrile on RA. He is cleared medically for discharge this a.m. pending PT/OT. He is ambulating with SBA using FWW. Dressing to L hip C/D/I. He is voiding without difficulty and tolerating meals well. Pt and OT clear patient for discharge home this afternoon. He verbalizes understanding of medications, hip precautions, site care, s/sx of infection, as well as follow up appointment. He is escorted via w/ch by HIGH LIFT OPERATOR with all of his belongings to private vehicle with for discharge home this afternoon at approximately 1330.
== END 2023-04-27 13:35 | disposition home or self-care (01) | DRG 468 ==
PROVIDERS: Admitting Provider Orthopaedic Surgery Adult Reconstructive Orthopaedic Surgery; PCP Nurse Practitioner; Referring Provider Orthopaedic Surgery Adult Reconstructive Orthopaedic Surgery; Visit Provider Orthopaedic Surgery Adult Reconstructive Orthopaedic Surgery
PROC: 0SRB06A Replacement of Left Hip Joint with Oxidized Zirconium on Polyethylene Synthetic Substitute, Uncemented, Open Approach (ICD-10-PCS; CPT 27130; principal; 2023-04-26 11:15)
DX: T84.021A Dislocation of internal left hip prosthesis, initial encounter (principal); E78.5 Hyperlipidemia, unspecified; I10 Essential (primary) hypertension; E11.9 Type 2 diabetes mellitus without complications; Z79.84 Long term (current) use of oral hypoglycemic drugs; Z87.891 Personal history of nicotine dependence
CPT/HCPCS: 36415; 73502; 76000; 82962; 85014; 85018; 87070; 87075; 87176; 87205; 97161; 97165; 97530; C1776; J0690; J1100; J2405; J2704; J3010

== ENCOUNTER 2023-10-13 08:25 | Emergency (ER) | payer MEDICARE, OTHER, SELFPAY ==
[2023-04-26 17:49] VITALS: BMI 26.8
[2023-10-13] VITALS (17 sets, daily range): BP systolic 110–193; BP diastolic 56–85; PULSE 65–77; RESP 10–18; TEMP 36.2; O2SAT 93–100; BMI 26.8
--- NOTE | 2023-10-13 08:27 | DI.RAD.S_ITS ---
PROCEDURE: XR HIP W PEL IF DONE LT 2V INDICATIONS: poss dislocation. Shortened TECHNIQUE: AP pelvis with lateral view(s) of the left hip(s). COMPARISON: [facility], CR, XR HIP W PEL IF DONE LT 2V, 04/26/2023, 16:37. FINDINGS: Bones: Total hip arthroplasty. There is posterior dislocation of the prosthetic left femoral head from the acetabulum. Pelvic ring appears intact. No suspicious bony lesions. 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 Soft tissues: The visualized bowel gas pattern is normal. Vascular calcifications consistent with atherosclerosis. IMPRESSION: Posterior dislocation of the prosthetic femoral head. Dictated by: Shanti Peña M.D. on 10/13/2023 at 8:53 Approved by: Shanti Peña M.D. on 10/13/2023 at 8:54
--- NOTE | 2023-10-13 08:34 | ED_ITS ---
HPI - Extremity Injury (Lower) General Chief Complaint: Extremity Injury, Lower Stated Complaint: Hip Dislocation Time Seen by Provider: 10/13/23 08:27 History of Present Illness HPI Narrative: 77-year-old male presents by EMS from home for possible hip dislocation. Patient states he was walking when he felt a pop and was lowered to the ground. History of numerous hip dislocations, however patient reports a 2nd hip replacement in April of 2023. This would be his 1st dislocation since his hip was replaced a 2nd time. Initial replacement 05/16/[address] Bartholomew, 2nd replacement 04/26/[address] Little Related Data Home Medications Medication Instructions Recorded Confirmed amlodipine 10 mg tablet 10 mg PO DAILY 05/09/22 04/26/23 atenolol 50 mg tablet 50 mg PO BEDTIME 05/09/22 04/26/23 atorvastatin 20 mg tablet 20 mg PO BEDTIME 05/09/22 04/26/23 cetirizine 10 mg tablet 10 mg PO DAILY 05/09/22 04/26/23 ferrous sulfate 325 mg (65 mg See Rx Instructions .Route .COMPLEX 05/09/22 04/26/23 iron) tablet fluticasone propionate 50 1 spray intranasal BID 05/09/22 04/26/23 mcg/actuation nasal spray,suspension (Flonase Allergy Relief) glipizide 5 mg tablet 2.5 mg PO DAILY 05/09/22 04/26/23 hydrochlorothiazide 25 mg tablet 25 mg PO DAILY 05/09/22 04/26/23 metformin 500 mg tablet,extended 1,000 mg PO BID 05/09/22 04/26/23 release 24 hr potassium chloride 20 mEq 20 meq PO DAILY 05/09/22 04/26/23 tablet,extended release terbinafine HCl 250 mg tablet 250 mg PO DAILY 05/09/22 04/26/23 Previous Rx's Medication Instructions Recorded acetaminophen 325 mg tablet 650 mg (2 x 325 mg) PO Q6H #60 tabs 04/27/23 aspirin 81 mg tablet,delayed 81 mg PO BID #60 tabs 04/27/23 release ibuprofen 600 mg tablet 600 mg PO Q6H #60 tabs 04/27/23 oxycodone 5 mg tablet 5 mg PO Q6H PRN Pain, Moderate 04/27/23 (4-6) #30 tabs polyethylene glycol 3350 17 gram 17 gm PO DAILY PRN Constipation 04/27/23 oral powder packet #10 ea Allergies Allergy/AdvReac Type Severity Reaction Status Date / Time No Known Drug Allergies Allergy Verified 04/26/23 10:15 Review of Systems Review of Systems Narrative: Negative except as noted above Patient History Medical History Osteoarthritis Seasonal allergies Sinus drainage HLD (hyperlipidemia) HTN (hypertension) HECTOR (obstructive sleep apnea) Hearing impaired Diabetes (~1987) Surgical History History of left hip replacement Hx of tonsillectomy Hx of appendectomy (1971) Hx of cholecystectomy (2018) Social History household members: spouse Smoking Status: Former smoker alcohol intake: current Smoking Status: Former smoker alcohol intake frequency: holidays/special occasions only Substance Use Type: does not use Exam Initial Vital Signs Initial Vital Signs: Vital Signs Temperature 97.1 F L 10/13/23 08:33 Pulse Rate 71 10/13/23 08:33 Respiratory Rate 18 10/13/23 08:33 Blood Pressure 193/85 H 10/13/23 08:33 Pulse Oximetry 100 10/13/23 08:33 Oxygen Delivery Method Room Air 10/13/23 08:33 Const: Awake, alert, uncomfortable, in pain Cardiac: regular rate, regular rhythm RESP: unlabored, clear bilaterally, no wheezing GI: Soft, nontender, nondistended, no rebound, no guarding MSK: Left lower extremity shortened, palpable pulses, intact senstation bilaterally Skin: Warm, Dry, intact, no rashes Neuro: AO x3, CN II-XII grossly intact Procedures Orthopedic Joint Reduction Joint #1: Time Out Performed: Yes Side: left Joint Reduction Location: hip Analgesia: procedural sedation Technique used: traction/counter-traction Post-reduction neuro exam: intact and no change Post-reduction vascular: intact and no change Post Reduction X-Ray Obtained: Yes Post Reduction X-Ray Results: reduced Splint Applied: Yes Patient Tolerated Procedure: Well and No complications Procedural Sedation Consent signed: Yes Time out performed: Yes Indication: fracture/dislocation reduction ASA Class: III Mallampati Airway Classification: Class II Time of Last PO Intake: 18:00 IV Propofol dose (mg): 90 Intraservice time/total sedation time (min): 15 ED Sedation Level: Moderate (Concious) Patient Tolerated Procedure: Well Complications: Respiratory Depression Requiring Ambulance Assistance Interventions: Airway repositioned and Assist by BVM Course Orders Ordered: ED Orders 10/13/23 08:27 XR hip w pel if done LT 2V Stat 10/13/23 09:25 XR hip w pel if done LT 2V Stat 10/13/23 10:05 CT pelvis wo con Stat Discontinued Medications Lorazepam (Lorazepam 2 Mg/Ml Inj) 2 mg IV NOW ONE Stop: 10/13/23 08:38 Last Admin: 10/13/23 09:05 Dose: 2 mg Documented By: JOSE Morphine Sulfate (Morphine 4 Mg/Ml Inj) 4 mg IV NOW ONE Stop: 10/13/23 08:30 Last Admin: 10/13/23 08:52 Dose: 4 mg Documented By: JOSE Propofol (Propofol 200 Mg/20 Ml Vial) 150 mg IV NOW ONE Stop: 10/13/23 08:39 Last Admin: 10/13/23 09:21 Dose: 90 mg Documented By: JOSE Vital Signs Vital signs: Vital Signs - 8 hr 10/13/23 08:33 10/13/23 09:04 10/13/23 09:10 Temperature 97.1 F L Pulse Rate 71 65 Respiratory Rate 18 13 Blood Pressure 193/85 H 148/70 H Pulse Oximetry 100 100 Oxygen Delivery Method Room Air Oxygen Flow Rate 10/13/23 09:10 10/13/23 09:16 10/13/23 09:16 Temperature Pulse Rate 72 69 Respiratory Rate 14 10 L Blood Pressure 159/75 H Pulse Oximetry 100 99 Oxygen Delivery Method Room Air Room Air Oxygen Flow Rate 10/13/23 09:20 10/13/23 09:20 10/13/23 09:23 Temperature Pulse Rate 72 Respiratory Rate 13 Blood Pressure 155/73 H Pulse Oximetry 98 Oxygen Delivery Method Room Air Ambu Bag Oxygen Flow Rate 10/13/23 09:25 10/13/23 09:25 10/13/23 09:30 Temperature Pulse Rate 69 70 Respiratory Rate 13 12 Blood Pressure 118/66 Pulse Oximetry 100 100 Oxygen Delivery Method Ambu Bag Ambu Bag Oxygen Flow Rate 10/13/23 09:30 10/13/23 09:32 10/13/23 09:35 Temperature Pulse Rate 69 Respiratory Rate 14 Blood Pressure 122/56 L Pulse Oximetry 96 97 Oxygen Delivery Method Room Air Room Air Oxygen Flow Rate 10/13/23 09:35 10/13/23 09:40 10/13/23 09:40 Temperature Pulse Rate 72 Respiratory Rate 15 Blood Pressure 118/58 L 126/60 Pulse Oximetry 94 Oxygen Delivery Method Room Air Oxygen Flow Rate 10/13/23 09:45 10/13/23 09:45 10/13/23 09:50 Temperature Pulse Rate 71 69 Respiratory Rate 14 12 Blood Pressure 115/63 Pulse Oximetry 93 93 Oxygen Delivery Method Oxygen Flow Rate 10/13/23 09:50 10/13/23 09:55 10/13/23 09:55 Temperature Pulse Rate 73 Respiratory Rate 12 Blood Pressure 111/58 L 129/62 Pulse Oximetry 94 Oxygen Delivery Method Room Air Oxygen Flow Rate 10/13/23 10:00 10/13/23 10:00 10/13/23 10:30 Temperature Pulse Rate 70 74 Respiratory Rate 12 12 Blood Pressure 110/56 L Pulse Oximetry 94 93 Oxygen Delivery Method Room Air Oxygen Flow Rate 10/13/23 11:00 10/13/23 11:07 10/13/23 11:07 Temperature Pulse Rate 73 77 Respiratory Rate 12 12 Blood Pressure 119/62 Pulse Oximetry 93 96 Oxygen Delivery Method Room Air Oxygen Flow Rate MDM - Extremity Injury (Lower) Imaging Data Extremity x-ray #1: Radiologist's Impression: PROCEDURE: XR HIP W PEL IF DONE LT 2V INDICATIONS: poss dislocation. Shortened TECHNIQUE: AP pelvis with lateral view(s) of the left hip(s). COMPARISON: [facility], XR HIP W PEL IF DONE LT 2V, 04/26/2023, 16:37. FINDINGS: Bones: Total hip arthroplasty. There is posterior dislocation of the prosthetic left femoral head from the acetabulum. Pelvic ring appears intact. No suspicious bony lesions. 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 Soft tissues: The visualized bowel gas pattern is normal. Vascular calcifications consistent with atherosclerosis. IMPRESSION: Posterior dislocation of the prosthetic femoral head. Dictated by: Shanti Peña M.D. on 10/13/2023 at 8:53 Approved by: Shanti Peña M.D. on 10/13/2023 at 8:54 Extremity x-ray #2: Radiologist's Impression: PROCEDURE: XR HIP W PEL IF DONE LT 2V INDICATIONS: POPST REDUCTION ATTEMPT TECHNIQUE: AP pelvis and lateral view of the hip acquired. COMPARISON: None. FINDINGS: Bones: Patient is status post reduction of left hip arthroplasty, with hardware components in expected positions. The hip joint appears congruent. The visualized bony structures appear intact. Soft tissues: Overlying postoperative changes are noted. No suspicious soft tissue densities. IMPRESSION: Successful reduction of left hip arthroplasty. Dictated by: Gabriel Herrera M.D. on 10/13/2023 at 8:39 Approved by: Gabriel Herrera M.D. on 10/13/2023 at 8:41 CT scan - abdomen/pelvis: Radiologist's Impression: PROCEDURE: CT PEL WO CON INDICATIONS: recurrent L hip dislocation TECHNIQUE: Noncontrast 3 mm axial sections acquired through the bony pelvis, with coronal and sagittal reformatting. COMPARISON: None. FINDINGS: Image quality: Excellent. Bones: Total fixed femoral acetabular prosthesis with appropriate positioning of the prosthetic femoral head within the prosthetic acetabular cup. No bony fracture identified. No hardware fracture lines are identified. Soft tissues: Moderate edema along the left hip musculature IMPRESSION: Appropriate positioning of the left femoral acetabular total hip prosthesis with surrounding edema consistent with prior dislocation. Dictated by: Gabriel Herrera M.D. on 10/13/2023 at 9:50 Approved by: Gabriel Herrera M.D. on 10/13/2023 at 9:57 MDM Narrative Medical decision making narrative: Dislocation of left hip. Successfully reduced per procedure note. Dr. Little informed dislocation and images sent to him for review. He will follow up with the patient in clinic. Patient monitored until successfully recovered from sedation and discharged in stable condition with his knee brace to the care of . Discharge Plan Departure Patient Disposition: Home Clinical Impression: Closed dislocation of left hip Qualifiers: Encounter type: initial encounter Qualified Code(s): S73.005A - Unspecified dislocation of left hip, initial encounter Instructions: DI for Hip Dislocation -- Adult, DI for Moderate Sedation Activity Restrictions/Additional Instructions: Wear your knee brace. Follow up with Dr. Little Prescriptions: No Action atorvastatin 20 mg Tablet 20 mg PO BEDTIME cetirizine 10 mg Tablet 10 mg PO DAILY amlodipine 10 mg Tablet 10 mg PO DAILY ferrous sulfate 325 mg (65 mg iron) Tablet See Rx Instructions .ROUTE .COMPLEX Patient Comments: every other day Rx Instructions: 325 mg orally hydrochlorothiazide 25 mg Tablet 25 mg PO DAILY fluticasone propionate [Flonase Allergy Relief] 50 mcg/actuation Dodson,Suspension 1 spray INTRANASAL BID Rx Instructions: administer into each nostril metformin 500 mg Tablet Extended Release 24 Hr 1,000 mg PO BID atenolol 50 mg Tablet 50 mg PO BEDTIME glipizide 5 mg Tablet 2.5 mg PO DAILY potassium chloride 20 mEq Tablet Extended Release 20 meq PO DAILY terbinafine HCl 250 mg Tablet 250 mg PO DAILY acetaminophen 325 mg Tablet 650 mg PO Q6H Qty: 60 0RF polyethylene glycol 3350 17 gram Powder In Packet 17 gm PO DAILY PRN (Reason: Constipation) Qty: 10 0RF aspirin 81 mg Tablet,Delayed Release (Dr/Ec) 81 mg PO BID Qty: 60 0RF ibuprofen 600 mg Tablet 600 mg PO Q6H Qty: 60 0RF oxycodone 5 mg Tablet 5 mg PO Q6H PRN (Reason: Pain, Moderate (4-6)) Qty: 30 0RF Referrals: Jo Ann Velez ARNP [Primary Care Provider] - Alessandro Little MD [Physician] - Stand Alone Forms: Patient Portal/API
[2023-10-13] MEDS: MORPHINE 4 MG/ML INJ IV (08:52)
[2023-10-13] MEDS: LORazepam 2 MG/ML INJ IV (09:05)
[2023-10-13] MEDS: propofoL 200 MG/20 ML VIAL 150 MG IV (09:21)
--- NOTE | 2023-10-13 09:25 | DI.RAD.S_ITS ---
PROCEDURE: XR HIP W PEL IF DONE LT 2V INDICATIONS: POPST REDUCTION ATTEMPT TECHNIQUE: AP pelvis and lateral view of the hip acquired. COMPARISON: None. FINDINGS: Bones: Patient is status post reduction of left hip arthroplasty, with hardware components in expected positions. The hip joint appears congruent. The visualized bony structures appear intact. Soft tissues: Overlying postoperative changes are noted. No suspicious soft tissue densities. IMPRESSION: Successful reduction of left hip arthroplasty. Dictated by: Gabriel Herrera M.D. on 10/13/2023 at 8:39 Approved by: Gabriel Herrera M.D. on 10/13/2023 at 8:41
--- NOTE | 2023-10-13 09:29 | PC.NURSE ---
Pt consent form signed and witnessed. Dr. De Luna, RT, 2x RN's at bedside for sedation and reduction. Pt tolerated procedure well and Xray immediately at bedside after reduction for relocation confirmation. Pt has history of HECTOR and required ambu bag administered by RT from [id number]. Oxygen saturations maintained above 90% ( See Vitals). Pt's Lea was called @ 0941 and updated, ETA 1045. Pt resting in bed, responsive to verbal stimuli.
--- NOTE | 2023-10-13 10:05 | DI.CT.S_ITS ---
PROCEDURE: CT PEL WO CON INDICATIONS: recurrent L hip dislocation TECHNIQUE: Noncontrast 3 mm axial sections acquired through the bony pelvis, with coronal and sagittal reformatting. COMPARISON: None. FINDINGS: Image quality: Excellent. Bones: Total fixed femoral acetabular prosthesis with appropriate positioning of the prosthetic femoral head within the prosthetic acetabular cup. No bony fracture identified. No hardware fracture lines are identified. Soft tissues: Moderate edema along the left hip musculature IMPRESSION: Appropriate positioning of the left femoral acetabular total hip prosthesis with surrounding edema consistent with prior dislocation. Dictated by: Gabriel Herrera M.D. on 10/13/2023 at 9:50 Approved by: Gabriel Herrera M.D. on 10/13/2023 at 9:57
== END 2023-10-13 11:27 | disposition home or self-care (01) ==
PROVIDERS: Emergency Provider Emergency Medicine; PCP Nurse Practitioner
DX: S73.005A Unspecified dislocation of left hip, initial encounter (principal); Z96.642 Presence of left artificial hip joint
CPT/HCPCS: 27265; 72192; 73502; 96374; 96375; 99152; 99284; 99285; J2060; J2270; J2704

== ENCOUNTER 2024-01-17 14:40 | Emergency (ER) | payer MEDICARE, OTHER, SELFPAY ==
[2023-04-26 17:49] VITALS: BMI 26.8
[2024-01-17] VITALS (19 sets, daily range): BP systolic 119–165; BP diastolic 55–91; PULSE 72–89; RESP 14–28; TEMP 36.5; O2SAT 94–100; BMI 26.6
--- NOTE | 2024-01-17 14:50 | DI.RAD.S_ITS ---
PROCEDURE: XR HIP W PEL IF DONE LT 2V INDICATIONS: Possible dislocation TECHNIQUE: AP pelvis with lateral view(s) of the left hip(s). COMPARISON: [facility], , XR HIP W PEL IF DONE LT 2V, 10/13/2023, 9:24. FINDINGS: Bones: Left hip arthroplasty. There is inferior dislocation of the left hip prosthetic femoral head from the prosthetic acetabulum. No discrete fractures identified. Severe arthritic changes present in the right hip. Soft tissues: The visualized bowel gas pattern is normal. No suspicious soft tissue calcifications. IMPRESSION: Inferior left hip arthroplasty dislocation. No visualized fracture. Dictated by: Kia Brar M.D. on 01/17/2024 at 15:36 Approved by: Kia Brar M.D. on 01/17/2024 at 15:37
[2024-01-17] MEDS: MORPHINE 4 MG/ML INJ IV (15:09)
--- NOTE | 2024-01-17 15:21 | PC.NURSE ---
pt stated they wanted water, informed pt he can not have water at this time noticed the pt getting nauseas, emesis bag provided pt had a period of emesis RN aware suction at bedside
[2024-01-17] MEDS: ONDANSETRON 4 MG/2 ML INJ IV (15:30)
--- NOTE | 2024-01-17 15:58 | ED_ITS ---
HPI - General Adult General Chief complaint: Extremity Injury, Upper Stated complaint: GLF, Left Hip Pain Time Seen by Provider: 01/17/24 14:50 Source: patient and EMS Mode of arrival: EMS Limitations: no limitations History of Present Illness HPI narrative: Patient is a 78 year old male. Last April underwent a left total hip replacement. Is here for evaluation of a possible left hip dislocation. This is the 2nd time that he was dislocated. The last time was a couple months ago. Today he was getting up off the toilet wiping himself after having a bowel movement when stated that his hip dislocated. No other injuries from the event. Arrived by EMS. Related Data Home Medications Medication Instructions Recorded Confirmed amlodipine 10 mg tablet 10 mg PO DAILY 05/09/22 04/26/23 atenolol 50 mg tablet 50 mg PO BEDTIME 05/09/22 04/26/23 atorvastatin 20 mg tablet 20 mg PO BEDTIME 05/09/22 04/26/23 cetirizine 10 mg tablet 10 mg PO DAILY 05/09/22 04/26/23 ferrous sulfate 325 mg (65 mg See Rx Instructions .Route .COMPLEX 05/09/22 04/26/23 iron) tablet fluticasone propionate 50 1 spray intranasal BID 05/09/22 04/26/23 mcg/actuation nasal spray,suspension (Flonase Allergy Relief) glipizide 5 mg tablet 2.5 mg PO DAILY 05/09/22 04/26/23 hydrochlorothiazide 25 mg tablet 25 mg PO DAILY 05/09/22 04/26/23 metformin 500 mg tablet,extended 1,000 mg PO BID 05/09/22 04/26/23 release 24 hr potassium chloride 20 mEq 20 meq PO DAILY 05/09/22 04/26/23 tablet,extended release terbinafine HCl 250 mg tablet 250 mg PO DAILY 05/09/22 04/26/23 Previous Rx's Medication Instructions Recorded acetaminophen 325 mg tablet 650 mg (2 x 325 mg) PO Q6H #60 tabs 04/27/23 aspirin 81 mg tablet,delayed 81 mg PO BID #60 tabs 04/27/23 release ibuprofen 600 mg tablet 600 mg PO Q6H #60 tabs 04/27/23 oxycodone 5 mg tablet 5 mg PO Q6H PRN Pain, Moderate 04/27/23 (4-6) #30 tabs polyethylene glycol 3350 17 gram 17 gm PO DAILY PRN Constipation 04/27/23 oral powder packet #10 ea Allergies Allergy/AdvReac Type Severity Reaction Status Date / Time No Known Drug Allergies Allergy Verified 04/26/23 10:15 Review of Systems Musculoskeletal Musculoskeletal: Reports system reviewed and no additional complaints, except as documented Integumentary/Breasts Skin/Breast: Reports system reviewed and no additional complaints, except as documented Neurologic Neurologic: Reports system reviewed and no additional complaints, except as documented Patient History Medical History Osteoarthritis Seasonal allergies Sinus drainage HLD (hyperlipidemia) HTN (hypertension) HECTOR (obstructive sleep apnea) Hearing impaired Diabetes (~1987) Surgical History History of left hip replacement Hx of tonsillectomy Hx of appendectomy (1971) Hx of cholecystectomy (2018) Social History household members: spouse Smoking Status: Former smoker alcohol intake: current Smoking Status: Former smoker alcohol intake frequency: holidays/special occasions only Substance Use Type: does not use Exam Initial Vital Signs Initial Vital Signs: Vital Signs Pulse Rate 76 01/17/24 14:46 Pulse Oximetry 98 01/17/24 14:46 HENMT Head: normal to inspection and normocephalic Cardio Pulses: dorsalis pedis present on the left Extrem General: capillary refill normal Other: Obvious deformity with shortening and internal rotation of the left hip. Discomfort with palpation. Procedures Orthopedic Joint Reduction Joint #1: Time Out Performed: Yes Side: left Joint Reduction Location: hip Analgesia: procedural sedation Technique used: direct manipulation Post-reduction neuro exam: no change Post-reduction vascular: no change Post Reduction X-Ray Obtained: Yes Post Reduction X-Ray Results: reduced Splint Applied: Yes Orthopedic Splinting/Casting Injury #1: Side: left Lower Extremity Injury Location: upper leg Lower Extremity Immobilizer: knee immobilizer Post splinting neuro exam: no change Post splinting vascular exam: no change Placed by: Provider Procedural Sedation Consent signed: Yes Time out performed: Yes Indication: fracture/dislocation reduction Mallampati Airway Classification: Class II Preparation: monitoring coordinator applied, pulse oximeter, capnometry used, supplemental O2 applied, suction/airway equipment at bedside and IV secured IV Propofol dose (mg): 100 Intraservice time/total sedation time (min): 15 ED Sedation Level: Moderate (Concious) Patient Tolerated Procedure: Well Complications: none Course Orders Ordered: ED Orders 01/17/24 14:50 XR hip w pel if done LT 2V Stat 01/17/24 16:29 XR hip w pel if done LT 2V Stat Discontinued Medications Sodium Chloride (Normal Saline 0.9%) 1,000 mls @ 125 mls/hr IV CONT TIFFANY Last Infusion: 01/17/24 18:01 Dose: Infused Documented By: Admin: 01/17/24 16:10 Dose: 125 mls/hr Documented By: SARAI Morphine Sulfate (Morphine 4 Mg/Ml Inj) 4 mg IV NOW ONE Stop: 01/17/24 15:06 Last Admin: 01/17/24 15:09 Dose: 4 mg Documented By: CHRISTOPHER Ondansetron HCl (Ondansetron 4 Mg/2 Ml Inj) 4 mg IV NOW ONE Stop: 01/17/24 15:26 Last Admin: 01/17/24 15:30 Dose: 4 mg Documented By: SARAI Propofol (Propofol 200 Mg/20 Ml Vial) 100 mg IV NOW ONE Stop: 01/17/24 15:42 Last Admin: 01/17/24 16:22 Dose: 100 mg Documented By: SARAI Vital Signs Vital signs: Vital Signs - 8 hr 01/17/24 14:46 01/17/24 14:47 01/17/24 14:47 Temperature Pulse Rate 76 74 Respiratory Rate Blood Pressure 163/72 H Pulse Oximetry 98 99 Oxygen Delivery Method 01/17/24 14:51 01/17/24 15:12 01/17/24 15:13 Temperature 97.7 F Pulse Rate 72 76 Respiratory Rate 14 Blood Pressure 163/72 H 165/76 H Pulse Oximetry 98 100 Oxygen Delivery Method Room Air 01/17/24 15:13 01/17/24 15:30 01/17/24 15:30 Temperature Pulse Rate 75 72 Respiratory Rate Blood Pressure 148/67 H Pulse Oximetry 100 99 Oxygen Delivery Method 01/17/24 15:40 01/17/24 16:00 01/17/24 16:00 Temperature Pulse Rate 78 78 Respiratory Rate 18 Blood Pressure 150/72 H Pulse Oximetry 100 Oxygen Delivery Method 01/17/24 16:10 01/17/24 16:10 01/17/24 16:15 Temperature Pulse Rate 77 Respiratory Rate Blood Pressure 146/72 H 153/78 H Pulse Oximetry 100 Oxygen Delivery Method 01/17/24 16:15 01/17/24 16:20 01/17/24 16:20 Temperature Pulse Rate 79 80 Respiratory Rate Blood Pressure 152/78 H Pulse Oximetry 100 100 Oxygen Delivery Method 01/17/24 16:25 01/17/24 16:25 01/17/24 16:30 Temperature Pulse Rate 79 79 Respiratory Rate 28 H 21 Blood Pressure 119/91 H Pulse Oximetry 95 98 Oxygen Delivery Method 01/17/24 16:31 01/17/24 16:31 01/17/24 16:35 Temperature Pulse Rate 79 80 Respiratory Rate 18 22 Blood Pressure 130/81 Pulse Oximetry 95 99 Oxygen Delivery Method 01/17/24 16:35 01/17/24 16:46 01/17/24 16:46 Temperature Pulse Rate 81 Respiratory Rate 28 H Blood Pressure 135/55 L 139/63 Pulse Oximetry 98 Oxygen Delivery Method 01/17/24 16:50 01/17/24 16:50 01/17/24 17:00 Temperature Pulse Rate 81 82 Respiratory Rate 23 18 Blood Pressure 135/68 Pulse Oximetry 94 94 Oxygen Delivery Method 01/17/24 17:00 01/17/24 17:30 01/17/24 17:30 Temperature Pulse Rate 89 Respiratory Rate 21 Blood Pressure 126/58 L 140/69 Pulse Oximetry 95 Oxygen Delivery Method Medical Decision Making Imaging Data Extremity x-ray #1: Radiologist's Impression: PROCEDURE: XR HIP W PEL IF DONE LT 2V INDICATIONS: Possible dislocation TECHNIQUE: AP pelvis with lateral view(s) of the left hip(s). COMPARISON: [facility], XR HIP W PEL IF DONE LT 2V, 10/13/2023, 9:24. FINDINGS: Bones: Left hip arthroplasty. There is inferior dislocation of the left hip prosthetic femoral head from the prosthetic acetabulum. No discrete fractures identified. Severe arthritic changes present in the right hip. Soft tissues: The visualized bowel gas pattern is normal. No suspicious soft tissue calcifications. IMPRESSION: Inferior left hip arthroplasty dislocation. No visualized fracture Extremity x-ray #2: Radiologist's Impression: PROCEDURE: XR HIP W PEL IF DONE LT 2V INDICATIONS: post reduction TECHNIQUE: AP pelvis with lateral view(s) of the left hip(s). COMPARISON: [facility], CR, XR HIP W PEL IF DONE LT 2V, 01/17/2024, 14:53. FINDINGS: Bones: No fractures or dislocations. Pelvic ring appears intact. No suspicious bony lesions. Interval reduction of left hip arthroplasty. There appears to be good anatomic alignment. No discrete fractures identified. Severe right hip arthritic change. Soft tissues: The visualized bowel gas pattern is normal. No suspicious soft tissue calcifications. IMPRESSION: Interval reduction with good anatomic alignment of left hip arthroplasty. MDM Narrative Medical decision making narrative: Initial x-ray shows anterior hip dislocation that was successfully reduced after procedural sedation here in the emergency department. A knee immobilizer was placed. Repeat x-ray shows reduction of the dislocation. Will discharge patient home with instructions to contact his orthopedic provider for follow-up. He was given return precautions. He expressed understanding and agreement. Discharge Plan Departure Patient Disposition: Home Clinical Impression: Anterior dislocation of left hip Instructions: DI for Hip Dislocation -- Adult Activity Restrictions/Additional Instructions: I do recommend that tomorrow you contact the orthopedic surgeon who did your hip replacement to discuss further workup. Use the knee immobilizer like we discussed. Return to the emergency department for new symptoms. Prescriptions: No Action atorvastatin 20 mg Tablet 20 mg PO BEDTIME cetirizine 10 mg Tablet 10 mg PO DAILY amlodipine 10 mg Tablet 10 mg PO DAILY ferrous sulfate 325 mg (65 mg iron) Tablet See Rx Instructions .ROUTE .COMPLEX Patient Comments: every other day Rx Instructions: 325 mg orally hydrochlorothiazide 25 mg Tablet 25 mg PO DAILY fluticasone propionate [Flonase Allergy Relief] 50 mcg/actuation [place],Suspension 1 spray INTRANASAL BID Rx Instructions: administer into each nostril metformin 500 mg Tablet Extended Release 24 Hr 1,000 mg PO BID atenolol 50 mg Tablet 50 mg PO BEDTIME glipizide 5 mg Tablet 2.5 mg PO DAILY potassium chloride 20 mEq Tablet Extended Release 20 meq PO DAILY terbinafine HCl 250 mg Tablet 250 mg PO DAILY acetaminophen 325 mg Tablet 650 mg PO Q6H Qty: 60 0RF polyethylene glycol 3350 17 gram Powder In Packet 17 gm PO DAILY PRN (Reason: Constipation) Qty: 10 0RF aspirin 81 mg Tablet,Delayed Release (Dr/Ec) 81 mg PO BID Qty: 60 0RF ibuprofen 600 mg Tablet 600 mg PO Q6H Qty: 60 0RF oxycodone 5 mg Tablet 5 mg PO Q6H PRN (Reason: Pain, Moderate (4-6)) Qty: 30 0RF Referrals: Jo Ann Velez ARNP [Primary Care Provider] - Stand Alone Forms: Patient Portal/API
[2024-01-17] MEDS: SODIUM CHLORIDE 0.9% 1,000 ML 125 ML IV (16:10)
[2024-01-17] MEDS: propofoL 200 MG/20 ML VIAL 100 MG IV (16:22)
--- NOTE | 2024-01-17 16:29 | DI.RAD.S_ITS ---
PROCEDURE: XR HIP W PEL IF DONE LT 2V INDICATIONS: post reduction TECHNIQUE: AP pelvis with lateral view(s) of the left hip(s). COMPARISON: [facility], , XR HIP W PEL IF DONE LT 2V, 01/17/2024, 14:53. FINDINGS: Bones: No fractures or dislocations. Pelvic ring appears intact. No suspicious bony lesions. Interval reduction of left hip arthroplasty. There appears to be good anatomic alignment. No discrete fractures identified. Severe right hip arthritic change. Soft tissues: The visualized bowel gas pattern is normal. No suspicious soft tissue calcifications. IMPRESSION: Interval reduction with good anatomic alignment of left hip arthroplasty. Dictated by: Kia Brar M.D. on 01/17/2024 at 17:07 Approved by: Kia Brar M.D. on 01/17/2024 at 17:07
--- NOTE | 2024-01-17 18:16 | RT ---
At bedside for PRS for Dis. Hip. Suction and bag mask unit at [facility] functional. Pt on 3 lpm nc and elaine well. Jaw thrust applied, pt bagged about 1 min and elaine well. Pt awake and alert, released by Rn. pt on 2 lpm nc
== END 2024-01-17 18:03 | disposition home or self-care (01) ==
PROVIDERS: Emergency Provider Emergency Medicine; PCP Nurse Practitioner
DX: S73.035A Other anterior dislocation of left hip, initial encounter (principal); X58.XXXA Exposure to other specified factors, initial encounter
CPT/HCPCS: 27265; 73502; 96374; 96375; 99152; 99284; J2270; J2405; J2704